=== PATIENT | male | born 1980 | race Caucasian/White ===

== ENCOUNTER 2023-04-14 09:21 | Emergency (ER) | payer MEDICAID, SELFPAY ==
--- NOTE | ~2023-04-14 | XR_ITS ---
EXAMINATION: XR ABDOMEN KUB CLINICAL INDICATION: Abdominal pain, constipation. COMPARISON: None available. TECHNIQUE: AP view of the abdomen. FINDINGS: There is scattered stool and gas seen throughout the colon without distention. The small bowel loops are normal caliber. There is no organomegaly. There is a 1 cm and is 0.61 cm radiopaque densities overlying the right kidney likely stones. Small cluster of stones grouped together measuring 8mm overlying the lower pole left kidney. There is mild degenerative disc changes L2-L3 disc level. No visible acute fracture or dislocation seen. SI joints are symmetrical and normal. XR/XR KUB IMPRESSION: 1. Mild constipation. No acute process seen. 2. Mild degenerative disc changes L2-L3 disc level. 3. Radiopaque densities overlying both kidneys likely calculi.
[2023-04-14 09:28] VITALS: BP 168/86; PULSE 62; RESP 21; TEMP 36.9; O2SAT 97; BMI 36.2
--- NOTE | 2023-04-14 09:50 | ECG_ITS ---
Test Reason : cp Blood Pressure : / mmHG Vent. Rate : 061 BPM Atrial Rate : 061 BPM P-R Int : 150 ms QRS Dur : 096 ms QT Int : 392 ms P-R-T Axes : 014 036 018 degrees QTc Int : 394 ms Normal sinus rhythm Nonspecific T wave abnormality Abnormal ECG When compared with ECG of 20-JUL-2012 14:36, RSR' pattern in V1 is no longer Present Referred By: Generic ED Physician Electronically Signed By:KIMBERLY SANCHEZ
[2023-04-14 11:11] LABS: MANUAL DIFF FLAG NO
[2023-04-14 11:13] LABS: Basophils Absolute Auto 0.1 X10*3/uL (0.0-0.2); Basophils Percent Auto 0.6 % (0-2); Eosinophils Percent Auto 0.2 % (0-4); Hematocrit 41.8 % (42.0-52.0); Hemoglobin 14.5 g/dl (14.0-18.0); Imm Gran Abs Auto 0.02 X10*3/uL (0.00-0.03); Imm Gran Pct Auto 0.2 % (0.0-0.4); Lymphocytes Absolute Auto 1.9 X10*3/uL (1.2-4.9); Lymphocytes Percent Auto 21.4 % (20-40); Mean Corpuscular HGB Conc 34.7 g/dl (31.0-36.0); Mean Corpuscular Hemoglobin 29.4 pg (27.0-33.0); Mean Corpuscular Volume 84.6 fL (80.0-98.0); Mean Platelet Volume 12.1 fL (9.4-12.4); Monocytes Absolute Auto 0.8 X10*3/uL (0.1-1.2); Monocytes Percent Auto 8.4 % (2-11); Neutrophils Absolute Auto 6.2 x10*3/uL (2.0-8.3); Neutrophils Percent Auto 69.2 % (45-73); Red Blood Count 4.94 X10*6/uL (4.60-5.80); Red Cell Distribution Width 12.8 % (11.0-16.0)
[2023-04-14 11:28] LABS: Anion Gap 13 (12-20); Blood Urea Nitrogen 14 mg/dL (9-16); Carbon Dioxide 20 mmol/L (22-29); Chloride 107 mmol/L (96-108); Creatinine Clr Calc Pharmacy 147.2; Estimated Glomerular Filt Rate > 60; Glucose Random 99 mg/dL (60-115); Magnesium 2.2 mg/dL (1.6-2.6); Potassium 3.8 mmol/L (3.3-5.1); Sodium 136 mmol/L (135-145)
[2023-04-14 11:31] LABS: Platelet Count 89 X10*3/uL (160-400)
--- NOTE | 2023-04-14 11:54 | ED_ITS ---
HPI - General Adult General Chief complaint: General Medical Stated complaint: Chest pain, insomnia Time Seen by Provider: 04/14/23 11:54 Source: patient and family (patient's sister and mother) Mode of arrival: ambulatory Limitations: no limitations History of Present Illness HPI narrative: Patient is a 42 year old assigned male at with a history of heroin use presenting to the emergency department today with general body aches and no energy. Patient states that he feels generally unwell and wants help detoxing from heroin. Patient states that he hasn't had a bowel movement in a week. Patient denies any dizziness, lightheadedness, abdominal pain, nausea, vomiting, fever, chills, blurry vision, double vision, loss of vision, chest pain, difficulty breathing, shortness of breath, back pain, night sweats, pain with urination, increased urinary frequency, increased urinary urgency, blood in his urine or stool, syncope or a near syncopal episode, recent trauma or falls, bowel incontinence, bladder incontinence, or any other complaints at this time. Relieving factors: none Exacerbating factors: none Treatments prior to arrival: none Related Data Previous Rx's Medication Instructions Recorded hydroxyzine HCl 25 mg tablet 25 mg PO BID PRN anxiety #14 tabs 04/14/23 Allergies Allergy/AdvReac Type Severity Reaction Status Date / Time No Known Allergies Allergy Unverified 04/14/23 14:45 Review of Systems 2 Constitutional: Constitutional: Reports no additional constitutional complaints, Reports body ache(s), Denies chills, Denies fever(s), Denies night sweats and Reports weakness Eyes: Eyes: Reports no additional eye complaints, Denies blurry vision, Denies change in vision, Denies diplopia, Denies eye discharge, Denies loss of vision and Denies eye pain ENT: Denies dizziness Cardiovascular: Cardiovascular: Reports no additional cardiovascular complaints, Denies chest pain, Denies lightheadedness, Denies Loss of Consciousness and Denies dyspnea Respiratory: Respiratory: Reports no additional respiratory complaints and Denies dyspnea Gastrointestinal: Gastrointestinal: Reports no additional gastrointestinal complaints, Denies abdominal pain, Denies melena, Denies hematochezia, Denies change in bowel habits, Denies change in stool character and Reports constipation Genitourinary: Genitourinary: Reports no additional male genitourinary complaints, Denies hematuria, Denies oliguria, Denies difficulty urinating, Denies dysuria, Denies urinary frequency, Denies urinary hesitancy, Denies urinary incontinence and Denies urinary urgency Musculoskeletal: Musculoskeletal: Reports no additional musculoskeletal complaints, Denies numbness and Denies tingling Neurologic: Denies dizziness, Denies loss of vision, Denies numbness, Denies tingling and Reports weakness Psychiatric: Psychiatric: Reports no additional psychiatric complaints Endocrine: Endocrine: Reports no additional endocrine complaints Hematologic/Lymphatic: Hematologic/Lymphatic: Reports no additional hematologic/lymphatic complaints Allergic/Immunologic: Allergic/Immunologic: Reports no additional allergic/immunologic complaints PMFSH Past Medical History Attestation statement: The following information was validated with the patient. (all information validated with the patient's mother and sister.) Source: old records reviewed, obtained from family (patient's sister and mother provided additional history and confirmed the history provided by the patient.) and nursing notes reviewed Onset Date is defined in the Problem List Problems that require an onset date and time if occurred within 24 hrs of arrival to the ED Aortic Dissection and Rupture; Neurologic impairment; Cardiopulmonary Arrest; Endotracheal Intubation; Insertion or Replacement of Mechanical Circulatory Assist Device Physical Exam ED Vital Signs: Vital Signs - 24 hr 04/14/23 09:28 04/14/23 12:20 04/14/23 14:22 Temperature 98.5 F 98.1 F Pulse Rate 62 54 59 Respiratory Rate 21 H 18 19 Blood Pressure 168/86 H 142/90 H 158/93 H Pulse Oximetry 97 97 98 Oxygen Delivery Method Room Air Room Air Room Air BMI result Body Mass Index 36.2 Const General: cooperative, no acute distress, alert and awake Nutritional Appearance: well nourished Orientation/consciousness: patient oriented x3 Limitations: no limitations [facility] Head: Yes normal to inspection and Yes atraumatic Ears: hearing grossly normal bilaterally and external ears normal General nose exam: Normal external nose present, no nasal discharge noted and no epistaxis Face and sinus: Yes normal facial exam, No abrasion and No laceration Mouth: Normal oral and palatal mucosa present, no drooling and no muffled voice Eyes General: appearance normal, both eyes and all related structures Periorbital: periorbital findings normal Eyelids: Yes eyelids normal Conjunctivae: conjunctivae normal Pupils: Equal, round and reactive pupils present EOM: EOMs intact bilaterally Neck Neck: Yes normal visual inspection, Yes full ROM and Yes no lymphadenopathy Chest Chest palpation & inspection: normal inspection of the chest Resp Effort & Inspection: normal respiratory effort and able to speak in complete sentences GI Inspection: Yes normal to inspection Palpation (GI): Soft to palpation, not firm, nontender and no guarding Neuro General: patient oriented x3 and moves all extremities Cranial nerves: Yes Equal, round and reactive pupils present Cognition (Neuro): normal cognition Motor exam (neuro): 5/5 motor strength present throughout Sensory Exam: Normal double simultaneous stimulation for sensation Coordination: [id number] test normal Extrem General: Yes normal to inspection, Yes full ROM and Yes capillary refill normal Psych Appearance: grossly normal Mental Status: mental status grossly normal Affect: normal affect Attitude: cooperative Thought process: Normal thought process present Thought content: Normal thought content present Insight: Good insight present (Psych) Medications Administered Discontinued Medications Generic Name Dose Route Start Last Admin Trade Name Freq PRN Reason Stop Dose Admin Sodium Chloride 1,000 mls @ 999 mls/hr 04/14/23 12:00 04/14/23 13:06 Ns IV 04/14/23 13:00 999 mls/hr .Q1H1M HELEN Administration Naloxone HCl 8 mg 04/14/23 14:03 04/14/23 14:21 Naloxone Hcl Nasal Take Home 4 Mg Bodfish NOSTRILALT 04/14/23 14:04 8 mg ONCE ONE Administration Medical Decision Making Medical Decision Making [facility] Narrative: Patient is a 42 year old assigned male at with a history of heroin use presenting to the emergency department today with increased anxiety and body aches. Patient's physical exam was unremarkable. Patient's blood work showed a mildly elevated total CK for which he was given IV fluids. Patient's EKG was unremarkable. Patient's KUB x-ray showed mild constipation. Addiction met with the patient and set him up with an outpatient appointment at the [facility]. I explained my physical exam findings as well as all test results to the patient, the patient's sister, and the patient's mother. I answered all questions asked by the patient, the patient's mother, and the patient's sister. I stressed the importance of the patient taking his medication as prescribed. I stressed the importance of the patient following up with his primary care provider and the [facility]. I stressed the importance of the patient returning to the emergency department immediately if his symptoms were to worsen or if he were to develop any dizziness, shortness of breath, difficulty breathing, chest pain, blurry vision, loss of vision, nausea, vomiting, abdominal pain, fever, chills, back pain, or any other complaints. Patient, the patient's sister, and the patient's mother verbalized agreement and understanding with this treatment plan and discharge. Differential Diagnosis Differential Diagnoses: The differential diagnosis associated with the presentation includes Opiate use Detox Constipation Anxiety Admission/Observation Consideration of admission/observation: Escalation of care including admission/observation considered Patient would have been admitted to the hospital had his work up had any findings where hospital admission was appropriate and his clinical presentation warranted hospital admission. Consult Healthcare Provider Management of the patient was discussed with: Behavioral Health Provider (spoke with addiction was noted in the MDM Rationale portion of this note) Lab Data [facility] Lab Attestation statement: I reviewed the patient's lab results. My interpretation of these results are in the MDM Rationale portion of this note. 04/14/23 11:06 04/14/23 11:06 Labs: Lab Results 04/14/23 04/14/23 04/14/23 Range/Units 11:06 12:19 13:30 WBC 9.0 (4.8-10.8) X10*3/uL RBC 4.94 (4.60-5.80) X10*6/uL Hgb 14.5 (14.0-18.0) g/dl Hct 41.8 L (42.0-52.0) % MCV 84.6 (80.0-98.0) fL MCH 29.4 (27.0-33.0) pg MCHC 34.7 (31.0-36.0) g/dl RDW 12.8 (11.0-16.0) % Plt Count 89 L (160-400) X10*3/uL MPV 12.1 (9.4-12.4) fL Immature Gran % (Auto) 0.2 (0.0-0.4) % Neut % (Auto) 69.2 (45-73) % Lymph % (Auto) 21.4 (20-40) % [place] % (Auto) 8.4 (2-11) % Eos % (Auto) 0.2 (0-4) % Baso % (Auto) 0.6 (0-2) % Lymph # (Auto) 1.9 (1.2-4.9) X10*3/uL [place] # (Auto) 0.8 (0.1-1.2) X10*3/uL Eos # (Auto) 0.0 (0.0-0.4) X10*3/uL Baso # (Auto) 0.1 (0.0-0.2) X10*3/uL Abs Immat Gran (auto) 0.02 (0.00-0.03) X10*3/uL Absolute Neuts (auto) 6.2 (2.0-8.3) x10*3/uL Absolute Nucleated RBC 0.000 (0.0-0.012) X10*3/uL Nucleated RBC % (auto) 0.0 (0.0-0.2) /100WBC Sodium 136 (135-145) mmol/L Potassium 3.8 (3.3-5.1) mmol/L Chloride 107 (96-108) mmol/L Carbon Dioxide 20 L (22-29) mmol/L Anion Gap 13 (12-20) BUN 14 (9-16) mg/dL Creatinine 0.86 (0.5-1.4) mg/dL Estim Creat Clear Calc 147.2 Estimated GFR > 60 Random Glucose 99 (60-115) mg/dL Calcium 12.0 H (8.4-10.2) mg/dL Magnesium 2.2 (1.6-2.6) mg/dL Total Creatine Kinase 406 H (38-174) U/L Troponin I High Sens 5.0 (<3.5-35.0) ng/L Vitamin B12 591 (200-900) pg/mL Urine Opiates Screen (Not Detect) Urine Fentanyl Screen (Not Detect) Ur Barbiturates Screen (Not Detect) Ur Phencyclidine Scrn (Not Detect) Ur Amphetamines Screen (Not Detect) U Benzodiazepines Scrn (Not Detect) Urine Cocaine Screen (Not Detect) U Marijuana (THC) Screen (Not Detect) COVID-19 (HELLEN) Negative (Negative) COVID-19 Clin Com See Note Influenza Type A (LUIS ANGEL) Negative (Negative) Influenza Type B (LUIS ANGEL) Negative (Negative) Influenza A & B Note See Note 04/14/23 Range/Units 13:45 WBC (4.8-10.8) X10*3/uL RBC (4.60-5.80) X10*6/uL Hgb (14.0-18.0) g/dl Hct (42.0-52.0) % MCV (80.0-98.0) fL MCH (27.0-33.0) pg MCHC (31.0-36.0) g/dl RDW (11.0-16.0) % Plt Count (160-400) X10*3/uL MPV (9.4-12.4) fL Immature Gran % (Auto) (0.0-0.4) % Neut % (Auto) (45-73) % Lymph % (Auto) (20-40) % [place] % (Auto) (2-11) % Eos % (Auto) (0-4) % Baso % (Auto) (0-2) % Lymph # (Auto) (1.2-4.9) X10*3/uL [place] # (Auto) (0.1-1.2) X10*3/uL Eos # (Auto) (0.0-0.4) X10*3/uL Baso # (Auto) (0.0-0.2) X10*3/uL Abs Immat Gran (auto) (0.00-0.03) X10*3/uL Absolute Neuts (auto) (2.0-8.3) x10*3/uL Absolute Nucleated RBC (0.0-0.012) X10*3/uL Nucleated RBC % (auto) (0.0-0.2) /100WBC Sodium (135-145) mmol/L Potassium (3.3-5.1) mmol/L Chloride (96-108) mmol/L Carbon Dioxide (22-29) mmol/L Anion Gap (12-20) BUN (9-16) mg/dL Creatinine (0.5-1.4) mg/dL Estim Creat Clear Calc Estimated GFR Random Glucose (60-115) mg/dL Calcium (8.4-10.2) mg/dL Magnesium (1.6-2.6) mg/dL Total Creatine Kinase (38-174) U/L Troponin I High Sens (<3.5-35.0) ng/L Vitamin B12 (200-900) pg/mL Urine Opiates Screen POSITIVE H (Not Detect) Urine Fentanyl Screen POSITIVE H (Not Detect) Ur Barbiturates Screen Not Detected (Not Detect) Ur Phencyclidine Scrn Not Detected (Not Detect) Ur Amphetamines Screen Not Detected (Not Detect) U Benzodiazepines Scrn Not Detected (Not Detect) Urine Cocaine Screen Not Detected (Not Detect) U Marijuana (THC) Screen Not Detected (Not Detect) COVID-19 (HELLEN) (Negative) COVID-19 Clin Com Influenza Type A (LUIS ANGEL) (Negative) Influenza Type B (LUIS ANGEL) (Negative) Influenza A & B Note Independent Interpretation I performed an independent interpretation of an: EKG and Plain X-Ray Interpretation: My interpretation is in agreement with the radiologist's impression of this imaging study. - EXAMINATION: XR ABDOMEN KUB CLINICAL INDICATION: Abdominal pain, constipation. COMPARISON: None available. TECHNIQUE: AP view of the abdomen. FINDINGS: There is scattered stool and gas seen throughout the colon without distention. The small bowel loops are normal caliber. There is no organomegaly. There is a 1 cm and is 0.61 cm radiopaque densities overlying the right kidney likely stones. Small cluster of stones grouped together measuring 8mm overlying the lower pole left kidney. There is mild degenerative disc changes L2-L3 disc level. No visible acute fracture or dislocation seen. SI joints are symmetrical and normal. XR/XR KUB IMPRESSION: 1. Mild constipation. No acute process seen. 2. Mild degenerative disc changes L2-L3 disc level. 3. Radiopaque densities overlying both kidneys likely calculi. Dictated By: Zoran Ingram MD Signed By: Electronically signed by Zoran Ingram MD 04/14/23 1257 Vent. Rate: 061 BPM Atrial Rate: 061 BPM P-R Int: 150 ms QRS Dur: 096 ms QT Int: 392 ms P-R-T Axes: 014 036 018 degrees QTc Int: 394 ms Normal sinus rhythm Nonspecific T wave abnormality Abnormal ECG When compared with ECG of 20-JUL-2012 14:36, RSR' pattern in V1 is no longer Present Electronically Signed By:BERT SANCHEZ Dictated By: Bert Sanchez MD Signed By: Electronically signed by Bert Sanchez MD 04/14/23 1408 Radiology Impression Discussion of test interpretation with radiology: I have reviewed the radiologist's reading. Independent Historian Clinical information obtained from an independent historian. History obtained from or confirmed by: Parent (patient's mother provided additional history and confirmed the history provided by the patient.) and Other (patient's sister provided additional history and confirmed the history provided by the patient.) Critical Care Time Critical Care Time Critical Care Time: Yes Total Critical Care Time: 35 Attestation: I spent 35 minutes of Critical Care Time with this patient. This does not include time spent on separately reported billable procedures. Discharge Plan Discharge Clinical Impression: Opiate use, Anxiety Patient Disposition: Home, Self-Care Instructions: Anxiety (ED), Opioid Use Disorder (ED) Additional Instructions: Follow up with your primary care provider and the addiction team. Return to the emergency department immediately if your symptoms worsen or if you develop any dizziness, shortness of breath, difficulty breathing, chest pain, blurry vision, loss of vision, nausea, vomiting, abdominal pain, fever, chills, back pain, or any other complaints. Prescriptions: New hydroxyzine HCl 25 mg tablet 25 mg PO BID PRN (Reason: anxiety) Qty: 14 0RF Referrals: Zeke Crow MD [Primary Care Provider] - Interventions: ED Discharge Assessment Last Done: 04/14/23 14:26 Discharge Date/Time: 04/14/23 14:26 Print Language: Greek
[2023-04-14 12:20] VITALS: BP 142/90; PULSE 54; RESP 18; TEMP 36.7; O2SAT 97
[2023-04-14 12:42] LABS: COVID-19 Test Negative (Negative); IDNOW Serial# 152EDE1D
[2023-04-14 12:43] LABS: IDNOW Serial# 08D9AD1C; Influenza A Negative (Negative); Influenza B2 Negative (Negative)
[2023-04-14] MEDS: 0.9 % Sodium Chloride 1,000 ML 999 ML IV (13:06)
[2023-04-14 14:05] LABS: Amphetamine Screen Urine Not Detected (Not Detect); Barbiturates, Urine Not Detected (Not Detect); Benzodiazepines Screen Urine Not Detected (Not Detect); Cannabinoid Screen Urine Not Detected (Not Detect); Cocaine Screen Urine Not Detected (Not Detect); Fentanyl, urine POSITIVE (Not Detect); Opiate Screen Urine POSITIVE (Not Detect); Phencyclidine Screen Urine Not Detected (Not Detect)
[2023-04-14] MEDS: Naloxone HCl Nasal TAKE HOME 4 MG SPRAY 8 MG NOSTRILALT (14:21)
[2023-04-14 14:22] VITALS: BP 158/93; PULSE 59; RESP 19; O2SAT 98
[2023-04-14 14:31] LABS: Vitamin B12 591 pg/mL (200-900)
--- NOTE | 2023-04-14 15:42 | MHC.RECOVRN ---
Met with pt in ED12 after provider request. Pt had presented to the ED this morning reporting no energy, swollen tongue, wekaness, general body aches, stressors of life, as well as substance use. Pt sitting in bed, awake, alert, easily engages in conversation. Pts mother and sister are present, pt gives permission for their presence during conversation. Pt reports using heroin/fentanyl x 10 years, currently IN. Pt reports hx IV, however, is now using IN due to not being able to find access. Pt reports he is currently using 2 bundles daily. Pt reports he began using opioids after a tooth extraction and receiving Percocet. Pt evenutally began using heroin for cost effectiveness. Pt denies hx tx. Pt reports he has been maintaining for 10 years. Does not have legal issues, has never sought treatment, no hx overdoses, no hx MOUD. Pt states I use to just not be sick, not to get high. 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 Pt reports he attempted to discontinue use shortly after I started for 2 weeks, however, persistent withdrawal symptoms lead to return to use. Pt reports that was the longest amount of time in recovery. Currently, pt is interested in Suboxone. Discussed different induction methods, educated pt on the medication. Pt is interested in initiating care at the [facility]. Pt denies other questions or concerns for t/w. Discussed with provider, pt to present as walk in to [facility] after dc from ED, t/w to escort.
== END 2023-04-14 14:26 | disposition home or self-care (01) ==
PROVIDERS: Physician Assistant Medical; Emergency Provider Emergency Medicine; PCP Family Medicine
DX: F11.20 Opioid dependence, uncomplicated (principal); F41.9 Anxiety disorder, unspecified; K59.09 Other constipation; Z11.52 Encounter for screening for COVID-19
CPT/HCPCS: 36415; 74018; 80048; 80307; 82550; 82607; 83735; 84484; 85025; 87502; 87635; 93005; 99212; 99284

== ENCOUNTER → 2023-04-14 09:50 | Outpatient (BNV) | payer SELFPAY | PROVIDERS: Emergency Provider Emergency Medicine; PCP Family Medicine; Visit Provider Internal Medicine | DX: R94.31 Abnormal electrocardiogram [ECG] [EKG] (principal) | CPT/HCPCS: 93010 ==

== ENCOUNTER 2023-04-14 14:45 | Outpatient (AMB) | payer MEDICAID, SELFPAY ==
--- NOTE | 2023-04-14 14:39 | MHC.AM.SUB ---
Intake Vital Signs 04/14/23 14:44 BP 134/76 Blood Pressure Location Lt radial Position Sitting Pulse 70 Pulse Source Pulse Oximeter Pulse Oximetry (%) 97 Oxygen Delivery Method Room Air Intake Visit Reasons: Walk in Intake Note: the patient presents for a mat intake Concession Attendant Required: No Allergies No Known Allergies Allergy (Unverified 04/14/23 14:45) HPI Walk in HPI Details Patient presents as a walk in to establish care with the [facility] after visit to the ED today He reports he has not slept or eating in the past 5 days due to anxiety over recent job loss, he was feeling weak which prompted the ED visit. He has been using opiates x 10 years and just disclosed this to his family PCP is Dr. Crow at [facility] whom he hasn't seen in years Patient is stably housed at this time Lives with his long time gf (20+ years) and two teenaged children (16 and 19yo) He identifies his entire family as a support system for him Substance Use Hx He began taking oxycodone 5mgs recreationally after a wisdom tooth extraction 10 years ago He took pills for 2 years and transitioned to heroin after that because it was cheaper His current use is 2-3 bundles daily intra-nasal He has tried to self detox x 1 and lasted 2 weeks before resuming use- 6 years ago He has never overdosed He occasionally will take THC gummies for anxiety He drinks alcohol socially He denies any other substance use He has used needles in the past to inject, denies ever sharing them and would only use the needle once before discarding He has never participated in substance use treatment HX He has no providers or formal diagnoses Denies hx of self harming thoughts or behaviors, has never been psychiatrically hospitalized Medical Hx NKA Denies any medical conditions or home meds Has not seen his PCP in years He is on probation but per self report has no pending court cases, DCF involvement or hx of incarceration Review of Systems Const Reports as per HPI, Reports anorexia and Reports poor appetite Psych Reports anxiety, Denies homicidal ideation and Denies suicidal ideation Physical Exam Vital Signs: Last Vital Signs Pulse 70 04/14/23 14:44 BP 134/76 04/14/23 14:44 Pulse Ox 97 04/14/23 14:44 Oxygen Delivery Method Room Air 04/14/23 14:44 Const General: cooperative and no acute distress Resp Effort & Inspection: normal respiratory effort Psych Appearance: grossly normal Mental Status: mental status grossly normal Speech and movement: Normal speech and movement present Affect: Irritable affect present Attitude: Guarded attititude/behavior present Thought process: Normal thought process present Thought content: Normal thought content present Assessment & Plan Assessment & Plan (1) Opiate use: Code(s): F11.90 - Opioid use, unspecified, uncomplicated Plan: -Plan to start bup with microinduction, this was reviewed at length with the patient, and he was provided written instructions -Offered Narcan, he reports he already has some -Offered swimming coach or instructor referral which he declined -Comfort medications sent to pharmacy, provided med education via telephone -Will follow up via phone tomorrow with patient to discuss any questions or concerns pt may have -He is to follow up with clinic in 1 week Orders: Orders Complete Blood Count Auto Diff Today Z76.89 - Persons encountering health services in other specified circumstances Comprehensive Met. Panel Today Z76.89 - Persons encountering health services in other specified circumstances Creatine Kinase Total Today Z76.89 - Persons encountering health services in other specified circumstances Magnesium Today Z76.89 - Persons encountering health services in other specified circumstances Hepatitis A,B,C Profile Today Z76.89 - Persons encountering health services in other specified circumstances Medications: New buprenorphine-naloxone 8-2 mg 1 film buccal DAILY 4 ea 0RF buprenorphine-naloxone 2-[address] 1 strip/tab under (each) side of tongue 1 film buccal DAILY 12 ea 0RF ondansetron 4 mg PO Q8H PRN 21 tabs 0RF nausea and vomiting clonidine HCl 0.1 mg PO BID 14 tabs 0RF dicyclomine 20 mg PO QID PRN 30 tabs 0RF abdominal pain cyclobenzaprine 10 mg PO TID PRN 21 tabs 0RF muscle spasm Coding Level of Care Code New Pt Level 4 (59336) Diagnoses Opiate use F11.90
[2023-04-14 14:44] VITALS: BP 134/76; PULSE 70; O2SAT 97
== END 2023-04-14 15:14 | disposition home or self-care (01) ==
PROVIDERS: PCP Family Medicine; Visit Provider Nurse Practitioner Family
DX: F11.90 Opioid use, unspecified, uncomplicated (principal)
CPT/HCPCS: 99204

== ENCOUNTER 2023-04-15 13:15 | Outpatient (REF) | payer MEDICAID, SELFPAY ==
[2023-04-15 13:39] LABS: MANUAL DIFF FLAG NO
[2023-04-15 14:15] LABS: Basophils Absolute Auto 0.1 X10*3/uL (0.0-0.2); Basophils Percent Auto 0.7 % (0-2); Eosinophils Percent Auto 0.4 % (0-4); Hematocrit 41.3 % (42.0-52.0); Hemoglobin 14.9 g/dl (14.0-18.0); Imm Gran Abs Auto 0.02 X10*3/uL (0.00-0.03); Imm Gran Pct Auto 0.2 % (0.0-0.4); Lymphocytes Absolute Auto 2.3 X10*3/uL (1.2-4.9); Lymphocytes Percent Auto 26.9 % (20-40); Mean Corpuscular HGB Conc 36.1 g/dl (31.0-36.0); Mean Corpuscular Hemoglobin 29.5 pg (27.0-33.0); Mean Corpuscular Volume 81.8 fL (80.0-98.0); Mean Platelet Volume 10.9 fL (9.4-12.4); Monocytes Absolute Auto 0.8 X10*3/uL (0.1-1.2); Monocytes Percent Auto 9.2 % (2-11); Neutrophils Absolute Auto 5.2 x10*3/uL (2.0-8.3); Neutrophils Percent Auto 62.6 % (45-73); Platelet Count 243 X10*3/uL (160-400); Red Blood Count 5.05 X10*6/uL (4.60-5.80); Red Cell Distribution Width 12.8 % (11.0-16.0); White Blood Count 8.4 X10*3/uL (4.8-10.8)
[2023-04-15 14:30] LABS: Alanine Aminotransferase 27 U/L (0-40); Albumin Level 4.6 g/dL (3.5-5.0); Alkaline Phosphatase 130 U/L (39-117); Anion Gap 10 (12-20); Aspartate Amino Transferase 20 U/L (5-37); Bilirubin Total 0.9 mg/dL (0.0-1.0); Blood Urea Nitrogen 13 mg/dL (9-16); Calcium 12.2 mg/dL (8.4-10.2); Carbon Dioxide 25 mmol/L (22-29); Chloride 108 mmol/L (96-108); Estimated Glomerular Filt Rate > 60; Glucose Random 155 mg/dL (60-115); Magnesium 2.1 mg/dL (1.6-2.6); Potassium 3.2 mmol/L (3.3-5.1); Sodium 140 mmol/L (135-145); Total Protein 7.5 g/dL (6.5-8.0)
[2023-04-16 04:22] LABS: HBS Num1 0.02 mIU/mL (0-7.99); HBc Num1 0.08 S/CO (0.00-0.79); HBsAGNum1 0.29 S/CO (0.00-0.99); Hepatitis A Antibody IgM 0.13 Index (0-0.79); Hepatitis B Core Antibody Nonreactive (Nonreactive); Hepatitis B Surface Antigen Negative (Negative); ~HepC Num1 0.15 S/CO (0.00-0.79); ~Hepatitis A Antibody IgM Nonreactive (Nonreactive); ~Hepatitis B Surface Antibody NONREACTIVE (Nonreactive); ~Hepatitis C Antibody Nonreactive (Nonreactive)
== END 2023-04-15 13:16 | disposition home or self-care (01) ==
LOC: HO.LAB 13:15
PROVIDERS: PCP Family Medicine; Visit Provider Nurse Practitioner Family
DX: Z76.89 Persons encountering health services in other specified circumstances (principal)
CPT/HCPCS: 36415; 80053; 82550; 83735; 85025; 86704; 86706; 86709; 86803; 87340

== ENCOUNTER 2023-04-17 09:43 | Inpatient (IN) | payer MEDICAID, SELFPAY ==
[2023-04-17] VITALS (7 sets, daily range): BP systolic 131–176; BP diastolic 80–115; PULSE 64–98; RESP 16–18; TEMP 36.4–36.9; O2SAT 95–99; BMI 35.1
--- NOTE | 2023-04-17 | ECG_ITS ---
Test Reason : ABNORMAL LABS Blood Pressure : / mmHG Vent. Rate : 070 BPM Atrial Rate : 070 BPM P-R Int : 150 ms QRS Dur : 086 ms QT Int : 366 ms P-R-T Axes : 014 058 033 degrees QTc Int : 395 ms Normal sinus rhythm with sinus arrhythmia Nonspecific T wave abnormality Borderline ECG When compared with ECG of 17-APR-2023 12:34, No significant change was found Referred By: Generic ED Physician Electronically Signed By:KIMBERLY SANCHEZ
[2023-04-17 11:36] LABS: MANUAL DIFF FLAG NO
[2023-04-17 11:38] LABS: Basophils Absolute Auto 0.1 X10*3/uL (0.0-0.2); Basophils Percent Auto 0.7 % (0-2); Eosinophils Absolute Auto 0.1 X10*3/uL (0.0-0.4); Eosinophils Percent Auto 0.8 % (0-4); Hematocrit 43.1 % (42.0-52.0); Hemoglobin 15.3 g/dl (14.0-18.0); Imm Gran Abs Auto 0.02 X10*3/uL (0.00-0.03); Imm Gran Pct Auto 0.3 % (0.0-0.4); Lymphocytes Absolute Auto 1.7 X10*3/uL (1.2-4.9); Lymphocytes Percent Auto 22.7 % (20-40); Mean Corpuscular HGB Conc 35.5 g/dl (31.0-36.0); Mean Corpuscular Hemoglobin 28.5 pg (27.0-33.0); Mean Corpuscular Volume 80.4 fL (80.0-98.0); Mean Platelet Volume 10.2 fL (9.4-12.4); Monocytes Absolute Auto 0.7 X10*3/uL (0.1-1.2); Monocytes Percent Auto 9.1 % (2-11); Neutrophils Absolute Auto 5.1 x10*3/uL (2.0-8.3); Neutrophils Percent Auto 66.4 % (45-73); Platelet Count 242 X10*3/uL (160-400); Red Blood Count 5.36 X10*6/uL (4.60-5.80); Red Cell Distribution Width 12.7 % (11.0-16.0); White Blood Count 7.6 X10*3/uL (4.8-10.8)
[2023-04-17 11:55] LABS: Alanine Aminotransferase 25 U/L (0-40); Albumin Level 4.5 g/dL (3.5-5.0); Alkaline Phosphatase 126 U/L (39-117); Anion Gap 9 (12-20); Aspartate Amino Transferase 16 U/L (5-37); Bilirubin Total 0.7 mg/dL (0.0-1.0); Blood Urea Nitrogen 10 mg/dL (9-16); Carbon Dioxide 26 mmol/L (22-29); Chloride 110 mmol/L (96-108); Creatinine Clr Calc Pharmacy 139.4; Estimated Glomerular Filt Rate > 60; Glucose Random 139 mg/dL (60-115); Potassium 3.9 mmol/L (3.3-5.1); Sodium 141 mmol/L (135-145); Total Protein 7.2 g/dL (6.5-8.0)
[2023-04-17 11:58] LABS: Calcium 12.5 mg/dL (8.4-10.2)
[2023-04-17 12:18] LABS: Phosphorus 1.4 mg/dL (2.7-4.5)
--- NOTE | 2023-04-17 12:21 | ECG_ITS ---
Test Reason : ABNORMAL LABS Blood Pressure : / mmHG Vent. Rate : 076 BPM Atrial Rate : 076 BPM P-R Int : 144 ms QRS Dur : 086 ms QT Int : 370 ms P-R-T Axes : 022 032 016 degrees QTc Int : 416 ms Normal sinus rhythm Nonspecific T wave abnormality Abnormal ECG When compared with ECG of 14-APR-2023 09:25, No significant change was found Referred By: Yari Hughes Electronically Signed By:KIMBERLY SANCHEZ
[2023-04-17 12:46] LABS: Magnesium 2.3 mg/dL (1.6-2.6)
--- NOTE | 2023-04-17 14:50 | PC.NURSE ---
Pt is currently under going harm reduction with micro dosing/suboxone through [facility] stating starting this morning he started to have dry heaving/vomiting. Reporting mild abdominal cramping. Awaiting provider at this time
[2023-04-17] MEDS: 0.9 % Sodium Chloride 1,000 ML 999 ML IV ×2 (15:46→17:24)
--- NOTE | 2023-04-17 15:51 | ED.GENADULT ---
HPI - General Adult General Chief complaint: Nausea/Vomiting/Diarrhea Stated complaint: Dehydration Time Seen by Provider: 04/17/23 15:37 History of Present Illness HPI narrative: 42 y/o M patient; PMH heroin use; presents from home reporting nausea/vomiting and decreased PO intake in the setting of detox from heroin. The patient was last seen in this ED on 04/16/2023 for generalized body aches and fatigue. He was evaluated by addiction medicine and given an appointment out-patient at the [facility]. The patient previously use 2 - 3 bundles of heroin daily via intra-nasal. He was started by addiction medicine on buprenorphine microinduction. He returns to the emergency department today due to symptomatic withdrawal. Incidentally during his last 3 ED/addiction medicine visits he has had laboratory studies with hypercalcemia noted. He reports diffuse forearm and calf cramps bilaterally, nausea/vomiting, constipation, insomnia within the last two weeks. Related Data Previous Rx's Medication Instructions Recorded buprenorphine 2 mg-naloxone 0.5 mg 1 film buccal DAILY #12 ea 04/14/23 sublingual film buprenorphine 8 mg-naloxone 2 mg 1 film buccal DAILY #4 ea 04/14/23 sublingual film hydroxyzine HCl 25 mg tablet 25 mg PO BID PRN anxiety #14 tabs 04/14/23 clonidine HCl 0.1 mg tablet 0.1 mg PO BID #14 tabs 04/15/23 cyclobenzaprine 10 mg tablet 10 mg PO TID PRN muscle spasm #21 04/15/23 tabs dicyclomine 20 mg tablet 20 mg PO QID PRN abdominal pain 04/15/23 #30 tabs ondansetron 4 mg disintegrating 4 mg PO Q8H PRN nausea and 04/15/23 tablet vomiting #21 tabs potassium chloride 20 mEq oral 20 meq PO BID #30 ea 04/15/23 packet Allergies Allergy/AdvReac Type Severity Reaction Status Date / Time No Known Allergies Allergy Verified 04/17/23 09:58 Review of Systems Review of Systems: Yes all other systems are reviewed and are negative Neurologic: Denies Sensory deficit (Neuro) PMFSH Past Medical History Attestation statement: The following information was validated with the patient. Source: old records reviewed Onset Date is defined in the Problem List Problems that require an onset date and time if occurred within 24 hrs of arrival to the ED Aortic Dissection and Rupture; Neurologic impairment; Cardiopulmonary Arrest; Endotracheal Intubation; Insertion or Replacement of Mechanical Circulatory Assist Device Social History Social History Use of substances other than those prescribed or required for medical reasons: Yes Substance Use Type: Heroin Substance Use Frequency: Daily Last Used Substance: Just Prior to Admission Advance Directives: No Advance Directives Information Provided: No Physical Exam ED Vital Signs: Vital Signs - 24 hr 04/17/23 09:54 04/17/23 14:43 04/17/23 15:30 Temperature 97.5 F 98.5 F Pulse Rate 98 76 74 Respiratory Rate 16 18 18 Blood Pressure 176/115 H 156/96 H 150/99 H Pulse Oximetry 98 99 Oxygen Delivery Method Room Air Room Air Room Air BMI result Body Mass Index 35.1 Patient is afebrile, mildly hypertensive. Const Orientation/consciousness: patient oriented x3 HENMT Head: Yes atraumatic Eyes General: appearance normal, both eyes and all related structures Neck Neck: Yes full ROM, Yes supple and No tender Chest Chest palpation & inspection: normal inspection of the chest and normal palpation of entire chest wall Resp Effort & Inspection: normal respiratory effort, able to speak in complete sentences, no cough and no respiratory distress Auscultation: clear to auscultation bilaterally Cardio Rate: regular rate Rhythm: regular rhythm Peripheral pulses: Peripheral pulses 2+ throughout GI Inspection: No Abdominal wall edema and No distended Palpation (GI): Soft to palpation, not firm, nontender, no guarding and not rigid Auscultation: normal bowel sounds Neuro General: patient oriented x3, moves all extremities, No no focal motor deficits and CN's II-XI intact bilaterally Sensory Exam: No Sensory deficit (Neuro) Course Course Course Narrative: Patient is afebrile and hypertensive. Reviewed labs - noted trend of worsening hypercalcemia. Added labs for PTH and TSH. Low TSH - added T3 and T4. Patient's HCO3 and albumin is appropriate - less likely patient's hypercalcemia is 2/2 to dehydration. Provided 2L IVF for hypercalcemia tx. Due to patient's worsening hypercalcemia, hypophosphatemia, and failure to thrive with significantly decreased PO intake - will discuss with hospitalist. Plan: Admit to hospitalist Medications Administered Discontinued Medications Generic Name Dose Route Start Last Admin Trade Name Freq PRN Reason Stop Dose Admin Sodium Chloride 1,000 mls @ 999 mls/hr 04/17/23 15:00 04/17/23 15:46 Ns IV 04/17/23 16:00 999 mls/hr .Q1H1M HELEN Administration Medical Decision Making Lab Data 04/17/23 11:30 04/17/23 11:30 Labs: Lab Results 04/17/23 Range/Units 11:30 WBC 7.6 (4.8-10.8) X10*3/uL RBC 5.36 (4.60-5.80) X10*6/uL Hgb 15.3 (14.0-18.0) g/dl Hct 43.1 (42.0-52.0) % MCV 80.4 (80.0-98.0) fL MCH 28.5 (27.0-33.0) pg MCHC 35.5 (31.0-36.0) g/dl RDW 12.7 (11.0-16.0) % Plt Count 242 (160-400) X10*3/uL MPV 10.2 (9.4-12.4) fL Immature Gran % (Auto) 0.3 (0.0-0.4) % Neut % (Auto) 66.4 (45-73) % Lymph % (Auto) 22.7 (20-40) % [place] % (Auto) 9.1 (2-11) % Eos % (Auto) 0.8 (0-4) % Baso % (Auto) 0.7 (0-2) % Lymph # (Auto) 1.7 (1.2-4.9) X10*3/uL [place] # (Auto) 0.7 (0.1-1.2) X10*3/uL Eos # (Auto) 0.1 (0.0-0.4) X10*3/uL Baso # (Auto) 0.1 (0.0-0.2) X10*3/uL Abs Immat Gran (auto) 0.02 (0.00-0.03) X10*3/uL Absolute Neuts (auto) 5.1 (2.0-8.3) x10*3/uL Absolute Nucleated RBC 0.000 (0.0-0.012) X10*3/uL Nucleated RBC % (auto) 0.0 (0.0-0.2) /100WBC Sodium 141 (135-145) mmol/L Potassium 3.9 D (3.3-5.1) mmol/L Chloride 110 H (96-108) mmol/L Carbon Dioxide 26 (22-29) mmol/L Anion Gap 9 L (12-20) BUN 10 (9-16) mg/dL Creatinine 0.92 (0.5-1.4) mg/dL Estim Creat Clear Calc 139.4 Estimated GFR > 60 Random Glucose 139 H (60-115) mg/dL Calcium 12.5 H* (8.4-10.2) mg/dL Phosphorus 1.4 L (2.7-4.5) mg/dL Magnesium 2.3 (1.6-2.6) mg/dL Total Bilirubin 0.7 (0.0-1.0) mg/dL AST 16 (5-37) U/L ALT 25 (0-40) U/L Alkaline Phosphatase 126 H (39-117) U/L Total Protein 7.2 (6.5-8.0) g/dL Albumin 4.5 (3.5-5.0) g/dL Lipase 15 (8-78) U/L TSH 0.25 L (0.32-4.0) uIU/mL Discharge Plan Discharge Clinical Impression: Hypercalcemia, Hypophosphatemia, Adult failure to thrive Patient Disposition: Admitted As Inpatient
[2023-04-17 16:30] LABS: Lipase 15 U/L (8-78)
[2023-04-17 16:51] LABS: Thyroid Stimulating Hormone 0.25 uIU/mL (0.32-4.0)
[2023-04-17 17:18] LABS: Parathyroid Hormone Intact 450.6 pg/mL (8.7-77.1)
--- NOTE | 2023-04-17 17:43 | P.HPHOSP_ITS ---
History of Present Illness Date of Service: 04/17/23 Chief Complaint: weakness, poor appetite 42M PMH mood disorder, opiate dependence, nephrolithiasis presented with 2-3 weeks of feeling unwell. Patient reports poor intake, body aches, dysphagia. has been having difficulty staying hydrated. went to opiate program after symptoms began and started on suboxone. symptoms ongoing. on 04/14/23 labs found to have hypercalcemia 12, with some signs of concentration. in ED calcium now 12.5, albumin 4.6, PTH 450.6, tsh 0.25. Review of Systems 2 Review of Systems: Yes all other systems are reviewed and are negative [facility] Medical History (Updated 04/17/23 @ 17:50 by Daron Owen MD) Nephrolithiasis Social History Use of substances other than those prescribed or required for medical reasons: Yes Substance Use Type: Heroin Substance Use Frequency: Daily Last Used Substance: Just Prior to Admission Advance Directives: No Advance Directives Information Provided: No Meds Allergies Allergy/AdvReac Type Severity Reaction Status Date / Time No Known Allergies Allergy Verified 04/17/23 09:58 Active Medications: Current Medications Enoxaparin Sodium (Enoxaparin Sodium 40 Mg/0.4 Ml Syringe) 40 mg SUBCUT Q24H HELEN Sodium Chloride (Ns) 1,000 mls @ 100 mls/hr IVCONT .Q10H HELEN Sodium Chloride (0.9 % Sodium Chloride Flush 3 Ml Syringe) 3 ml IVFLUSH QSHIFT [facility] Physical Exam 2 Vital Signs and Narrative: Vital Signs: Last Vital Signs Temp 98.5 F 04/17/23 15:30 Pulse 74 04/17/23 17:27 Resp 18 04/17/23 17:27 BP 163/97 H 04/17/23 17:27 Pulse Ox 99 04/17/23 17:27 O2 Del Method Room Air 04/17/23 17:27 BMI result Body Mass Index 35.1 General: AO X 3, no acute distress Resp: CTA bilateral, no accessory muscles used CVS: S1,S2,RRR GI: soft, non tender, non distended Neuro: motor grossly intact, alert Psych: appropriate affect, appropriate insight Results Labs 04/17/23 11:30 04/17/23 11:30 Labs: Laboratory Results - last 24 hr 04/17/23 04/17/23 11:30 16:50 MCV 80.4 MCH 28.5 MCHC 35.5 RDW 12.7 Plt Count 242 MPV 10.2 Immature Gran % (Auto) 0.3 Neut % (Auto) 66.4 Lymph % (Auto) 22.7 [place] % (Auto) 9.1 Eos % (Auto) 0.8 Baso % (Auto) 0.7 Lymph # (Auto) 1.7 [place] # (Auto) 0.7 Eos # (Auto) 0.1 Baso # (Auto) 0.1 Abs Immat Gran (auto) 0.02 Absolute Neuts (auto) 5.1 Absolute Nucleated RBC 0.000 Nucleated RBC % (auto) 0.0 Anion Gap 9 L Estim Creat Clear Calc 139.4 Estimated GFR > 60 Random Glucose 139 H Calcium 12.5 H* Phosphorus 1.4 L Magnesium 2.3 Total Bilirubin 0.7 AST 16 ALT 25 Alkaline Phosphatase 126 H Total Protein 7.2 Albumin 4.5 Lipase 15 TSH 0.25 L PTH Intact 450.6 H Assessment and Plan (1) Hypercalcemia: Status: Acute Plan 42M PMH mood disorder, opiate dependence, nephrolithiasis presented with 2-3 weeks of feeling unwell Diffuse body aches and dehydration due to hypercalcemia due to primary hyperparathyroidism IV fluids, monitor labs, Nephrology eval Low TSH Follow-up reflex T4 Opiate dependent Addiction eval Obesity Weight loss recommended DVT prophylaxis with Lovenox Full Code Patient with hypercalcemia causing significant fluid deficit and requiring IV hydration with close monitoring, therefore, expected to require at least 2 midnights inpatient. Quality Stroke Does the patient have a stroke diagnosis?: No VTE Prior VTE?: No VTE Risk Level:: Medical - moderate - high VTE Device Contraindication: Treatment Not Indicated VTE Drug Contraindication: N/A - Med Ordered
--- NOTE | 2023-04-17 18:01 | PHA.MEDREC ---
Pharmacy Consult ? Medication Reconciliation Pharmacy has completed the medication reconciliation Spoke to patient. Patient is on a suboxone taper at the moment. Patient is on day 3. Taper from day 3 to day 9 goes as follows; Current Taper: Patient is on day 3 currently. Day 3: 1mg= 1/2 film of 2 mg film, take 1 hour before methadone dose. Day 4: Take 1/2 film of the 2 mg film one hour before methadone and take second dose @5pm. Day 5: Take 2 mg film in the morning before methadone and another film @5pm. Day 6: take 2 of the 2 mg films 1 hour before methadone. Day 7: take 2 of the 2 mg films in the morning and at 5pm. Day 8: start 8 mg film and take once in the morning (last dose of methadone). Day 9: take 8 mg film twice, once in the morning and once at 5pm..
[2023-04-17 18:02] LABS: T4 Thyroxine 9.3 ug/dL (4.5-12.0)
[2023-04-17] MEDS: 0.9 % Sodium Chloride 1,000 ML 100 ML IVCONT (19:23)
--- NOTE | 2023-04-17 20:28 | PM.EVENT ---
Event Note Date of Service: 04/17/23 Event Note: Thank you for the consult. Hypercalcemia due to primary hyperparathyroidism. On IV NS. Get a Sestamibi scan please. Until surgery, could start on Sensipar 30 mg daily. Detailed consult note to follow. Luis Franco MD
[2023-04-17] MEDS: Melatonin 3 MG TABLET 6 MG PO (21:59)
[2023-04-18] MEDS: 0.9 % Sodium Chloride 1,000 ML 100 ML IVCONT ×2 (05:04→13:43)
[2023-04-18 05:52] LABS: Hematocrit 41.9 % (42.0-52.0); Hemoglobin 14.8 g/dl (14.0-18.0); Mean Corpuscular HGB Conc 35.3 g/dl (31.0-36.0); Mean Corpuscular Hemoglobin 28.6 pg (27.0-33.0); Mean Corpuscular Volume 80.9 fL (80.0-98.0); Mean Platelet Volume 10.4 fL (9.4-12.4); Platelet Count 241 X10*3/uL (160-400); Red Blood Count 5.18 X10*6/uL (4.60-5.80); Red Cell Distribution Width 12.7 % (11.0-16.0); White Blood Count 9.2 X10*3/uL (4.8-10.8)
[2023-04-18 06:08] LABS: Alanine Aminotransferase 20 U/L (0-40); Albumin Level 4.1 g/dL (3.5-5.0); Alkaline Phosphatase 118 U/L (39-117); Anion Gap 9 (12-20); Aspartate Amino Transferase 13 U/L (5-37); Bilirubin Direct 0.3 mg/dL (0.0-0.5); Bilirubin Total 0.7 mg/dL (0.0-1.0); Blood Urea Nitrogen 10 mg/dL (9-16); Calcium 11.5 mg/dL (8.4-10.2); Carbon Dioxide 24 mmol/L (22-29); Chloride 110 mmol/L (96-108); Creatinine Clr Calc Pharmacy 164.4; Estimated Glomerular Filt Rate > 60; Glucose Fasting 92 mg/dL (60-99); Magnesium 2.1 mg/dL (1.6-2.6); Potassium 3.4 mmol/L (3.3-5.1); Sodium 140 mmol/L (135-145); Total Protein 6.5 g/dL (6.5-8.0)
[2023-04-18 07:24] VITALS: BP 158/95; PULSE 63; RESP 18; TEMP 36.4; O2SAT 96
--- NOTE | 2023-04-18 08:23 | MHC.CM.PN ---
Patient is from home with parter and children. Functionally independent. No medical equipment. PCP Zeke Crow MD HCP : CM provided education and offered assistance. Patient will consider completing prior to dc. DP: Goal is home self care, family to transport. Does not anticipate needing services. CM will continue to follow.
[2023-04-18] MEDS: Buprenorphine/Naloxone 8/2 mg FILM 1 FILM BUCCAL (08:40)
--- NOTE | 2023-04-18 08:53 | P.PNIM_ITS ---
Subjective Subjective Date of Service: 04/18/23 Interval History: body cramps Physical Exam 2 Vital Signs: Vital Signs: Last Vital Signs Temp 97.6 F 04/18/23 07:24 Pulse 63 04/18/23 07:24 Resp 18 04/18/23 07:24 BP 158/95 H 04/18/23 07:24 Pulse Ox 96 04/18/23 07:24 O2 Del Method Room Air 04/18/23 07:24 BMI result Body Mass Index 35.1 General: AO X 3, no acute distress Resp: CTA bilateral, no accessory muscles used CVS: S1,S2,RRR GI: soft, non tender, non distended Neuro: motor grossly intact, alert Psych: appropriate affect, appropriate insight Objective Data Active Medications Acetaminophen (Acetaminophen 325 Mg Tablet) 650 mg PO Q6H PRN PRN Reason: mpain Buprenorphine/Naloxone (Buprenorphine/Naloxone 8/2 Mg Film) 1 film BUCCAL DAILY [facility] Last Admin: 04/18/23 08:40 Dose: 1 film Documented By: BEHZAD Clonidine HCl (Clonidine Hcl 0.1 Mg Tablet) 0.1 mg PO BID PRN; Protocol PRN Reason: Withdrawal Symptoms Enoxaparin Sodium (Enoxaparin Sodium 40 Mg/0.4 Ml Syringe) 40 mg SUBCUT Q24H [facility] Last Admin: 04/18/23 07:51 Dose: Not Given Documented By: BEHZAD Non-Admin Reason: Patient Refused Hydroxyzine HCl (Hydroxyzine Hcl 25 Mg Tablet) 25 mg PO BID PRN PRN Reason: anxiety Sodium Chloride (Ns) 1,000 mls @ 100 mls/hr IVCONT .Q10H HELEN Last Admin: 04/18/23 05:04 Dose: 100 mls/hr Documented By: JUAN Melatonin (Melatonin 3 Mg Tablet) 6 mg PO BEDTIME PRN PRN Reason: Insomnia Last Admin: 04/17/23 21:59 Dose: 6 mg Documented By: CLIFFORD Ondansetron HCl (Ondansetron Hcl 4 Mg/2 Ml Vial) 4 mg IVPUSH Q8H PRN PRN Reason: Nausea Potassium Phos/Sodium Phos (Sodium,Potassium Phosphates Powd.Pack) 1 packet PO ONCE ONE Stop: 04/18/23 08:51 Sodium Chloride (0.9 % Sodium Chloride Flush 3 Ml Syringe) 3 ml IVFLUSH QSHIFT [facility] Last Admin: 04/18/23 07:51 Dose: Not Given Documented By: BEHZAD Non-Admin Reason: IV Running Labs 04/18/23 05:13 04/18/23 05:13 Labs: Laboratory Results - last 24 hr 04/17/23 04/17/23 04/18/23 11:30 16:50 05:13 MCV 80.4 80.9 MCH 28.5 28.6 MCHC 35.5 35.3 RDW 12.7 12.7 Plt Count 242 241 MPV 10.2 10.4 Immature Gran % (Auto) 0.3 Neut % (Auto) 66.4 Lymph % (Auto) 22.7 [place] % (Auto) 9.1 Eos % (Auto) 0.8 Baso % (Auto) 0.7 Lymph # (Auto) 1.7 [place] # (Auto) 0.7 Eos # (Auto) 0.1 Baso # (Auto) 0.1 Abs Immat Gran (auto) 0.02 Absolute Neuts (auto) 5.1 Absolute Nucleated RBC 0.000 0.000 Nucleated RBC % (auto) 0.0 0.0 Anion Gap 9 L 9 L Estim Creat Clear Calc 139.4 164.4 Estimated GFR > 60 > 60 Random Glucose 139 H Fasting Glucose 92 Calcium 12.5 H* 11.5 H D Phosphorus 1.4 L 2.0 L Magnesium 2.3 2.1 Total Bilirubin 0.7 0.7 Direct Bilirubin 0.3 AST 16 13 ALT 25 20 Alkaline Phosphatase 126 H 118 H Total Protein 7.2 6.5 Albumin 4.5 4.1 Lipase 15 TSH 0.25 L Thyroxine (T4) 9.3 PTH Intact 450.6 H Assessment and Plan (1) Hypercalcemia: Status: Acute Plan 42M PMH mood disorder, opiate dependence, nephrolithiasis presented with 2-3 weeks of feeling unwell Diffuse body aches and dehydration due to hypercalcemia due to primary hyperparathyroidism IV fluids, monitor labs, Nephrology appreciated start sensipar 30mg outpatient sestamibi and follow up hypophosphatemia replace, monitor Opiate dependent Addiction eval, suboxone Obesity Weight loss recommended DVT prophylaxis with Lovenox Full Code reason for continued hospitalization:hypercalcemia Quality Stroke Does the patient have a stroke diagnosis?: No VTE Prior VTE?: No VTE Risk Level:: Medical - moderate - high VTE Device Contraindication: Treatment Not Indicated VTE Drug Contraindication: N/A - Med Ordered
[2023-04-18] MEDS: Sodium,Potassium Phosphates POWD.PACK 1 PACKET PO (09:56)
[2023-04-18] MEDS: Cinacalcet HCl 30 MG TABLET PO (09:58)
[2023-04-18] MEDS: cloNIDine HCL 0.1 MG TABLET PO ×2 (09:59→19:59)
[2023-04-18] MEDS: hydrOXYzine HCL 25 MG TABLET PO (09:59)
[2023-04-18] MEDS: Buprenorphine/Naloxone 12/3 mg FILM 2 FILM SUBLINGUAL (11:13)
[2023-04-18 11:56] VITALS: PULSE 105; RESP 20; TEMP 36.4; O2SAT 98
[2023-04-18] MEDS: Morphine Sulfate 4 MG/ML CARTRIDGE IVPUSH (12:04)
[2023-04-18] MEDS: HYDROmorphone HCl 1 MG/ML SYRINGE 2 MG IVPUSH ×3 (12:44→18:46)
[2023-04-18] MEDS: HYDROmorphone HCl 2 MG/ML VIAL IVPUSH (13:29)
[2023-04-18] MEDS: TiZANidine HCL 4 MG TABLET 8 MG PO (14:11)
[2023-04-18] MEDS: diazePAM 10 MG/2 ML CARTRIDGE 5 MG IVPUSH (15:21)
[2023-04-18 15:42] VITALS: BP 142/79; PULSE 70; RESP 18; TEMP 36.3; O2SAT 95
--- NOTE | 2023-04-18 15:48 | MHC.RECOVRN ---
Met with pt in 387 after consult placed to Addiction Medicine for OUD. Pt had presented to the ED reporting n/v/d, feeling dehydrated, withdrawal symptoms. Upon evaluation, pt admitted for hypercalcemia. Pt is currently a pt of the [facility] and is inducting Suboxone via microdosing. Today, pt should have received 1 mg Suboxone. Pt actually received 4 mg Suboxone at 0840. Met with pt at 0945, pt laying in bed, awake, alert, engages in conversation. Pt reports last opioid use 04/17 at 0630, one bundle, IN. Pt reports inability to sleep and muscle cramping. Encouraged pt to utilize prn medications including clonidine and hydroxyzine. At about 1030, t/w was notified by pts RN that withdrawal symptoms had suddenly worsened. Pt was experiencing rhinorrhea, piloerection, anxiety, restlessness, sweating. Discussed with Nancy Pearce APRN, as well as hospitalist, pt to receive additional Suboxone. Pt received 24 mg Suboxone at 1113. 1145- met with pt to assess withdrawal symptoms Pt experiencing extreme restlessness and anxiety, completely unable to stay still. Discussed with and hospitalist, pt to receive morphine. Pt received 4 mg morphine at 1204. 1230-no improvement in symptoms Received 2 mg dilaudid at 1244. 1305-no improvement in symptoms Received 2 mg dilaudid at 1329. Met with pt at 1357 to assess symptoms, pt reports feeling slightly better, however, continues to be extremely restless and unable to stay still. Discussed with . Pt received 5 mg valium at 1521. Will continue to follow.
[2023-04-18] MEDS: oxyCODONE HCl Immed Release 15 MG TABLET PO (19:19)
[2023-04-18 19:54] VITALS: BP 153/79; PULSE 59; RESP 18; TEMP 36.6; O2SAT 99
[2023-04-19] VITALS: BP 163/99; PULSE 67; RESP 16; TEMP 36.8; O2SAT 97
[2023-04-19] MEDS: 0.9 % Sodium Chloride 1,000 ML 100 ML IVCONT ×3 (01:17→21:09)
[2023-04-19 06:47] LABS: Alanine Aminotransferase 19 U/L (0-40); Albumin Level 4.2 g/dL (3.5-5.0); Alkaline Phosphatase 120 U/L (39-117); Anion Gap 13 (12-20); Aspartate Amino Transferase 15 U/L (5-37); Bilirubin Direct 0.4 mg/dL (0.0-0.5); Bilirubin Total 0.9 mg/dL (0.0-1.0); Blood Urea Nitrogen 9 mg/dL (9-16); Calcium 11.8 mg/dL (8.4-10.2); Carbon Dioxide 22 mmol/L (22-29); Chloride 109 mmol/L (96-108); Creatinine Clr Calc Pharmacy 150.9; Estimated Glomerular Filt Rate > 60; Glucose Fasting 92 mg/dL (60-99); Phosphorus 2.3 mg/dL (2.7-4.5); Potassium 3.2 mmol/L (3.3-5.1); Sodium 141 mmol/L (135-145); Total Protein 6.7 g/dL (6.5-8.0)
[2023-04-19 08:00] VITALS: BP 129/89; PULSE 64; RESP 18; TEMP 36.3; O2SAT 98
[2023-04-19] MEDS: Cinacalcet HCl 30 MG TABLET PO (08:47)
[2023-04-19] MEDS: Sodium,Potassium Phosphates POWD.PACK 2 PACKET PO (08:47)
--- NOTE | 2023-04-19 09:11 | P.PNIM_ITS ---
Subjective Subjective Date of Service: 04/19/23 Interval History: withdrawal symptoms improving Physical Exam 2 Vital Signs: Vital Signs: Last Vital Signs Temp 97.4 F 04/19/23 08:00 Pulse 64 04/19/23 08:00 Resp 18 04/19/23 08:00 BP 129/89 04/19/23 08:00 Pulse Ox 98 04/19/23 08:00 O2 Del Method Room Air 04/19/23 08:00 BMI result Body Mass Index 35.1 General: AO X 3, no acute distress Resp: CTA bilateral, no accessory muscles used CVS: S1,S2,RRR GI: soft, non tender, non distended Neuro: motor grossly intact, alert Psych: appropriate affect, appropriate insight Objective Data Active Medications Acetaminophen (Acetaminophen 325 Mg Tablet) 650 mg PO Q6H PRN PRN Reason: mpain Cinacalcet (Cinacalcet Hcl 30 Mg Tablet) 30 mg PO DAILY [facility] Last Admin: 04/19/23 08:47 Dose: 30 mg Documented By: BEHZAD Clonidine HCl (Clonidine Hcl 0.1 Mg Tablet) 0.1 mg PO QID PRN; Protocol PRN Reason: Withdrawal Symptoms Last Admin: 04/18/23 19:59 Dose: 0.1 mg Documented By: CRYSTAL Enoxaparin Sodium (Enoxaparin Sodium 40 Mg/0.4 Ml Syringe) 40 mg SUBCUT Q24H [facility] Last Admin: 04/19/23 08:31 Dose: Not Given Documented By: BEHZAD Non-Admin Reason: Patient Refused Hydromorphone HCl (Hydromorphone Hcl 1 Mg/Ml Syringe) 2 mg IVPUSH Q2H PRN; Protocol PRN Reason: withdrawal Last Admin: 04/18/23 18:46 Dose: 2 mg Documented By: BEHZAD Hydroxyzine HCl (Hydroxyzine Hcl 25 Mg Tablet) 25 mg PO QID PRN PRN Reason: anxiety Sodium Chloride (Ns) 1,000 mls @ 100 mls/hr IVCONT .Q10H [facility] Last Admin: 04/19/23 01:17 Dose: 100 mls/hr Documented By: JUAN Melatonin (Melatonin 3 Mg Tablet) 6 mg PO BEDTIME PRN PRN Reason: Insomnia Last Admin: 04/17/23 21:59 Dose: 6 mg Documented By: CLIFFORD Morphine Sulfate (Morphine Sulfate 4 Mg/Ml Cartridge) 4 mg IVPUSH Q3H PRN; Protocol PRN Reason: withdrawal Last Admin: 04/18/23 12:04 Dose: 4 mg Documented By: BEHZAD Ondansetron HCl (Ondansetron Hcl 4 Mg/2 Ml Vial) 4 mg IVPUSH Q8H PRN PRN Reason: Nausea Oxycodone HCl (Oxycodone Hcl Immed Release 15 Mg Tablet) 15 mg PO Q3H [facility] Last Admin: 04/19/23 08:27 Dose: Not Given Documented By: BEHZAD Non-Admin Reason: Patient Refused Sodium Chloride (0.9 % Sodium Chloride Flush 3 Ml Syringe) 3 ml IVFLUSH QSHIFT [facility] Last Admin: 04/19/23 07:39 Dose: Not Given Documented By: BEHZAD Non-Admin Reason: IV Running Labs 04/18/23 05:13 04/19/23 05:18 Labs: Laboratory Results - last 24 hr 04/19/23 05:18 Hold Purple Top SEE NOTE Anion Gap 13 Estim Creat Clear Calc 150.9 Estimated GFR > 60 Fasting Glucose 92 Calcium 11.8 H Phosphorus 2.3 L Total Bilirubin 0.9 Direct Bilirubin 0.4 AST 15 ALT 19 Alkaline Phosphatase 120 H Total Protein 6.7 Albumin 4.2 Assessment and Plan (1) Hypercalcemia: Status: Acute Plan 42M PMH mood disorder, opiate dependence, nephrolithiasis presented with 2-3 weeks of feeling unwell Diffuse body aches and dehydration due to hypercalcemia due to primary hyperparathyroidism IV fluids, monitor labs, Nephrology appreciated started sensipar 30mg outpatient sestamibi and follow up hypophosphatemia replace, monitor Opiate dependence with percipitated withdrawl Addiction team following Obesity Weight loss recommended DVT prophylaxis with Lovenox Full Code reason for continued hospitalization:hypercalcemia Quality Stroke Does the patient have a stroke diagnosis?: No VTE Prior VTE?: No VTE Risk Level:: Medical - moderate - high VTE Device Contraindication: Treatment Not Indicated VTE Drug Contraindication: N/A - Med Ordered
[2023-04-19 09:13] LABS: Triiodothyronine T3 Total 100 ng/dL (76-181)
[2023-04-19] MEDS: Loperamide HCl 2 MG CAPSULE PO (10:18)
[2023-04-19] MEDS: ondansetron HCL 4 MG/2 ML VIAL IVPUSH (12:53)
--- NOTE | 2023-04-19 13:35 | MHC.RECOVRN ---
Met with pt around 0900 to follow up after precipitated withdrawal yesterday. Pt sitting in bed, awake, alert, appears comfortable, easily engages in conversation, tearful at times. Pt reports feeling better than yesterday, did not receive opioids overnight. Pt experiencing nausea/loose stool, denies all other withdrawal symptoms. Pt adamantly declines further opioids. Discussed utilizing comfort medications, pt agreeable. Pt denies questions or concerns at this time.
[2023-04-19 14:18] VITALS: BP 161/100; PULSE 62; RESP 116; TEMP 37; O2SAT 99
[2023-04-19] MEDS: cloNIDine HCL 0.1 MG TABLET PO ×2 (14:23→21:10)
[2023-04-19 15:39] VITALS: BP 158/97; PULSE 78; RESP 18; TEMP 36.4; O2SAT 97
[2023-04-19] MEDS: TiZANidine HCL 4 MG TABLET 8 MG PO (17:05)
[2023-04-19] MEDS: hydrOXYzine HCL 25 MG TABLET PO (17:05)
[2023-04-19] MEDS: Acetaminophen 325 MG TABLET 650 MG PO (17:52)
[2023-04-19 23:49] VITALS: BP 154/80; PULSE 74; RESP 16; TEMP 36.1; O2SAT 98
[2023-04-20 05:49] LABS: Hematocrit 39.4 % (42.0-52.0); Mean Corpuscular HGB Conc 35.5 g/dl (31.0-36.0); Mean Corpuscular Hemoglobin 29.4 pg (27.0-33.0); Mean Corpuscular Volume 82.6 fL (80.0-98.0); Mean Platelet Volume 11.5 fL (9.4-12.4); Platelet Count 208 X10*3/uL (160-400); Red Blood Count 4.77 X10*6/uL (4.60-5.80); Red Cell Distribution Width 12.6 % (11.0-16.0); White Blood Count 8.5 X10*3/uL (4.8-10.8)
[2023-04-20 06:04] LABS: Alanine Aminotransferase 18 U/L (0-40); Albumin Level 3.8 g/dL (3.5-5.0); Alkaline Phosphatase 110 U/L (39-117); Anion Gap 11 (12-20); Aspartate Amino Transferase 18 U/L (5-37); Bilirubin Direct 0.2 mg/dL (0.0-0.5); Bilirubin Total 0.6 mg/dL (0.0-1.0); Blood Urea Nitrogen 10 mg/dL (9-16); Calcium 11.2 mg/dL (8.4-10.2); Carbon Dioxide 19 mmol/L (22-29); Chloride 113 mmol/L (96-108); Creatinine Clr Calc Pharmacy 164.4; Estimated Glomerular Filt Rate > 60; Glucose Fasting 99 mg/dL (60-99); Potassium 3.9 mmol/L (3.3-5.1); Sodium 139 mmol/L (135-145); Total Protein 6.3 g/dL (6.5-8.0)
[2023-04-20] MEDS: hydrOXYzine HCL 25 MG TABLET PO ×2 (06:09→18:36)
[2023-04-20] MEDS: cloNIDine HCL 0.1 MG TABLET PO ×2 (06:09→18:36)
[2023-04-20] MEDS: 0.9 % Sodium Chloride 1,000 ML 100 ML IVCONT (06:12)
[2023-04-20 07:06] VITALS: BP 132/72; PULSE 57; RESP 18; TEMP 37.1; O2SAT 97
[2023-04-20] MEDS: Cinacalcet HCl 30 MG TABLET PO (08:42)
[2023-04-20] MEDS: Enoxaparin Sodium 40 MG/0.4 ML SYRINGE SUBCUT (08:42)
[2023-04-20] MEDS: 0.9 % Sodium Chloride Flush 3 ML SYRINGE IVFLUSH (08:43)
[2023-04-20] MEDS: Lactated Ringers 1,000 ML 100 ML IVCONT ×2 (08:48→17:39)
--- NOTE | 2023-04-20 08:54 | HO.PM.IMPN ---
Subjective Subjective Date of Service: 04/20/23 Interval History: cramps, nausea and vomiting Physical Exam Vital Signs: Vital Signs: Last Vital Signs Temp 98.8 F 04/20/23 07:06 Pulse 57 04/20/23 07:06 Resp 18 04/20/23 07:06 BP 132/72 04/20/23 07:06 Pulse Ox 97 04/20/23 07:06 O2 Del Method Room Air 04/20/23 07:06 BMI result Body Mass Index 35.1 General: AO X 3, no acute distress Resp: CTA bilateral, no accessory muscles used CVS: S1,S2,RRR GI: soft, non tender, non distended Neuro: motor grossly intact, alert Psych: appropriate affect, appropriate insight Objective Data Active Medications Acetaminophen (Acetaminophen 325 Mg Tablet) 650 mg PO Q6H PRN PRN Reason: mpain Last Admin: 04/19/23 17:52 Dose: 650 mg Documented By: BEHZAD Cinacalcet (Cinacalcet Hcl 30 Mg Tablet) 30 mg PO DAILY [facility] Last Admin: 04/20/23 08:42 Dose: 30 mg Documented By: LIEN Clonidine HCl (Clonidine Hcl 0.1 Mg Tablet) 0.1 mg PO QID PRN; Protocol PRN Reason: Withdrawal Symptoms Last Admin: 04/20/23 06:09 Dose: 0.1 mg Documented By: CRYSTAL Enoxaparin Sodium (Enoxaparin Sodium 40 Mg/0.4 Ml Syringe) 40 mg SUBCUT Q24H [facility] Last Admin: 04/20/23 08:42 Dose: 40 mg Documented By: LIEN Hydromorphone HCl (Hydromorphone Hcl 1 Mg/Ml Syringe) 2 mg IVPUSH Q2H PRN; Protocol PRN Reason: withdrawal Last Admin: 04/18/23 18:46 Dose: 2 mg Documented By: BEHZAD Hydroxyzine HCl (Hydroxyzine Hcl 25 Mg Tablet) 25 mg PO QID PRN PRN Reason: anxiety Last Admin: 04/20/23 06:09 Dose: 25 mg Documented By: CRYSTAL Lactated Ringer's (Lr) 1,000 mls @ 100 mls/hr IVCONT .Q10H [facility] Last Admin: 04/20/23 08:48 Dose: 100 mls/hr Documented By: LIEN Loperamide HCl (Loperamide Hcl 2 Mg Capsule) 2 mg PO Q4H PRN PRN Reason: Diarrhea Last Admin: 04/19/23 10:18 Dose: 2 mg Documented By: BEHZAD Melatonin (Melatonin 3 Mg Tablet) 6 mg PO BEDTIME PRN PRN Reason: Insomnia Last Admin: 04/17/23 21:59 Dose: 6 mg Documented By: CLIFFORD Morphine Sulfate (Morphine Sulfate 4 Mg/Ml Cartridge) 4 mg IVPUSH Q3H PRN; Protocol PRN Reason: withdrawal Last Admin: 04/18/23 12:04 Dose: 4 mg Documented By: BEHZAD Ondansetron HCl (Ondansetron Hcl 4 Mg/2 Ml Vial) 4 mg IVPUSH Q8H PRN PRN Reason: Nausea Last Admin: 04/19/23 12:53 Dose: 4 mg Documented By: BEHZAD Oxycodone HCl (Oxycodone Hcl Immed Release 15 Mg Tablet) 15 mg PO Q3H [facility] Last Admin: 04/20/23 08:53 Dose: Not Given Documented By: LIEN Non-Admin Reason: Patient Refused Sodium Chloride (0.9 % Sodium Chloride Flush 3 Ml Syringe) 3 ml IVFLUSH [facility] Last Admin: 04/20/23 08:43 Dose: 3 ml Documented By: LIEN Labs 04/20/23 05:31 04/20/23 05:31 Labs: Laboratory Results - last 24 hr 04/17/23 04/20/23 07:10 05:31 MCV 82.6 MCH 29.4 MCHC 35.5 RDW 12.6 Plt Count 208 MPV 11.5 Absolute Nucleated RBC 0.000 Nucleated RBC % (auto) 0.0 Anion Gap 11 L Estim Creat Clear Calc 164.4 Estimated GFR > 60 Fasting Glucose 99 Calcium 11.2 H Total Bilirubin 0.6 Direct Bilirubin 0.2 AST 18 ALT 18 Alkaline Phosphatase 110 Total Protein 6.3 L Albumin 3.8 Total T3 100 Assessment and Plan (1) Hypercalcemia: Status: Acute Plan 42M PMH mood disorder, opiate dependence, nephrolithiasis presented with 2-3 weeks of feeling unwell Diffuse body aches and dehydration due to hypercalcemia due to primary hyperparathyroidism IV fluids - change to lr, monitor labs, Nephrology appreciated started sensipar 30mg outpatient sestamibi and follow up hypophosphatemia replace, monitor Opiate dependence with percipitated withdrawl Addiction team following Obesity Weight loss recommended DVT prophylaxis with Lovenox Full Code reason for continued hospitalization:hypercalcemia, withdrawal symptoms ongoing Quality Stroke Does the patient have a stroke diagnosis?: No VTE Prior VTE?: No VTE Risk Level:: Medical - moderate - high VTE Device Contraindication: Treatment Not Indicated VTE Drug Contraindication: N/A - Med Ordered
--- NOTE | 2023-04-20 10:43 | PM.CNNEP ---
History of Present Illness Reason for Consult Consult date: 04/20/23 Reason for consult: Hypercalcemia Chief Complaint Chief complaint: hypercalcemia History of Present Illness Narrative: 42M with mood disorder, opiate dependence, nephrolithiasis presented with 2-3 weeks of feeling unwell. Patient reports poor intake, body aches, dysphagia. has been having difficulty staying hydrated. went to opiate program after symptoms began and started on suboxone. symptoms ongoing. on 04/14/23 labs found to have hypercalcemia 12, with some signs of concentration. in ED calcium now 12.5, albumin 4.6, PTH 450.6, tsh 0.25. Review of Systems Constitutional: Denies anorexia, Denies fever(s) and Denies weakness Eyes: Denies blurry vision Cardiovascular: Denies no additional cardiovascular complaints and Denies dyspnea Respiratory: Reports no additional respiratory complaints, Reports cough and Denies dyspnea Gastrointestinal: Denies melena and Denies diarrhea Genitourinary: Denies hematuria Musculoskeletal: Denies tingling Skin/Breast: Denies rash Denies focal weakness, Denies tingling, Denies tremor(s) and Denies weakness PMFSH Past Medical History Medical History (Updated 04/17/23 @ 21:09 by Miranda Viera RN) Mood disorder Opiate addiction Nephrolithiasis Social History Social History Household Members: Children and Other Household Members Other:: girlfriend Housing: House Do you presently have visiting nurse or other home services: No Patient Tobacco Use Status: Never used Tobacco Use of substances other than those prescribed or required for medical reasons: Yes Substance Use Type: Heroin Substance Use Frequency: Daily Last Used Substance: Just Prior to Admission Last Used Substance Other:: today morning Currently Displaying Signs/Symptoms of Drug Intoxication Withdrawal: No Any prior treatment program specific to substance use: Yes Have you been hit, kicked, punched, or otherwise hurt by someone within the past year? If so, by whom?: No Do you feel safe in your current relationship?: Yes Is there a partner from a previous relationship who is making you feel unsafe now?: No Are you made to feel afraid or neglected: No Advance Directives: No Advance Directives Information Provided: No Do you have thoughts of harming others: None Do you have a plan to hurt others: No Plan Recently lost weight without trying: Yes How much weight loss: 24-33 pounds Eating poorly because of decreased appetite: Yes Nutrition screen score: 6 Nutrition Risks: No Nutritional Risk Poor oral hygiene: No service: No Meds Allergies Allergy/AdvReac Type Severity Reaction Status Date / Time No Known Allergies Allergy Verified 04/17/23 09:58 Active Medications: Current Medications Acetaminophen (Acetaminophen 325 Mg Tablet) 650 mg PO Q6H PRN PRN Reason: mpain Last Admin: 04/19/23 17:52 Dose: 650 mg Cinacalcet (Cinacalcet Hcl 30 Mg Tablet) 30 mg PO DAILY [facility] Last Admin: 04/20/23 08:42 Dose: 30 mg Clonidine HCl (Clonidine Hcl 0.1 Mg Tablet) 0.1 mg PO QID PRN; Protocol PRN Reason: Withdrawal Symptoms Last Admin: 04/20/23 06:09 Dose: 0.1 mg Enoxaparin Sodium (Enoxaparin Sodium 40 Mg/0.4 Ml Syringe) 40 mg SUBCUT Q24H [facility] Last Admin: 04/20/23 08:42 Dose: 40 mg Hydromorphone HCl (Hydromorphone Hcl 1 Mg/Ml Syringe) 2 mg IVPUSH Q2H PRN; Protocol PRN Reason: withdrawal Last Admin: 04/18/23 18:46 Dose: 2 mg Hydroxyzine HCl (Hydroxyzine Hcl 25 Mg Tablet) 25 mg PO QID PRN PRN Reason: anxiety Last Admin: 04/20/23 06:09 Dose: 25 mg Lactated Ringer's (Lr) 1,000 mls @ 100 mls/hr IVCONT .Q10H [facility] Last Admin: 04/20/23 08:48 Dose: 100 mls/hr Loperamide HCl (Loperamide Hcl 2 Mg Capsule) 2 mg PO Q4H PRN PRN Reason: Diarrhea Last Admin: 04/19/23 10:18 Dose: 2 mg Melatonin (Melatonin 3 Mg Tablet) 6 mg PO BEDTIME PRN PRN Reason: Insomnia Last Admin: 04/17/23 21:59 Dose: 6 mg Morphine Sulfate (Morphine Sulfate 4 Mg/Ml Cartridge) 4 mg IVPUSH Q3H PRN; Protocol PRN Reason: withdrawal Last Admin: 04/18/23 12:04 Dose: 4 mg Ondansetron HCl (Ondansetron Hcl 4 Mg/2 Ml Vial) 4 mg IVPUSH Q8H PRN PRN Reason: Nausea Last Admin: 04/19/23 12:53 Dose: 4 mg Oxycodone HCl (Oxycodone Hcl Immed Release 15 Mg Tablet) 15 mg PO Q3H [facility] Last Admin: 04/20/23 08:53 Dose: Not Given Sodium Chloride (0.9 % Sodium Chloride Flush 3 Ml Syringe) 3 ml IVFLUSH QSHIFT [facility] Last Admin: 04/20/23 08:43 Dose: 3 ml Home Medications Medication Instructions Recorded Confirmed Last Taken Type buprenorphine 2 mg-naloxone 0.5 mg 1 film buccal USEASDIRECTD 04/17/23 04/17/23 Unknown History sublingual film buprenorphine 8 mg-naloxone 2 mg 1 film buccal USEASDIRECTD 04/17/23 04/17/23 Unknown History sublingual film clonidine HCl 0.1 mg tablet 0.1 mg PO BID PRN Withdrawal 04/17/23 04/17/23 Unknown History Symptoms Physical Exam Vital Signs: Last Vital Signs Temp 98.8 F 04/20/23 07:06 Pulse 57 04/20/23 07:06 Resp 18 04/20/23 07:06 BP 132/72 04/20/23 07:06 Pulse Ox 97 04/20/23 07:06 O2 Del Method Room Air 04/20/23 07:06 BMI result Body Mass Index 35.1 Const General: comfortable Nutritional Appearance: well nourished Orientation/consciousness: patient oriented x3 HEENT Head: No normal to inspection Mouth: moist mucous membranes Neck Neck: Yes supple and Yes no JVD Resp Auscultation: clear to auscultation bilaterally, no rales and rub present Cardio Jugular venous distension: no JVD Palpation: no palpable S3 and no palpable S4 Heart sounds: no rubs GI Palpation (GI): Soft to palpation and nontender Percussion: No Fluid wave present General: Yes no CVA tenderness Back/Spine/Pelvis Back: no CVA tenderness Skin General skin exam: no rashes or lesions noted Neuro General: patient oriented x3 Extrem General: Yes no pedal edema and No clubbing Results Lab Results 04/20/23 05:31 04/20/23 05:31 Lab results: Chemistry 04/17/23 04/18/23 04/19/23 11:30 05:13 05:18 Sodium 141 140 141 Potassium 3.9 D 3.4 3.2 L Carbon Dioxide 22 BUN 10 10 9 Creatinine 0.92 0.78 0.85 Calcium 12.5 H* 11.5 H D 11.8 H Phosphorus 1.4 L 2.0 L 2.3 L 04/20/23 05:31 Sodium 139 Potassium 3.9 D Carbon Dioxide 19 L BUN 10 Creatinine 0.78 Calcium 11.2 H Phosphorus 2.0 L Hematology 04/17/23 04/18/23 04/20/23 11:30 05:13 05:31 WBC 7.6 9.2 8.5 Hgb 15.3 14.8 14.0 Plt Count 242 241 208 Assessment and Plan (1) Hypercalcemia: Status: Acute (2) Nephrolithiasis: Status: Acute Procedures Date of Service Date of Service: 04/20/23
--- NOTE | 2023-04-20 10:45 | PM.CNNEP ---
History of Present Illness Reason for Consult Consult date: 04/21/23 Chief Complaint Chief complaint: hypercalcemia History of Present Illness Narrative: 42M with mood disorder, opiate dependence, nephrolithiasis presented with 2-3 weeks of feeling unwell. Patient reports poor intake, body aches, dysphagia. has been having difficulty staying hydrated. went to opiate program after symptoms began and started on suboxone. symptoms ongoing. on 04/14/23 labs found to have hypercalcemia 12, with some signs of concentration. in ED calcium now 12.5, albumin 4.6, PTH 450.6, tsh 0.25. Review of Systems Constitutional: Denies anorexia, Denies fever(s) and Denies weakness Eyes: Denies blurry vision Cardiovascular: Denies no additional cardiovascular complaints and Denies dyspnea Respiratory: Reports no additional respiratory complaints, Reports cough and Denies dyspnea Gastrointestinal: Denies melena and Denies diarrhea Genitourinary: Denies hematuria Musculoskeletal: Denies tingling Skin/Breast: Denies rash Denies focal weakness, Denies tingling, Denies tremor(s) and Denies weakness PMF Past Medical History Medical History (Updated 04/17/23 @ 21:09 by Miranda Viera RN) Mood disorder Opiate addiction Nephrolithiasis Social History Social History Household Members: Children and Other Household Members Other:: girlfriend Housing: House Do you presently have visiting nurse or other home services: No Patient Tobacco Use Status: Never used Tobacco Use of substances other than those prescribed or required for medical reasons: Yes Substance Use Type: Heroin Substance Use Frequency: Daily Last Used Substance: Just Prior to Admission Last Used Substance Other:: today morning Currently Displaying Signs/Symptoms of Drug Intoxication Withdrawal: No Any prior treatment program specific to substance use: Yes Have you been hit, kicked, punched, or otherwise hurt by someone within the past year? If so, by whom?: No Do you feel safe in your current relationship?: Yes Is there a partner from a previous relationship who is making you feel unsafe now?: No Are you made to feel afraid or neglected: No Advance Directives: No Advance Directives Information Provided: No Do you have thoughts of harming others: None Do you have a plan to hurt others: No Plan Recently lost weight without trying: Yes How much weight loss: 24-33 pounds Eating poorly because of decreased appetite: Yes Nutrition screen score: 6 Nutrition Risks: No Nutritional Risk Poor oral hygiene: No service: No Meds Allergies Allergy/AdvReac Type Severity Reaction Status Date / Time No Known Allergies Allergy Verified 04/17/23 09:58 Active Medications: Current Medications Acetaminophen (Acetaminophen 325 Mg Tablet) 650 mg PO Q6H PRN PRN Reason: mpain Last Admin: 04/19/23 17:52 Dose: 650 mg Cinacalcet (Cinacalcet Hcl 30 Mg Tablet) 30 mg PO DAILY [facility] Last Admin: 04/20/23 08:42 Dose: 30 mg Clonidine HCl (Clonidine Hcl 0.1 Mg Tablet) 0.1 mg PO QID PRN; Protocol PRN Reason: Withdrawal Symptoms Last Admin: 04/20/23 06:09 Dose: 0.1 mg Enoxaparin Sodium (Enoxaparin Sodium 40 Mg/0.4 Ml Syringe) 40 mg SUBCUT Q24H [facility] Last Admin: 04/20/23 08:42 Dose: 40 mg Hydromorphone HCl (Hydromorphone Hcl 1 Mg/Ml Syringe) 2 mg IVPUSH Q2H PRN; Protocol PRN Reason: withdrawal Last Admin: 04/18/23 18:46 Dose: 2 mg Hydroxyzine HCl (Hydroxyzine Hcl 25 Mg Tablet) 25 mg PO QID PRN PRN Reason: anxiety Last Admin: 04/20/23 06:09 Dose: 25 mg Lactated Ringer's (Lr) 1,000 mls @ 100 mls/hr IVCONT .Q10H [facility] Last Admin: 04/20/23 08:48 Dose: 100 mls/hr Loperamide HCl (Loperamide Hcl 2 Mg Capsule) 2 mg PO Q4H PRN PRN Reason: Diarrhea Last Admin: 04/19/23 10:18 Dose: 2 mg Melatonin (Melatonin 3 Mg Tablet) 6 mg PO BEDTIME PRN PRN Reason: Insomnia Last Admin: 04/17/23 21:59 Dose: 6 mg Morphine Sulfate (Morphine Sulfate 4 Mg/Ml Cartridge) 4 mg IVPUSH Q3H PRN; Protocol PRN Reason: withdrawal Last Admin: 04/18/23 12:04 Dose: 4 mg Ondansetron HCl (Ondansetron Hcl 4 Mg/2 Ml Vial) 4 mg IVPUSH Q8H PRN PRN Reason: Nausea Last Admin: 04/19/23 12:53 Dose: 4 mg Oxycodone HCl (Oxycodone Hcl Immed Release 15 Mg Tablet) 15 mg PO Q3H [facility] Last Admin: 04/20/23 08:53 Dose: Not Given Sodium Chloride (0.9 % Sodium Chloride Flush 3 Ml Syringe) 3 ml IVFLUSH QSHIFT [facility] Last Admin: 04/20/23 08:43 Dose: 3 ml Home Medications Medication Instructions Recorded Confirmed Last Taken Type buprenorphine 2 mg-naloxone 0.5 mg 1 film buccal USEASDIRECTD 04/17/23 04/17/23 Unknown History sublingual film buprenorphine 8 mg-naloxone 2 mg 1 film buccal USEASDIRECTD 04/17/23 04/17/23 Unknown History sublingual film clonidine HCl 0.1 mg tablet 0.1 mg PO BID PRN Withdrawal 04/17/23 04/17/23 Unknown History Symptoms Physical Exam Vital Signs: Last Vital Signs Temp 98.8 F 04/20/23 07:06 Pulse 57 04/20/23 07:06 Resp 18 04/20/23 07:06 BP 132/72 04/20/23 07:06 Pulse Ox 97 04/20/23 07:06 O2 Del Method Room Air 04/20/23 07:06 BMI result Body Mass Index 35.1 Const General: comfortable Nutritional Appearance: well nourished Orientation/consciousness: patient oriented x3 HEENT Head: No normal to inspection Mouth: moist mucous membranes Neck Neck: Yes supple and Yes no JVD Resp Auscultation: clear to auscultation bilaterally, no rales and rub present Cardio Jugular venous distension: no JVD Palpation: no palpable S3 and no palpable S4 Heart sounds: no rubs GI Palpation (GI): Soft to palpation and nontender Percussion: No Fluid wave present General: Yes no CVA tenderness Back/Spine/Pelvis Back: no CVA tenderness Skin General skin exam: no rashes or lesions noted Neuro General: patient oriented x3 Extrem General: Yes no pedal edema and No clubbing Results Lab Results 04/21/23 05:36 04/21/23 05:36 Lab results: Chemistry 04/17/23 04/18/23 04/19/23 11:30 05:13 05:18 Sodium 141 140 141 Potassium 3.9 D 3.4 3.2 L Carbon Dioxide 24 22 BUN 10 10 9 Creatinine 0.92 0.78 0.85 Calcium 12.5 H* 11.5 H D 11.8 H Phosphorus 1.4 L 2.0 L 2.3 L 04/20/23 05:31 Sodium 139 Potassium 3.9 D Carbon Dioxide 19 L BUN 10 Creatinine 0.78 Calcium 11.2 H Phosphorus 2.0 L Hematology 04/17/23 04/18/23 04/20/23 11:30 05:13 05:31 WBC 7.6 9.2 8.5 Hgb 15.3 14.8 14.0 Plt Count 242 241 208 Assessment and Plan (1) Hypercalcemia: Status: Acute Plan Middle aged man with Hypercalcemia due tto primary hyperparathyroidism Suggest IV Hydration Sensipar 30 mcg QD Parathyroid scan- can bw done as out patient If Ca is < 11, can be dischraged and will follow as out pt Procedures Date of Service Date of Service: 04/21/23
--- NOTE | 2023-04-20 11:32 | MHC.CLN ---
NUTRITION CONSULT FOR REPORTED 30# WEIGHT LOSS. VISITED WITH PATIENT. STATED THAT LOST 30# IN ONE WEEK AND WAS IN FREAK OUT MODE . 30# WEIGHT LOSS X ONE WEEK UNLIKELY. NO WEIGHT HX VIEWED. PATIENT ADM FOR HEROIN DETOX. CURRENT INTAKE 100%. NO NEW NUTRITION INTERVENTIONS.
--- NOTE | 2023-04-20 12:27 | MHC.CM.PN ---
Per MD rounds no discharge today. Patient continues with s/s of WD. He has been seen by the recovery nurse. DP home self care with community resource information provided by the Recovery nurse. A family family member will provide transportation home.
[2023-04-20 16:00] VITALS: BP 128/92; PULSE 66; RESP 18; TEMP 36.4; O2SAT 98
[2023-04-20] MEDS: traZODone HCL 50 MG TABLET PO (20:02)
[2023-04-20 23:47] VITALS: BP 146/90; PULSE 82; RESP 16; TEMP 36.2; O2SAT 99
[2023-04-21] MEDS: LORazepam 1 MG TABLET PO (01:15)
[2023-04-21 05:47] LABS: Hematocrit 40.9 % (42.0-52.0); Hemoglobin 14.4 g/dl (14.0-18.0); Mean Corpuscular HGB Conc 35.2 g/dl (31.0-36.0); Mean Corpuscular Hemoglobin 28.5 pg (27.0-33.0); Mean Corpuscular Volume 80.8 fL (80.0-98.0); Mean Platelet Volume 10.4 fL (9.4-12.4); Platelet Count 227 X10*3/uL (160-400); Red Blood Count 5.06 X10*6/uL (4.60-5.80); Red Cell Distribution Width 12.6 % (11.0-16.0); White Blood Count 9.5 X10*3/uL (4.8-10.8)
[2023-04-21] MEDS: Lactated Ringers 1,000 ML 100 ML IVCONT ×2 (06:01→15:32)
[2023-04-21 06:13] LABS: Alanine Aminotransferase 17 U/L (0-40); Albumin Level 4.1 g/dL (3.5-5.0); Alkaline Phosphatase 110 U/L (39-117); Anion Gap 9 (12-20); Aspartate Amino Transferase 14 U/L (5-37); Bilirubin Direct 0.2 mg/dL (0.0-0.5); Bilirubin Total 0.5 mg/dL (0.0-1.0); Blood Urea Nitrogen 9 mg/dL (9-16); Calcium 11.6 mg/dL (8.4-10.2); Carbon Dioxide 26 mmol/L (22-29); Chloride 110 mmol/L (96-108); Creatinine Clr Calc Pharmacy 149.1; Estimated Glomerular Filt Rate > 60; Glucose Fasting 98 mg/dL (60-99); Phosphorus 1.9 mg/dL (2.7-4.5); Potassium 3.1 mmol/L (3.3-5.1); Sodium 142 mmol/L (135-145); Total Protein 6.5 g/dL (6.5-8.0)
[2023-04-21 07:15] VITALS: BP 149/94; PULSE 81; RESP 16; TEMP 36.4; O2SAT 96
[2023-04-21] MEDS: Sodium,Potassium Phosphates POWD.PACK 2 PACKET PO (09:03)
[2023-04-21] MEDS: Enoxaparin Sodium 40 MG/0.4 ML SYRINGE SUBCUT (09:05)
[2023-04-21] MEDS: Cinacalcet HCl 30 MG TABLET PO ×2 (09:12→17:37)
--- NOTE | 2023-04-21 09:37 | P.PNIM_ITS ---
Subjective Subjective Date of Service: 04/21/23 Interval History: continues to feel withdrawal, dehydration, cramps Physical Exam 2 Vital Signs: Vital Signs: Last Vital Signs Temp 97.5 F 04/21/23 07:15 Pulse 81 04/21/23 07:15 Resp 16 04/21/23 07:15 BP 149/94 H 04/21/23 07:15 Pulse Ox 96 04/21/23 07:15 O2 Del Method Room Air 04/21/23 07:15 BMI result Body Mass Index 35.1 Const: General: comfortable Nutritional Appearance: well nourished O rientation/consciousness: patient oriented x3 HEENT: Head: No normal to inspection Mouth: moist mucous membranes Neck: Neck: Yes supple and Yes no JVD Resp: Auscultation: clear to auscultation bilaterally, no rales and rub present Cardio: Jugular venous distension: no JVD Palpation: no palpable S3 and no palpable S4 Heart sounds: no rubs GI: Palpation (GI): Soft to palpation and nontender Percussion: No Fluid wave present : General: Yes no CVA tenderness Back/Spine/Pelvis: Back: no CVA tenderness Skin: General skin exam: no rashes or lesions noted Neuro: General: patient oriented x3 Extrem: General: Yes no pedal edema and No clubbing Objective Data Active Medications Acetaminophen (Acetaminophen 325 Mg Tablet) 650 mg PO Q6H PRN PRN Reason: mpain Last Admin: 04/19/23 17:52 Dose: 650 mg Documented By: BEHZAD Cinacalcet (Cinacalcet Hcl 30 Mg Tablet) 30 mg PO DAILY [facility] Last Admin: 04/21/23 09:12 Dose: 30 mg Documented By: MATTHIAS Clonidine HCl (Clonidine Hcl 0.1 Mg Tablet) 0.1 mg PO QID PRN; Protocol PRN Reason: Withdrawal Symptoms Last Admin: 04/20/23 18:36 Dose: 0.1 mg Documented By: SHUBHAM Enoxaparin Sodium (Enoxaparin Sodium 40 Mg/0.4 Ml Syringe) 40 mg SUBCUT Q24H [facility] Last Admin: 04/21/23 09:05 Dose: 40 mg Documented By: MATTHIAS Hydromorphone HCl (Hydromorphone Hcl 1 Mg/Ml Syringe) 2 mg IVPUSH Q2H PRN; Protocol PRN Reason: withdrawal Last Admin: 04/18/23 18:46 Dose: 2 mg Documented By: BEHZAD Hydroxyzine HCl (Hydroxyzine Hcl 25 Mg Tablet) 25 mg PO QID PRN PRN Reason: anxiety Last Admin: 04/20/23 18:36 Dose: 25 mg Documented By: SHUBHAM Lactated Ringer's (Lr) 1,000 mls @ 100 mls/hr IVCONT .Q10H [facility] Last Admin: 04/21/23 06:01 Dose: 100 mls/hr Documented By: ANTSHANNAN Loperamide HCl (Loperamide Hcl 2 Mg Capsule) 2 mg PO Q4H PRN PRN Reason: Diarrhea Last Admin: 04/19/23 10:18 Dose: 2 mg Documented By: BEHZAD Melatonin (Melatonin 3 Mg Tablet) 6 mg PO BEDTIME PRN PRN Reason: Insomnia Last Admin: 04/17/23 21:59 Dose: 6 mg Documented By: CLIFFORD Morphine Sulfate (Morphine Sulfate 4 Mg/Ml Cartridge) 4 mg IVPUSH Q3H PRN; Protocol PRN Reason: withdrawal Last Admin: 04/18/23 12:04 Dose: 4 mg Documented By: BEHZAD Ondansetron HCl (Ondansetron Hcl 4 Mg/2 Ml Vial) 4 mg IVPUSH Q8H PRN PRN Reason: Nausea Last Admin: 04/19/23 12:53 Dose: 4 mg Documented By: BEHZAD Oxycodone HCl (Oxycodone Hcl Immed Release 15 Mg Tablet) 15 mg PO Q3H [facility] Last Admin: 04/21/23 09:17 Dose: Not Given Documented By: MATTHIAS Non-Admin Reason: Patient Refused Sodium Chloride (0.9 % Sodium Chloride Flush 3 Ml Syringe) 3 ml IVFLUSH QSHIFT [facility] Last Admin: 04/21/23 09:06 Dose: Not Given Documented By: MATTHIAS Non-Admin Reason: IV Running Trazodone HCl (Trazodone Hcl 50 Mg Tablet) 50 mg PO BEDTIME [facility] Last Admin: 04/20/23 20:02 Dose: 50 mg Documented By: SHUBHAM Labs 04/21/23 05:36 04/21/23 05:36 Labs: Laboratory Results - last 24 hr 04/21/23 05:36 MCV 80.8 MCH 28.5 MCHC 35.2 RDW 12.6 Plt Count 227 MPV 10.4 Absolute Nucleated RBC 0.000 Nucleated RBC % (auto) 0.0 Anion Gap 9 L Estim Creat Clear Calc 149.1 Estimated GFR > 60 Fasting Glucose 98 Calcium 11.6 H Phosphorus 1.9 L Total Bilirubin 0.5 Direct Bilirubin 0.2 AST 14 ALT 17 Alkaline Phosphatase 110 Total Protein 6.5 Albumin 4.1 Assessment and Plan (1) Hypercalcemia: Status: Acute Plan 42M PMH mood disorder, opiate dependence, nephrolithiasis presented with 2-3 weeks of feeling unwell Diffuse body aches and dehydration due to hypercalcemia due to primary hyperparathyroidism IV fluids -LR, monitor labs, Nephrology appreciated started sensipar 30mg, will increase to 30mg bid outpatient sestamibi and follow up hypophosphatemia replace, monitor hypokalemia replace and monitor Opiate dependence with percipitated withdrawl Addiction team following continue clonidine, atarax opiates prn (patient not currently interested in any opiates or opiate replacement therapy) Obesity Weight loss recommended DVT prophylaxis with Lovenox Full Code reason for continued hospitalization:hypercalcemia, withdrawal symptoms ongoing Quality Stroke Does the patient have a stroke diagnosis?: No VTE Prior VTE?: No VTE Risk Level:: Medical - moderate - high VTE Device Contraindication: Treatment Not Indicated VTE Drug Contraindication: N/A - Med Ordered
--- NOTE | 2023-04-21 09:51 | P.PNNP_ITS ---
Subjective Subjective Date of Service: 04/21/23 Interval history: c/o increased urine out put Physical Exam 2 Vital Signs: Vital Signs: Last Vital Signs Temp 97.5 F 04/21/23 07:15 Pulse 81 04/21/23 07:15 Resp 16 04/21/23 07:15 BP 149/94 H 04/21/23 07:15 Pulse Ox 96 04/21/23 07:15 O2 Del Method Room Air 04/21/23 07:15 BMI result Body Mass Index 35.1 Const: General: comfortable Nutritional Appearance: well nourished O rientation/consciousness: patient oriented x3 HEENT: Head: No normal to inspection Mouth: moist mucous membranes Neck: Neck: Yes supple and Yes no JVD Resp: Auscultation: clear to auscultation bilaterally, no rales and rub present Cardio: Jugular venous distension: no JVD Palpation: no palpable S3 and no palpable S4 Heart sounds: no rubs GI: Palpation (GI): Soft to palpation and nontender Percussion: No Fluid wave present : General: Yes no CVA tenderness Back/Spine/Pelvis: Back: no CVA tenderness Skin: General skin exam: no rashes or lesions noted Neuro: General: patient oriented x3 Extrem: General: Yes no pedal edema and No clubbing Objective Data Labs 04/21/23 05:36 04/21/23 05:36 Labs: Laboratory Results - last 24 hr 04/21/23 05:36 WBC 9.5 RBC 5.06 Hgb 14.4 Hct 40.9 L MCV 80.8 MCH 28.5 MCHC 35.2 RDW 12.6 Plt Count 227 MPV 10.4 Absolute Nucleated RBC 0.000 Nucleated RBC % (auto) 0.0 Sodium 142 Potassium 3.1 L D Chloride 110 H Carbon Dioxide 26 Anion Gap 9 L BUN 9 Creatinine 0.86 Estim Creat Clear Calc 149.1 Estimated GFR > 60 Fasting Glucose 98 Calcium 11.6 H Phosphorus 1.9 L Total Bilirubin 0.5 Direct Bilirubin 0.2 AST 14 ALT 17 Alkaline Phosphatase 110 Total Protein 6.5 Albumin 4.1 Procedures Date of Service Date of Service: 04/21/23 Assessment & Plan Assessment and plan (1) Hypercalcemia: Status: Acute Plan Middle aged man with Hypercalcemia due tto primary hyperparathyroidism Suggest IV Hydration change IVF to NS instead of LR Sensipar 30 mcg QD Parathyroid scan- can be done as out patient Check Vit D levels If Ca is < 11, can be discharged and will follow as out pt Time Spent With Patient Time: Total time managing care of this patient today ____ minutes. Progress Note: Quality Stroke Does the patient have a stroke diagnosis?: No
[2023-04-21] MEDS: Potassium Chloride ER 20 MEQ TAB.ER.PRT 40 MEQ PO (10:46)
[2023-04-21] MEDS: cloNIDine HCL 0.1 MG TABLET PO (10:48)
[2023-04-21 11:22] LABS: Vitamin D 25-OH Total 14.9 ng/mL (>30)
[2023-04-21] MEDS: QUEtiapine Fumarate 25 MG TABLET PO (12:11)
[2023-04-21 15:26] VITALS: RESP 18
[2023-04-21 15:40] VITALS: BP 152/92; PULSE 87; RESP 18; TEMP 36.9; O2SAT 98
--- NOTE | 2023-04-21 15:51 | MHC.RECOVRN ---
Met with pt to follow up and assess for withdrawal. Pt sitting in bed, awake, alert, easily engages in conversation. Pt reports minimal withdrawal symptoms, however, is still unable to sleep. Pt would like to continue care with the [facility] upon discharge for relapse prevention. Appt to be made prior to dc. Pt denies other questions or concerns for t/w. Discussed with Nancy Pearce APRN.
--- NOTE | 2023-04-21 16:58 | P.PNADD_ITS ---
Subjective Subjective Date of Service: 04/20/23 Reason For Visit: hypercalcemia Interim History: Patient medically admitted with hypercalcemia. Notes reviewed from over thw wkend--precipitated withdrawal on Thursday. Some difficulty managing sx, however after some time sx improved. Since then, patient has declined all opiates. He reports want to be done with all of this . Reports feeling miserable . Denies loose stools, nausea or restlessness. Has not slept in days. Review of Systems Acute medical concerns: Yes Medical Review of Systems: unchanged Mental Status Exam Mental Status Exam Level of Consciousness: Awake and Appropriate Patient Behavior: Appropriate Mood Description: Calm Affect Description: Calm and Anxious Speech Pattern: Clear Diagnostics Vital Signs (24Hr): Vital Signs - 24 hr 04/20/23 23:47 04/21/23 07:15 04/21/23 15:26 Temperature 97.1 F 97.5 F Pulse Rate 82 81 Respiratory Rate 16 16 18 Blood Pressure 146/90 H 149/94 H Pulse Oximetry 99 96 Oxygen Delivery Method Room Air Room Air 04/21/23 15:40 Temperature 98.4 F Pulse Rate 87 Respiratory Rate 18 Blood Pressure 152/92 H Pulse Oximetry 98 Oxygen Delivery Method Room Air BMI result Body Mass Index 35.1 Labs 04/21/23 05:36 04/21/23 05:36 Labs: Laboratory Results - last 48 hr 04/20/23 04/21/23 05:31 05:36 WBC 8.5 9.5 RBC 4.77 5.06 Hgb 14.0 14.4 Hct 39.4 L 40.9 L MCV 82.6 80.8 MCH 29.4 28.5 MCHC 35.5 35.2 RDW 12.6 12.6 Plt Count 208 227 MPV 11.5 10.4 Absolute Nucleated RBC 0.000 0.000 Nucleated RBC % (auto) 0.0 0.0 Sodium 139 142 Potassium 3.9 D 3.1 L D Chloride 113 H 110 H Carbon Dioxide 19 L 26 Anion Gap 11 L 9 L BUN 10 9 Creatinine 0.78 0.86 Estim Creat Clear Calc 164.4 149.1 Estimated GFR > 60 > 60 Fasting Glucose 99 98 Calcium 11.2 H 11.6 H Phosphorus 2.0 L 1.9 L Total Bilirubin 0.6 0.5 Direct Bilirubin 0.2 0.2 AST 18 14 ALT 18 17 Alkaline Phosphatase 110 110 Total Protein 6.3 L 6.5 Albumin 3.8 4.1 25-OH Vitamin D Total 14.9 L Medications Medications Current Medications Acetaminophen (Acetaminophen 325 Mg Tablet) 650 mg PO Q6H PRN PRN Reason: mpain Last Admin: 04/19/23 17:52 Dose: 650 mg Cinacalcet (Cinacalcet Hcl 30 Mg Tablet) 30 mg PO BIDWM HELEN Clonidine HCl (Clonidine Hcl 0.1 Mg Tablet) 0.1 mg PO QID PRN; Protocol PRN Reason: Withdrawal Symptoms Last Admin: 04/21/23 10:48 Dose: 0.1 mg Enoxaparin Sodium (Enoxaparin Sodium 40 Mg/0.4 Ml Syringe) 40 mg SUBCUT Q24H [facility] Last Admin: 04/21/23 09:05 Dose: 40 mg Hydromorphone HCl (Hydromorphone Hcl 1 Mg/Ml Syringe) 2 mg IVPUSH Q2H PRN; Protocol PRN Reason: withdrawal Last Admin: 04/18/23 18:46 Dose: 2 mg Hydroxyzine HCl (Hydroxyzine Hcl 25 Mg Tablet) 25 mg PO QID PRN PRN Reason: anxiety Last Admin: 04/20/23 18:36 Dose: 25 mg Lactated Ringer's (Lr) 1,000 mls @ 100 mls/hr IVCONT .Q10H [facility] Last Admin: 04/21/23 15:32 Dose: 100 mls/hr Loperamide HCl (Loperamide Hcl 2 Mg Capsule) 2 mg PO Q4H PRN PRN Reason: Diarrhea Last Admin: 04/19/23 10:18 Dose: 2 mg Melatonin (Melatonin 3 Mg Tablet) 6 mg PO BEDTIME PRN PRN Reason: Insomnia Last Admin: 04/17/23 21:59 Dose: 6 mg Morphine Sulfate (Morphine Sulfate 4 Mg/Ml Cartridge) 4 mg IVPUSH Q3H PRN; Protocol PRN Reason: withdrawal Last Admin: 04/18/23 12:04 Dose: 4 mg Ondansetron HCl (Ondansetron Hcl 4 Mg/2 Ml Vial) 4 mg IVPUSH Q8H PRN PRN Reason: Nausea Last Admin: 04/19/23 12:53 Dose: 4 mg Sodium Chloride (0.9 % Sodium Chloride Flush 3 Ml Syringe) 3 ml IVFLUSH QSHIFT [facility] Last Admin: 04/21/23 09:06 Dose: Not Given Trazodone HCl (Trazodone Hcl 50 Mg Tablet) 50 mg PO BEDTIME [facility] Last Admin: 04/20/23 20:02 Dose: 50 mg Allergies Allergies Allergy/AdvReac Type Severity Reaction Status Date / Time No Known Allergies Allergy Verified 04/17/23 09:58 Assessment & Plan Assessment & Plan (1) Opioid use disorder: Status: Acute Code(s): F11.90 - Opioid use, unspecified, uncomplicated Assessment and Plan: * encouraged comfort medications * overdose prevention discussion as risk is much higher with no MOUD. * reminded that he can start suboxone at any time if he so wishes * added trazodone for sleep. Total time managing care of this patient today __35__ minutes.
[2023-04-21] MEDS: traZODone HCL 100 MG TABLET PO (21:27)
[2023-04-21] MEDS: hydrOXYzine HCL 25 MG TABLET PO (21:27)
[2023-04-21 23:51] VITALS: BP 136/86; PULSE 65; RESP 16; TEMP 36.4; O2SAT 97
[2023-04-22] MEDS: Lactated Ringers 1,000 ML 100 ML IVCONT (01:48)
[2023-04-22 06:33] LABS: Alanine Aminotransferase 21 U/L (0-40); Alkaline Phosphatase 107 U/L (39-117); Anion Gap 10 (12-20); Aspartate Amino Transferase 13 U/L (5-37); Bilirubin Direct 0.2 mg/dL (0.0-0.5); Bilirubin Total 0.4 mg/dL (0.0-1.0); Blood Urea Nitrogen 9 mg/dL (9-16); Calcium 11.2 mg/dL (8.4-10.2); Carbon Dioxide 24 mmol/L (22-29); Chloride 110 mmol/L (96-108); Creatinine Clr Calc Pharmacy 154.5; Estimated Glomerular Filt Rate > 60; Glucose Fasting 100 mg/dL (60-99); Magnesium 1.9 mg/dL (1.6-2.6); Phosphorus 2.1 mg/dL (2.7-4.5); Potassium 3.1 mmol/L (3.3-5.1); Sodium 141 mmol/L (135-145); Total Protein 6.3 g/dL (6.5-8.0)
[2023-04-22 06:36] LABS: Hemoglobin 14.1 g/dl (14.0-18.0); Mean Corpuscular HGB Conc 36.2 g/dl (31.0-36.0); Mean Corpuscular Hemoglobin 29.7 pg (27.0-33.0); Mean Corpuscular Volume 82.1 fL (80.0-98.0); Mean Platelet Volume 11.1 fL (9.4-12.4); Platelet Count 232 X10*3/uL (160-400); Red Blood Count 4.75 X10*6/uL (4.60-5.80); Red Cell Distribution Width 12.8 % (11.0-16.0); White Blood Count 9.7 X10*3/uL (4.8-10.8)
[2023-04-22 07:29] VITALS: BP 154/98; PULSE 72; RESP 18; TEMP 36; O2SAT 95
[2023-04-22] MEDS: 0.9 % Sodium Chloride 1,000 ML 125 ML IVCONT (08:22)
[2023-04-22] MEDS: Potassium Chloride Packet 20 MEQ PACKET 40 MEQ PO (08:23)
[2023-04-22] MEDS: Cinacalcet HCl 30 MG TABLET PO (08:23)
[2023-04-22] MEDS: hydrOXYzine HCL 25 MG TABLET PO ×2 (08:23→13:00)
[2023-04-22] MEDS: 0.9 % Sodium Chloride Flush 3 ML SYRINGE IVFLUSH (08:31)
--- NOTE | 2023-04-22 09:38 | P.PNNP_ITS ---
Subjective Subjective Date of Service: 06/04/23 Interval history: Patient medically admitted with hypercalcemia. Notes reviewed from over w wkend--precipitated withdrawal on Thursday. Some difficulty managing sx, however after some time sx improved. Since then, patient has declined all opiates. He reports want to be done with all of this . Reports feeling miserable . Denies loose stools, nausea or restlessness. Has not slept in days. Physical Exam 2 Vital Signs: Vital Signs: Last Vital Signs Temp 96.8 F 04/22/23 07:29 Pulse 72 04/22/23 07:29 Resp 18 04/22/23 07:29 BP 154/98 H 04/22/23 07:29 Pulse Ox 95 04/22/23 07:29 O2 Del Method Room Air 04/22/23 07:29 BMI result Body Mass Index 35.1 Const: General: comfortable Nutritional Appearance: well nourished O rientation/consciousness: patient oriented x3 HEENT: Head: No normal to inspection Mouth: moist mucous membranes Neck: Neck: Yes supple and Yes no JVD Resp: Auscultation: clear to auscultation bilaterally, no rales and rub present Cardio: Jugular venous distension: no JVD Palpation: no palpable S3 and no palpable S4 Heart sounds: no rubs GI: Palpation (GI): Soft to palpation and nontender Percussion: No Fluid wave present : General: Yes no CVA tenderness Back/Spine/Pelvis: Back: no CVA tenderness Skin: General skin exam: no rashes or lesions noted Neuro: General: patient oriented x3 Extrem: General: Yes no pedal edema and No clubbing Objective Data Labs 04/22/23 05:49 04/22/23 05:49 Labs: Laboratory Results - last 24 hr 04/21/23 04/22/23 05:36 05:49 WBC 9.7 RBC 4.75 Hgb 14.1 Hct 39.0 L MCV 82.1 MCH 29.7 MCHC 36.2 H RDW 12.8 Plt Count 232 MPV 11.1 Absolute Nucleated RBC 0.000 Nucleated RBC % (auto) 0.0 Sodium 141 Potassium 3.1 L Chloride 110 H Carbon Dioxide 24 Anion Gap 10 L BUN 9 Creatinine 0.83 Estim Creat Clear Calc 154.5 Estimated GFR > 60 Fasting Glucose 100 H Calcium 11.2 H Phosphorus 2.1 L Magnesium 1.9 Total Bilirubin 0.4 Direct Bilirubin 0.2 AST 13 ALT 21 Alkaline Phosphatase 107 Total Protein 6.3 L Albumin 4.0 25-OH Vitamin D Total 14.9 L Procedures Date of Service Date of Service: 06/04/23 Assessment & Plan Assessment and plan (1) Hypercalcemia: Status: Resolved (2) Hypophosphatemia: Status: Resolved Plan Work up in progress for Hyperparathyroidism Keep on Cinacalcet REpeat CA and PTH Time Spent With Patient Time: Total time managing care of this patient today ____ minutes. Progress Note: Quality Stroke Does the patient have a stroke diagnosis?: No
--- NOTE | 2023-04-22 11:47 | PM.DS ---
DS: Providers Provider Date of Service: 04/22/23 Date of admission: 04/17/23 17:36 Primary care physician: Zeke Crow MD Consults: 04/17/23 17:36 Addiction Medicine Routine Consulting Provider: [facility] Reason for consultation: opiate 04/17/23 17:42 Consult to Nephrology Routine Consulting Provider: [facility] Reason for consultation: hyperPTH DS: Diagnosis Discharge Diagnosis (1) Opioid use disorder: Status: Acute (2) Hypophosphatemia: Status: Acute (3) Hypercalcemia: Status: Acute (4) Hypokalemia: Status: Acute DS: Summary Hospital Course Hospital Course: Admission note HPI 42M PMH mood disorder, opiate dependence, nephrolithiasis presented with 2-3 weeks of feeling unwell. Patient reports poor intake, body aches, dysphagia. has been having difficulty staying hydrated. went to opiate program after symptoms began and started on suboxone. symptoms ongoing. on 04/14/23 labs found to have hypercalcemia 12, with some signs of concentration. in ED calcium now 12.5, albumin 4.6, PTH 450.6, tsh 0.25. Hospital course Admitted for evaluation of diffuse body aches and dehydration due to hypercalcemia due to primary hyperparathyroidism. Treated with IV fluids , CinaCalcet as he was evaluated by nephrology as he was found to have elevated PTH suggestive of primary hyperparathyroidism. He will need outpatient nuclear study and follow up with nephrology to assess his parathyroid glands function. hypophosphatemia a result of hypercalcemia. improved with replacement. Follow as outpatient. hypokalemia replaced. Had outpatient prescription. Opiate dependence with percipitated withdrawl Addiction team followed during hospital stay as he was kept on Suboxone. during hospital stay. along with Clonidine, Atarax. Started Trazodone as sleeping aid. Continue Cinacalcet as prescribed To repeat blood test next week To follow with dr James in office next week (please call office to confirm) Trazodone PRN bedtime to help with sleep. Time Attestation Discharge coordination time: Greater than 30 minutes Quality: Safe Use of Opioids Does Pt have an Active Cancer Diagnosis on the Problem List?: No Quality: Stroke Does the patient have a stroke diagnosis?: No Physical Exam Vital Signs: Vital Signs: Last Vital Signs Temp 96.8 F 04/22/23 07:29 Pulse 72 04/22/23 07:29 Resp 18 04/22/23 07:29 BP 154/98 H 04/22/23 07:29 Pulse Ox 95 04/22/23 07:29 O2 Del Method Room Air 04/22/23 07:29 BMI result Body Mass Index 35.1 Const: Other: Constitutional : Awake, interactive, not in distress Neck : Normal inspection, Supple Cardiovascular : RRR, no JVP, no lower extremity edema Respiratory : good bilateral air entry, no crackles, wheezes or rhonchi Gastrointestinal: soft, lax, Normal bowel sounds, Non tender Skin : Warm, Dry Neurological : Alert & oriented x3, No focal deficit DS: Data Data Completed and Pending Labs on day of discharge: Laboratory Results - last 24 hr 04/22/23 05:49 WBC 9.7 RBC 4.75 Hgb 14.1 Hct 39.0 L MCV 82.1 MCH 29.7 MCHC 36.2 H RDW 12.8 Plt Count 232 MPV 11.1 Absolute Nucleated RBC 0.000 Nucleated RBC % (auto) 0.0 Sodium 141 Potassium 3.1 L Chloride 110 H Carbon Dioxide 24 Anion Gap 10 L BUN 9 Creatinine 0.83 Estim Creat Clear Calc 154.5 Estimated GFR > 60 Fasting Glucose 100 H Calcium 11.2 H Phosphorus 2.1 L Magnesium 1.9 Total Bilirubin 0.4 Direct Bilirubin 0.2 AST 13 ALT 21 Alkaline Phosphatase 107 Total Protein 6.3 L Albumin 4.0 Discharge Plan Discharge Anticipated Discharge Date/Time: 04/22/23 11:40 Patient Disposition: Home, Self-Care Discharge Diagnosis: HYpercalcemia - Primary hyperparathyroidism Referrals: [facility] [Other] - 1 Week (You have an appointment scheduled 04/24/23 @ 2:30pm) Zeke Crow MD [Primary Care Provider] - 1 Week Discharge Medications: New cinacalcet [Sensipar] 30 mg Tablet 30 mg PO BIDWM Qty: 60 0RF trazodone 100 mg tablet 100 mg PO BEDTIME PRN (Reason: insomnia) Qty: 60 0RF Rx Instructions: Take 1 tab bedtime. increase to 2 tab if needed. Continued hydroxyzine HCl 25 mg tablet 25 mg PO BID PRN (Reason: anxiety) Qty: 14 0RF clonidine HCl 0.1 mg tablet 0.1 mg PO BID PRN (Reason: Withdrawal Symptoms) Rx Instructions: patient describes it as skin crawlies buprenorphine-naloxone 2-0.5 mg film 1 film buccal USEASDIRECTD Rx Instructions: Current Taper: Patient is on day 3 currently. Day 3: 1mg= 1/2 film of 2 mg film, take 1 hours before methadone dose. Day 4: Take 1/2 film of the 2 mg film one hour before methadone and take second dose @5pm. Day 5: Take 2 mg film in the morning before methadone and another film @5pm. Day 6: take 2 of the 2 mg films 1 hour before methadone. Day 7: take 2 of the 2 mg films in the morning and at 5pm. Day 8: start 8 mg film and take once in the morning. Day 9: take 8 mg film twice, once in the morning and once at 5pm. buprenorphine-naloxone 8-2 mg film 1 film buccal USEASDIRECTD Rx Instructions: Current Taper: Patient is on day 3 currently. Day 3: 1mg= 1/2 film of 2 mg film, take 1 hours before methadone dose. Day 4: Take 1/2 film of the 2 mg film one hour before methadone and take second dose @5pm. Day 5: Take 2 mg film in the morning before methadone and another film @5pm. Day 6: take 2 of the 2 mg films 1 hour before methadone. Day 7: take 2 of the 2 mg films in the morning and at 5pm. Day 8: start 8 mg film and take once in the morning. Day 9: take 8 mg film twice, once in the morning and once at 5pm. potassium chloride 20 mEq packet 20 meq PO BID Qty: 30 0RF ondansetron 4 mg tablet,disintegrating 4 mg PO Q8H PRN (Reason: nausea and vomiting) Qty: 21 0RF dicyclomine 20 mg tablet 20 mg PO QID PRN (Reason: abdominal pain) Qty: 30 0RF cyclobenzaprine 10 mg tablet 10 mg PO TID PRN (Reason: muscle spasm) Qty: 21 0RF Discharge Orders: Discharge Order (Routine); Ordered 04/22/23 Ordered By: Antonio Barraza Diet: Advance to usual diet Activity on Discharge: As tolerated Stand Alone Forms: Patient Portal Discharge page Other Ambulatory Orders: Basic Metabolic Panel (Routine) Timeframe: 5 Days Facility: [facility] - Location: Laboratory Ordered By: Antonio Barraza Calcium (Routine) Timeframe: 5 Days Facility: [facility] - Location: Laboratory Ordered By: Antonio Barraza Phosphorus (Routine) Timeframe: 5 Days Facility: [facility] - Location: Laboratory Ordered By: Antonio Barraza Care Plan Goals: Read below Health Concerns: Read below Plan of Treatment: Read below Assessment: You were admitted for evaluation of elevated Calcium levels. found to have elevated Parathyroid gland hormone which was treated with IV fluids and Cinacalcet with good response over the course of hospital stay as you were followed by [facility]. Continue Cinacalcet as prescribed To repeat blood test next week To follow with dr James in office next week (please call office to confirm) Discharge Date/Time: 04/22/23 13:20
--- NOTE | 2023-04-22 13:46 | MHC.CM.PN ---
Patient is discharged today to home self care. He will follow up with Addiction medicine Thursday04/24/23 2:23pm. He will be seen at the [facility]. He arranged for transportation home.
--- NOTE | 2023-04-22 15:30 | MHC.RECOVRN ---
Met with pt prior to discharge to discuss outpatient follow up. Pt continues to express interest in returning to the [facility]. Appt made for 04/24 at 2:30PM. Pt denies other questions or concerns. CM aware of [facility] appt.
== END 2023-04-22 13:20 | disposition home or self-care (01) | DRG 424 ==
LOC: HO.ED 16:38 → HO.EDOVER 18:17 → HO.S3 19:06
PROVIDERS: Internal Medicine Hypertension Specialist; Physician Assistant Medical; Admitting Provider Internal Medicine; Emergency Provider Emergency Medicine; PCP Family Medicine; Visit Provider Student in an Organized Health Care Education/Training Program
DX: E21.0 Primary hyperparathyroidism (principal); E66.9 Obesity, unspecified; E86.0 Dehydration; F11.23 Opioid dependence with withdrawal; Z68.35 Body mass index [BMI] 35.0-35.9, adult; E87.6 Hypokalemia; Z79.899 Other long term (current) drug therapy
CPT/HCPCS: 36415; 80048; 80053; 80076; 82306; 83690; 83735; 83970; 84100; 84436; 84443; 84480; 85025; 85027; 93005; 99285; J1170; J1650; J2270; J2405; J3360; J7120

== ENCOUNTER → 2023-04-17 11:32 | Outpatient (BNV) | payer MEDICAID, SELFPAY | PROVIDERS: Emergency Provider Emergency Medicine; PCP Family Medicine; Visit Provider Internal Medicine | DX: F11.23 Opioid dependence with withdrawal (principal); E83.39 Other disorders of phosphorus metabolism; E83.52 Hypercalcemia; E87.6 Hypokalemia | CPT/HCPCS: 99223; 99232; 99233; 99239 ==

== ENCOUNTER → 2023-04-17 12:21 | Outpatient (BNV) | payer MEDICAID, SELFPAY | PROVIDERS: Admitting Provider Internal Medicine; Emergency Provider Emergency Medicine; PCP Family Medicine; Visit Provider Internal Medicine | DX: R94.31 Abnormal electrocardiogram [ECG] [EKG] (principal) | CPT/HCPCS: 93010 ==

== ENCOUNTER → 2023-04-17 17:36 | Outpatient (BNV) | payer MEDICAID, SELFPAY | PROVIDERS: Admitting Provider Internal Medicine; Emergency Provider Emergency Medicine; PCP Family Medicine; Visit Provider Nurse Practitioner Psychiatric/Mental Health | DX: F11.90 Opioid use, unspecified, uncomplicated (principal) | CPT/HCPCS: 99232 ==

== ENCOUNTER → 2023-04-17 17:36 | Outpatient (BNV) | payer MEDICAID, SELFPAY | PROVIDERS: Admitting Provider Internal Medicine; Emergency Provider Emergency Medicine; PCP Family Medicine; Visit Provider Internal Medicine Nephrology | DX: E83.52 Hypercalcemia (principal); E83.39 Other disorders of phosphorus metabolism | CPT/HCPCS: 99222; 99231; 99232; 99499 ==

== ENCOUNTER 2023-04-24 14:19 | Outpatient (AMB) | payer MEDICAID, SELFPAY ==
--- NOTE | 2023-04-24 14:26 | MHC.AM.SUB ---
Intake Intake Visit Reasons: Follow up Allergies No Known Allergies Allergy (Verified 04/17/23 09:58) [facility] Medical History (Updated 04/23/23 @ 00:03 by Jairo Lopez) Opioid use disorder Mood disorder Opiate addiction Nephrolithiasis Social History Household Members: Children and Other Household Members Other:: girlfriend Housing: House Do you presently have visiting nurse or other home services: No Patient Tobacco Use Status: Never used Tobacco Substance Use Type: Heroin service: No Coding
[2023-04-24 14:50] VITALS: BP 160/100; PULSE 98; O2SAT 93
--- NOTE | 2023-04-24 16:05 | A.OFFVISCC_ITS ---
Intake Vital Signs 04/24/23 14:50 BP 160/100 H Blood Pressure Location Rt radial Position Sitting Pulse 98 Pulse Oximetry (%) 93 Intake Visit Reasons: Follow up Allergies No Known Allergies Allergy (Verified 04/17/23 09:58) HPI Follow up HPI Details Patient presents for follow up post hospital stay over the weekend He has a new diagnosis of hyperparathyroidism He has not taken any opiates since Thursday the Mar He has also not taken any comfor meds or suboxone up until this point, I am strong, I can get through this He is concerned about trading one addiction for another He is reporting poor sleep and continues to have poor PO intake, although he did confirm he is still taking his cinacalcet He reports much less muscle cramping than he previously was experiencing [facility] Medical History (Updated 04/27/23 @ 09:26 by Maritza Avalos NP) Opioid use disorder Mood disorder Opiate addiction Nephrolithiasis Social History Household Members: Children and Other Household Members Other:: girlfriend Housing: House Do you presently have visiting nurse or other home services: No Patient Tobacco Use Status: Never used Tobacco Substance Use Type: Heroin service: No Review of Systems Const Reports as per HPI, Reports difficulty sleeping, Reports lethargy and Reports p oor appetite Card Reports no additional complaints Resp Reports no additional complaints GI Reports as per HPI Physical Exam Vital Signs: Last Vital Signs Pulse 98 04/24/23 14:50 BP 160/100 H 04/24/23 14:50 Pulse Ox 93 04/24/23 14:50 Const General: cooperative and no acute distress Resp Effort & Inspection: normal respiratory effort and able to speak in complete sentences Skin General skin exam: no rashes or lesions noted Psych Appearance: grossly normal Mental Status: mental status grossly normal Speech and movement: Normal speech and movement present Affect: normal affect Attitude: Guarded attititude/behavior present Thought process: Normal thought process present Assessment & Plan Assessment & Plan (1) Opioid use disorder: Code(s): F11.90 - Opioid use, unspecified, uncomplicated Plan: 04/24 -Reviewed benefits to taking suboxone or comfort meds to relieve withdrawal symptoms -Discussed at length with patient that taking suboxone is not trading one addiction for another -Discussed with him to start drinking Ensure or Boost to address the nutritional deficit secondary to poor PO intake -Discussed with pt if he does decide to take his suboxone over the weekend, to take in 4mg increments until his symptoms subside 04/27 -Refill sent for 8mg films as he did begin to take his films over the weekend -Office nurse to follow up [facility] pt via phone -Follow up 1 week in clinic Medications: New buprenorphine-naloxone 8-2 mg 1 film buccal DAILY 14 ea 0RF Coding Level of Care Code Est Pt Level 3 (19977) Diagnoses Opioid use disorder F11.90
== END 2023-04-24 15:19 | disposition home or self-care (01) ==
PROVIDERS: PCP Family Medicine; Visit Provider Nurse Practitioner Family
DX: F11.90 Opioid use, unspecified, uncomplicated (principal)
CPT/HCPCS: 99213

== ENCOUNTER → 2023-04-24 14:19 | Outpatient (BNVA) | payer MEDICAID, SELFPAY | PROVIDERS: PCP Family Medicine | DX: F11.20 Opioid dependence, uncomplicated (principal) | CPT/HCPCS: 99212 ==

== ENCOUNTER 2023-04-27 13:38 | Outpatient (AMB) | payer MEDICAID, SELFPAY ==
[2023-04-27 13:40] VITALS: BP 124/86; PULSE 83; O2SAT 98; BMI 34.7
--- NOTE | 2023-04-27 13:40 | HO.NEPHOV_ITS ---
HPI HPI Comments History of Present Illness Details 42M with mood disorder, opiate dependen ce, nephrolithiasis presented to [facility] 2 weeks ago with 2-3 weeks of feeling unwell. Patient reported poor intake, body aches, dysphagia. has been having difficulty staying hydrated. went to opiate program after symptoms began and started on suboxone. symptoms ongoing. on 04/14/23 labs found to have hypercalcemia 12, with some signs of concentration. in ED calcium was 12.5, albumin 4.6, PTH 450.6, tsh 0.25. PTH was elevated Diagnosed woth PRimary hyperparathydism Discharged home on Cinacalcet - pending parathyroid scan Today he is feeling fine No issues h/o Renal stones x 2 in the past [facility] Medical History (Updated 04/27/23 @ 13:57 by Jamin James MD) Opioid use disorder Mood disorder Opiate addiction Nephrolithiasis Social History Household Members: Children and Other Household Members Other:: girlfriend Housing: House Do you presently have visiting nurse or other home services: No Patient Tobacco Use Status: Never used Tobacco Substance Use Type: Heroin service: No Vital Signs 04/27/23 13:40 Height 6 ft Weight 256 lb BMI 34.7 BP 124/86 Blood Pressure Location Lt brachial Position Sitting Pulse 83 Pulse Source Pulse Oximeter Pulse Oximetry (%) 98 Oxygen Delivery Method Room Air Physical Exam Vital Signs: Last Vital Signs Pulse 83 04/27/23 13:40 BP 124/86 04/27/23 13:40 Pulse Ox 98 04/27/23 13:40 Oxygen Delivery Method Room Air 04/27/23 13:40 BMI result Body Mass Index 34.7 Const General: comfortable Nutritional Appearance: well nourished Orientation/consciousness: patient oriented x3 HEENT Head: No normal to inspection Mouth: moist mucous membranes Neck Neck: Yes supple and Yes no JVD Resp Auscultation: clear to auscultation bilaterally, no rales and rub present Cardio Jugular venous distension: no JVD Palpation: no palpable S3 and no palpable S4 Heart sounds: no rubs GI Palpation (GI): Soft to palpation and nontender Percussion: No Fluid wave present General: Yes no CVA tenderness Back/Spine/Pelvis Back: no CVA tenderness Skin General skin exam: no rashes or lesions noted Neuro General: patient oriented x3 Extrem General: Yes no pedal edema and No clubbing Assessment & Plan Assessment & Plan (1) Hyperparathyroidism: Code(s): E21.3 - Hyperparathyroidism, unspecified (2) Nephrolithiasis: Code(s): N20.0 - Calculus of kidney Plan Middle aged man with hypercalcemia due to hyperparathyrodism Plan: Parathyroid scan Repeat serum calcium and PTH today Will resume Cinacalcet if PTH is elevated - pending scan Low salt diet Increase PO fluid intake/ Increase Citratre intake Orders: Orders Electrolytes Today N20.0 - Calculus of kidney Creatinine Today N20.0 - Calculus of kidney Parathyroid Hormone Intact Today N20.0 - Calculus of kidney NM parathyroid Today E21.3 - Hyperparathyroidism, unspecified Blood Urea Nitrogen Today N20.0 - Calculus of kidney Coding Level of Care Code Est Pt Level 4 (89727) Diagnoses Hyperparathyroidism E21.3 Nephrolithiasis N20.0 Results Reviewed Nephrology Results: Hgb 14.1 g/dl (14.0-18.0) 04/22/23 WBC 9.7 X10*3/uL (4.8-10.8) 04/22/23 Plt Count 232 X10*3/uL (160-400) 04/22/23 Sodium 141 mmol/L (135-145) 04/22/23 Potassium 3.1 mmol/L (3.3-5.1) L 04/22/23 Chloride 110 mmol/L (96-108) H 04/22/23 Carbon Dioxide 24 mmol/L (22-29) 04/22/23 BUN 9 mg/dL (9-16) 04/22/23 Creatinine 0.83 mg/dL (0.5-1.4) 04/22/23 Calcium 11.2 mg/dL (8.4-10.2) H 04/22/23 Phosphorus 2.1 mg/dL (2.7-4.5) L 04/22/23 PTH Intact 450.6 pg/mL (8.7-77.1) H 04/17/23
== END 2023-04-27 14:00 | disposition home or self-care (01) ==
PROVIDERS: PCP Family Medicine; Visit Provider Internal Medicine Hypertension Specialist
DX: E21.3 Hyperparathyroidism, unspecified (principal); N20.0 Calculus of kidney
CPT/HCPCS: 99214

== ENCOUNTER 2023-04-27 13:38 | Outpatient (REF) | payer MEDICAID, SELFPAY ==
[2023-04-27 15:37] LABS: Anion Gap 12 (12-20); Blood Urea Nitrogen 11 mg/dL (9-16); Carbon Dioxide 22 mmol/L (22-29); Chloride 107 mmol/L (96-108); Estimated Glomerular Filt Rate > 60; Sodium 138 mmol/L (135-145)
[2023-04-27 15:49] LABS: Parathyroid Hormone Intact 548.2 pg/mL (8.7-77.1)
== END 2023-04-27 13:39 | disposition home or self-care (01) ==
LOC: HO.LAB 13:38
PROVIDERS: PCP Family Medicine; Visit Provider Internal Medicine Hypertension Specialist
DX: N20.0 Calculus of kidney (principal); F11.24 Opioid dependence with opioid-induced mood disorder
CPT/HCPCS: 36415; 80051; 82565; 83970; 84520; 99212

== ENCOUNTER 2023-04-28 13:09 | Outpatient (REF) | payer MEDICAID, SELFPAY ==
[2023-04-28 14:43] LABS: Anion Gap 13 (12-20); Blood Urea Nitrogen 11 mg/dL (9-16); Calcium 11.8 mg/dL (8.4-10.2); Carbon Dioxide 24 mmol/L (22-29); Chloride 106 mmol/L (96-108); Estimated Glomerular Filt Rate > 60; Glucose Random 91 mg/dL (60-115); Potassium 3.2 mmol/L (3.3-5.1); Sodium 140 mmol/L (135-145)
[2023-05-02 01:28] LABS: VITAMIN D (1,25 OH) D3 83 pg/mL; Vit D (1,25-Dihydroxy) Total 83 pg/mL (18-72); Vitamin D (1,25 OH) D2 <8 pg/mL
== END 2023-04-28 13:10 | disposition home or self-care (01) ==
LOC: HO.LAB 13:09
PROVIDERS: Nurse Practitioner Family; Absent Provider Internal Medicine Hypertension Specialist; PCP Family Medicine; Visit Provider Student in an Organized Health Care Education/Training Program
DX: E83.52 Hypercalcemia (principal); E83.39 Other disorders of phosphorus metabolism; Z76.89 Persons encountering health services in other specified circumstances
CPT/HCPCS: 36415; 80048; 82652; 83970; 84100

== ENCOUNTER 2023-05-04 14:29 | Outpatient (REF) | payer MEDICAID, SELFPAY ==
[2023-05-04 16:10] LABS: Anion Gap 10 (12-20); Blood Urea Nitrogen 10 mg/dL (9-16); Calcium 11.9 mg/dL (8.4-10.2); Carbon Dioxide 24 mmol/L (22-29); Chloride 111 mmol/L (96-108); Estimated Glomerular Filt Rate > 60; Potassium 3.5 mmol/L (3.3-5.1); Sodium 141 mmol/L (135-145)
== END 2023-05-04 14:30 | disposition home or self-care (01) ==
LOC: HO.LAB 14:29
PROVIDERS: Absent Provider Internal Medicine Hypertension Specialist; PCP Family Medicine; Visit Provider Nurse Practitioner Family
DX: E87.6 Hypokalemia (principal); E21.3 Hyperparathyroidism, unspecified; F11.20 Opioid dependence, uncomplicated
CPT/HCPCS: 36415; 80051; 82310; 82565; 84520; 99212

== ENCOUNTER 2023-05-04 14:29 | Outpatient (AMB) | payer MEDICAID, SELFPAY ==
--- NOTE | 2023-05-04 14:31 | MHC.AM.SUB ---
Intake Vital Signs 05/04/23 14:36 BP 118/82 Blood Pressure Location Lt radial Position Sitting Pulse 84 Pulse Source Pulse Oximeter Pulse Oximetry (%) 97 Oxygen Delivery Method Room Air Intake Visit Reasons: mat visit Intake Note: the patient presents for a mat visit [employer] Required: No Allergies No Known Allergies Allergy (Verified 05/04/23 14:37) Do you need a note to return to daycare/school/sports/work: No HPI mat visit HPI Details Patient presents for MAT visit Reports he requested for refill on of last week so he would not become sick over the weekend He reports he was never called by the pharmacy that he had films available, so he was stretching his films through the weekend. Reports only film he took this morning was a 4mg and denies any symptoms of withdrawal at this time His hope is to begin weaning himself off his films. Mood seems elevated at this time, with bright affect [facility] Medical History (Updated 04/27/23 @ 13:57 by Jamin Jamse MD) Opioid use disorder Mood disorder Opiate addiction Nephrolithiasis Social History Household Members: Children and Other Household Members Other:: girlfriend Housing: House Do you presently have visiting nurse or other home services: No Patient Tobacco Use Status: Never used Tobacco Substance Use Type: Heroin service: No Review of Systems Const Reports as per HPI Physical Exam Vital Signs: Last Vital Signs Pulse 84 05/04/23 14:36 BP 118/82 05/04/23 14:36 Pulse Ox 97 05/04/23 14:36 Oxygen Delivery Method Room Air 05/04/23 14:36 Const General: cooperative and healthy appearing Resp Effort & Inspection: normal respiratory effort Psych Appearance: grossly normal Mental Status: mental status grossly normal Speech and movement: Normal speech and movement present Affect: normal affect Attitude: cooperative Thought process: Normal thought process present Assessment & Plan Assessment & Plan (1) Opioid use disorder: Code(s): F11.90 - Opioid use, unspecified, uncomplicated Plan: -Mass pat reviewed -Resent refill to pharmacy -Discussed with patient risks of weaning off his medication too soon or too quickly -DIscussed with patient that t/w would still like to see him regularly to support him in early recovery -Discussed relapse prevention -Follow up 1 week Medications: Refilled buprenorphine-naloxone 8-2 mg 1 film buccal BID 14 ea 0RF buprenorphine-naloxone 4-[address] 1 strip/tab under (each) side of tongue 1 film buccal Q24H 7 ea 0RF Coding Level of Care Code Est Pt Level 3 (65799) Diagnoses Opioid use disorder F11.90
[2023-05-04 14:36] VITALS: BP 118/82; PULSE 84; O2SAT 97
== END 2023-05-04 16:15 | disposition home or self-care (01) ==
PROVIDERS: PCP Family Medicine; Visit Provider Nurse Practitioner Family
DX: F11.90 Opioid use, unspecified, uncomplicated (principal)
CPT/HCPCS: 99213

== ENCOUNTER 2023-05-13 15:30 | Outpatient (AMB) | payer MEDICAID, SELFPAY ==
[2023-05-13 15:35] VITALS: BP 160/90; PULSE 63; O2SAT 96
--- NOTE | 2023-05-13 15:35 | MHC.AM.SUB ---
Intake Vital Signs 05/13/23 15:35 BP 160/90 H Blood Pressure Location Rt radial Position Sitting Pulse 63 Pulse Source Pulse Oximeter Pulse Oximetry (%) 96 Intake Visit Reasons: mat visit Allergies No Known Allergies Allergy (Verified 05/04/23 14:37) HPI mat visit HPI Details Patient presents for OUD treatment and follow up Reports no concerns about his suboxone dose at this time Denies side effects, cravings, dreams of using, or withdrawal symptoms Is concerned because his is still using Has been getting multiple job offers and feels as though things are looking up for him [facility] Medical History (Updated 04/27/23 @ 13:57 by Jamin James MD) Opioid use disorder Mood disorder Opiate addiction Nephrolithiasis Social History Household Members: Children and Other Household Members Other:: girlfriend Housing: House Do you presently have visiting nurse or other home services: No Patient Tobacco Use Status: Never used Tobacco Substance Use Type: Heroin service: No Review of Systems Const Reports as per HPI Physical Exam Vital Signs: Last Vital Signs Pulse 63 05/13/23 15:35 BP 160/90 H 05/13/23 15:35 Pulse Ox 96 05/13/23 15:35 Const General: cooperative Resp Effort & Inspection: normal respiratory effort Skin General skin exam: no rashes or lesions noted Psych Appearance: grossly normal Mental Status: mental status grossly normal Speech and movement: Normal speech and movement present Affect: normal affect Attitude: cooperative Assessment & Plan Assessment & Plan (1) Opioid use disorder: Code(s): F11.90 - Opioid use, unspecified, uncomplicated Plan: -Continue Suboxone same dose 8mg bid, 4mg daily -Mass pat reviewed -FOllow up 1 week Coding Level of Care Code Est Pt Level 3 (69137) Diagnoses Opioid use disorder F11.90
== END 2023-05-13 15:59 | disposition home or self-care (01) ==
PROVIDERS: PCP Family Medicine; Visit Provider Nurse Practitioner Family
DX: F11.90 Opioid use, unspecified, uncomplicated (principal)
CPT/HCPCS: 99213

== ENCOUNTER → 2023-05-13 15:30 | Outpatient (BNVA) | payer MEDICAID, SELFPAY | PROVIDERS: PCP Family Medicine; Visit Provider Nurse Practitioner Family | DX: F11.20 Opioid dependence, uncomplicated (principal) | CPT/HCPCS: 99212 ==

== ENCOUNTER 2023-05-19 16:01 | Outpatient (AMB) | payer MEDICAID, SELFPAY ==
--- NOTE | 2023-05-19 16:03 | A.OFFVISCC_ITS ---
Intake Vital Signs 05/19/23 16:10 BP 122/84 Blood Pressure Location Lt radial Position Sitting Pulse 84 Pulse Source Pulse Oximeter Pulse Oximetry (%) 97 Oxygen Delivery Method Room Air Intake Visit Reasons: mat visit Intake Note: the patient presents for a mat visit Route Service Manager Required: No Allergies No Known Allergies Allergy (Verified 05/19/23 16:11) Do you need a note to return to daycare/school/sports/work: No HPI mat visit HPI Details Patient presents for MAT visit Reports he has been taking 8mg suboxone in the morning, states he has not needed the 4mg midday or 8mg evening dose He denies experiencing withdrawal symptoms, has no cravings, or using dreams He is feeling good about prospective jobs coming up for him Has no concerns at this time COUNT INCLUDES [facility] Medical History (Updated 04/27/23 @ 13:57 by Jamin James MD) Opioid use disorder Mood disorder Opiate addiction Nephrolithiasis Social History Household Members: Children and Other Household Members Other:: girlfriend Housing: House Do you presently have visiting nurse or other home services: No Patient Tobacco Use Status: Never used Tobacco Substance Use Type: Heroin service: No Review of Systems Const Reports as per HPI Physical Exam Vital Signs: Last Vital Signs Pulse 84 05/19/23 16:10 BP 122/84 05/19/23 16:10 Pulse Ox 97 05/19/23 16:10 Oxygen Delivery Method Room Air 05/19/23 16:10 Const General: cooperative, healthy appearing and no acute distress Resp Effort & Inspection: normal respiratory effort Psych Appearance: grossly normal Mental Status: mental status grossly normal Speech and movement: Normal speech and movement present Affect: normal affect Attitude: cooperative Thought process: Normal thought process present Assessment & Plan Assessment & Plan (1) Opioid use disorder: Code(s): F11.90 - Opioid use, unspecified, uncomplicated Plan: -Suboxone refilled for 8mg daily -Discussed with him relapse prevention -Follow up 1 week Medications: Changed From buprenorphine-naloxone 8-2 mg 1 film buccal BID 14 ea 0RF To buprenorphine-naloxone 8-2 mg 1 film buccal DAILY 7 ea 0RF Discontinued buprenorphine-naloxone 4-[address] 1 strip/tab under (each) side of tongue Discontinued Reason: None 1 film buccal Q24H 7 ea 0RF Coding Level of Care Code Est Pt Level 3 (83241) Diagnoses Opioid use disorder F11.90
[2023-05-19 16:10] VITALS: BP 122/84; PULSE 84; O2SAT 97
== END 2023-05-19 16:26 | disposition home or self-care (01) ==
PROVIDERS: PCP Family Medicine; Visit Provider Nurse Practitioner Family
DX: F11.90 Opioid use, unspecified, uncomplicated (principal)
CPT/HCPCS: 99213

== ENCOUNTER → 2023-05-19 16:01 | Outpatient (BNVA) | payer MEDICAID, SELFPAY | PROVIDERS: PCP Family Medicine; Visit Provider Nurse Practitioner Family | DX: F11.20 Opioid dependence, uncomplicated (principal) | CPT/HCPCS: 99212 ==

== ENCOUNTER 2023-05-26 14:15 | Outpatient (AMB) | payer MEDICAID, SELFPAY ==
[2023-05-26 14:20] VITALS: BP 160/80; PULSE 65; RESP 18; O2SAT 98
--- NOTE | 2023-05-26 14:20 | A.OFFVISCC_ITS ---
Intake Vital Signs 05/26/23 14:20 BP 160/80 H Blood Pressure Location Lt brachial Position Sitting Respiration 18 Pulse 65 Pulse Oximetry (%) 98 Oxygen Delivery Method Room Air Intake Visit Reasons: mat visit Allergies No Known Allergies Allergy (Verified 05/19/23 16:11) HPI mat visit HPI Details Patient presents for OUD treatment and follow up He has been taking 8mg suboxone daily with good effect Reports his was still actively using and he gave her an ultimatum 5 days ago drugs or your family He states she walked out and has not been back since He has no concerns about recovery, denies cravings, withdrawal symptoms, or dreams of using [facility] Medical History (Updated 04/27/23 @ 13:57 by Jamin James MD) Opioid use disorder Mood disorder Opiate addiction Nephrolithiasis Social History Household Members: Children and Other Household Members Other:: girlfriend Housing: House Do you presently have visiting nurse or other home services: No Patient Tobacco Use Status: Never used Tobacco Substance Use Type: Heroin service: No Review of Systems Const Reports as per HPI Physical Exam Vital Signs: Last Vital Signs Pulse 65 05/26/23 14:20 Resp 18 05/26/23 14:20 BP 160/80 H 05/26/23 14:20 Pulse Ox 98 05/26/23 14:20 Oxygen Delivery Method Room Air 05/26/23 14:20 Const General: cooperative and healthy appearing Resp Effort & Inspection: normal respiratory effort Psych Appearance: grossly normal Mental Status: mental status grossly normal Speech and movement: Normal speech and movement present Affect: normal affect Attitude: cooperative Thought content: Normal thought content present Assessment & Plan Assessment & Plan (1) Opioid use disorder: Code(s): F11.90 - Opioid use, unspecified, uncomplicated Plan: -Mass pat reviewed -Continue suboxone 8mg daily -Follow up 2 weeks -Encouraged him to phone clinic if he needs to be seen Medications: Refilled buprenorphine-naloxone 8-2 mg 1 film buccal DAILY 7 ea 0RF Coding Level of Care Code Est Pt Level 3 (80081) Diagnoses Opioid use disorder F11.90
== END 2023-05-26 14:41 | disposition home or self-care (01) ==
PROVIDERS: PCP Family Medicine; Visit Provider Nurse Practitioner Family
DX: F11.90 Opioid use, unspecified, uncomplicated (principal)
CPT/HCPCS: 99213

== ENCOUNTER → 2023-05-26 14:15 | Outpatient (BNVA) | payer MEDICAID, SELFPAY | PROVIDERS: PCP Family Medicine; Visit Provider Nurse Practitioner Family | DX: F11.20 Opioid dependence, uncomplicated (principal) | CPT/HCPCS: 99212 ==

== ENCOUNTER 2023-05-30 21:06 | Emergency (ER) | payer MEDICAID, SELFPAY ==
--- NOTE | ~2023-05-30 | FL_ITS ---
EXAMINATION: XR FLUOROSCOPY WITH IMAGES CLINICAL INFORMATION: Stent placement COMPARISON: CT of abdomen from 05/30/2023 TECHNIQUE: Fluoroscopy Supervised By: Dr. Christopher Skelton. Fluoroscopy Time: 24.7 seconds. Cumulative Dose: 10.37 mGy.. Images: 2. FINDINGS: 2 images obtained by C-arm camera, showing left ureteral stent placement FL/FL guidance in OR IMPRESSION: Fluoroscopic assistance
--- NOTE | ~2023-05-30 | CT_ITS ---
EXAMINATION: CT ABDOMEN AND PELVIS WITHOUT CONTRAST CLINICAL INFORMATION: Left-sided abdominal pain, rule out kidney stone COMPARISON: None available. TECHNIQUE: Multidetector volumetric imaging was performed from the superior aspect of the liver through the pubic symphysis. Sagittal and coronal reformatted images were obtained on the technologist's workstation. This CT examination was performed using dose optimization techniques as appropriate, variously including the following: *Automated exposure control *Adjustment of mA and/or kV according to patient size (this includes techniques or standardized protocols for targeted exams where dose is matched to indication/reason for exam; i.e. extremities or head) *Use of iterative reconstruction technique DLP: 782 mGy-cm FINDINGS: LUNG BASES: The visualized lung bases are unremarkable. LIVER, GALLBLADDER, AND BILIARY TREE: The liver is normal in size, shape, and attenuation. No focal hepatic lesion or biliary ductal dilatation is identified on this noncontrast exam. Proximal gallstone is noted. No appreciable gallbladder wall thickening or surrounding inflammation. PANCREAS: Moderate fatty atrophy. SPLEEN: Unremarkable. ADRENAL GLANDS: Unremarkable. KIDNEYS AND URETERS: There are a few calculi in the distal left ureter just above the ureterovesicular junction, largest measuring up to 10 mm. There is associated left-sided moderate hydroureteronephrosis and perinephric stranding. Clustered small calcifications are present in the left lower pole. No right-sided hydronephrosis or obstructing calculus. There are several scattered calculi in the right kidney measuring up to 16 mm in the lower pole. BLADDER: Mildly distended and otherwise unremarkable. GASTROINTESTINAL TRACT: No evidence of bowel obstruction. Limited evaluation for colonic wall thickening in some segments due to luminal collapse. No free fluid or free air is seen. ABDOMINAL WALL: No significant hernia is appreciated. LYMPH NODES: Normal. VASCULAR: Unremarkable. PELVIC VISCERA: Unremarkable. OSSEOUS STRUCTURES: Mild scattered degenerative changes in the spine. CT/CT abdomen pelvis wo IV con IMPRESSION: 1. Few calculi in the distal left ureter just above the ureterovesicular junction, largest measuring up to 10 mm, with associated moderate hydroureteronephrosis. 2. Several right renal calculi measuring up to 16 mm in the lower pole. 3. Cholelithiasis.
[2023-05-30 21:14] VITALS: BP 152/105; PULSE 77; RESP 20; TEMP 37.1; O2SAT 96; BMI 34.7
[2023-05-30 21:36] LABS: MANUAL DIFF FLAG NO
[2023-05-30 21:39] LABS: Appearance Urine Clear; Basophils Absolute Auto 0.1 X10*3/uL (0.0-0.2); Basophils Percent Auto 0.5 % (0-2); Color Urine Yellow; Eosinophils Absolute Auto 0.2 X10*3/uL (0.0-0.4); Eosinophils Percent Auto 1.3 % (0-4); Glucose Urine UA Negative (Negative); Hematocrit 43.2 % (42.0-52.0); Imm Gran Abs Auto 0.04 X10*3/uL (0.00-0.03); Imm Gran Pct Auto 0.3 % (0.0-0.4); Leukocyte Esterase Urine Small (1+) (Negative); Lymphocytes Absolute Auto 3.2 X10*3/uL (1.2-4.9); Lymphocytes Percent Auto 27.2 % (20-40); Mean Corpuscular HGB Conc 34.7 g/dl (31.0-36.0); Mean Corpuscular Hemoglobin 28.3 pg (27.0-33.0); Mean Corpuscular Volume 81.5 fL (80.0-98.0); Mean Platelet Volume 10.5 fL (9.4-12.4); Monocytes Absolute Auto 1.2 X10*3/uL (0.1-1.2); Monocytes Percent Auto 10.1 % (2-11); Neutrophils Absolute Auto 7.1 x10*3/uL (2.0-8.3); Neutrophils Percent Auto 60.6 % (45-73); Nitrite Urine Negative (Negative); PH 6.5 (5.0-9.0); Platelet Count 214 X10*3/uL (160-400); Red Cell Distribution Width 12.6 % (11.0-16.0); Specific Gravity - Urine 1.015 (1.005-1.025); UMIC TRIGGER UACC YES; Urine Blood Small (1+) (Negative); Urine Ketones Negative (Negative); Urine Protein Negative (Neg-Trace); White Blood Count 11.7 X10*3/uL (4.8-10.8)
[2023-05-30 21:56] LABS: Alanine Aminotransferase 14 U/L (0-40); Albumin Level 4.2 g/dL (3.5-5.0); Alkaline Phosphatase 140 U/L (39-117); Anion Gap 11 (12-20); Aspartate Amino Transferase 12 U/L (5-37); Bilirubin Total 0.5 mg/dL (0.0-1.0); Blood Urea Nitrogen 12 mg/dL (9-16); Calcium 10.6 mg/dL (8.4-10.2); Carbon Dioxide 24 mmol/L (22-29); Chloride 111 mmol/L (96-108); Estimated Glomerular Filt Rate > 60; Glucose Random 95 mg/dL (60-115); Potassium 3.9 mmol/L (3.3-5.1); Sodium 142 mmol/L (135-145); Total Protein 6.7 g/dL (6.5-8.0)
[2023-05-30 22:08] LABS: Bacteria Urine None Seen (None Seen); Calcium Oxalate Crystals Urine Present; Hyaline Casts Urine 0-2 /LPF (0-2); Squamous Epithelial Cell Urine 0-2 /HPF (0-2); UACC Culture Trigger YES
--- NOTE | 2023-05-30 23:28 | ED_ITS ---
HPI - Abdominal Pain General Chief Complaint: Abdominal Pain Stated Complaint: abd and lower back pain ? kidney stone Time Seen by Provider: 05/30/23 23:16 Source: patient Mode of arrival: ambulatory Limitations: no limitations History of Present Illness HPI narrative: 42-year-old male history hyperparathyroidism, hypercalcemia, kidney stone presented with 1 day of left lower abdominal pain that radiates to the left flank area associated with nausea and vomiting since yesterday. Patient is a former drug abuse has been sober for 2 months. Related Data Previous Rx's Medication Instructions Recorded cyclobenzaprine 10 mg tablet 10 mg PO TID PRN muscle spasm #21 04/15/23 tabs dicyclomine 20 mg tablet 20 mg PO QID PRN abdominal pain 04/15/23 #30 tabs ondansetron 4 mg disintegrating 4 mg PO Q8H PRN nausea and 04/15/23 tablet vomiting #21 tabs buprenorphine 8 mg-naloxone 2 mg 1 film buccal DAILY #7 ea 05/26/23 sublingual film cinacalcet 30 mg tablet 30 mg PO BID 30 days #60 tabs 05/26/23 Allergies Allergy/AdvReac Type Severity Reaction Status Date / Time No Known Allergies Allergy Verified 05/30/23 21:17 Review of Systems Review of Systems All other systems are reviewed and are negative Constitutional: Reports as per HPI and Reports no additional constitutional complaints Eyes: Reports as per HPI and Reports no additional eye complaints Reports system reviewed and no additional complaints, except as documented Cardiovascular: Reports as per HPI and Reports no additional cardiovascular complaints Respiratory: Reports as per HPI and Reports no additional respiratory complaints Gastrointestinal: Reports as per HPI and Reports no additional gastrointestinal complaints Genitourinary: Reports no additional female genitourinary complaints Musculoskeletal: Reports no additional musculoskeletal complaints Skin/Breast: Reports system reviewed and no additional complaints, except as docu Psychiatric: Reports no additional psychiatric complaints Endocrine: Reports no additional endocrine complaints Hematologic/Lymphatic: Reports no additional hematologic/lymphatic complaints Allergic/Immunologic: Reports no additional allergic/immunologic complaints Reports system reviewed and no additional complaints, except as documented and Reports Abnormal speech present [facility] Past Medical History Medical History Opioid use disorder Mood disorder Opiate addiction Nephrolithiasis Social History Social History Household Members: Children and Other Household Members Other:: girlfriend Housing: House Do you presently have visiting nurse or other home services: No Patient Tobacco Use Status: Never used Tobacco Substance Use Type: Heroin Advance Directives: No Advance Directives Information Provided: No service: No Physical Exam ED Vital Signs: Vital Signs - 24 hr 05/30/23 21:14 05/31/23 00:19 Temperature 98.7 F 98.2 F Pulse Rate 77 70 Respiratory Rate 20 19 Blood Pressure 152/105 H 142/84 H Pulse Oximetry 96 97 Oxygen Delivery Method Room Air Room Air BMI result Body Mass Index 34.7 Vital signs have been reviewed and appear to be correct. Blood pressure elevated. Heart rate normal. Respiratory rate normal. Temperature normal. Oxygen saturation normal. Appearance: Alert. Oriented X3. No acute distress. Head: Normal external exam. Normocephalic. Atraumatic. No Kilpatrick signs noted. No raccoon eyes noted Eyes: PERRLA. EOMI. Conjunctiva and sclera normal. Eyelids normal. ENT: TM's Normal. Pharynx normal. Uvula midline. Moist mucous membranes. No trismus noted. No drooling noted. No muffled voice noted. Neck: Normal inspection. Neck supple. FROM. No adenopathy. Thyroid Normal. No meningeal signs. No neck mass noted. CVS: Normal heart rate and rhythm. Heart sound normal. No murmurs noted. Pulses normal throughout. Respiratory: No respiratory distress. Painless inspiration. Breath sounds normal. No wheezes/rales/rhonchi noted. Chest nontender. No accessory muscle usage noted or decreased air movement noted. Abdomen: Soft, left lower quadrant tenderness, no rebound tenderness. Bowel sounds normal in all 4 quadrants. No distention noted. No organomegaly noted. No visible injury noted. Back: Left CVA tenderness. Full range of motion noted. Skin: Skin warm and dry. Normal skin color. Normal skin turgor. No rashes/lesions/lacerations noted. Extremities: No lower extremity edema. Extremities exhibit normal range of motion. Extremities nontender. Neuro: Oriented X 3. Cranial nerve exam: II-XII are grossly intact No motor deficit. No sensory deficit. Reflexes normal. Course Reevaluation(s) Reevaluation #1: Former narcotic abuser with severe left-sided abdominal pain due to multiple kidney stones the biggest is 10 mm with hydronephrosis, still await for Dr. Skelton to call back, case signed out to Dr. Wallace. Time: 01:55 Medical Decision Making Differential Diagnosis Differential Diagnoses: The differential diagnosis associated with the presentation includes (Left renal colic, obstructive ureteric stone, pain management control, diverticulitis, colitis, electrolyte derangement, severe anemia.) Admission/Observation Consideration of admission/observation: Escalation of care including admission/observation considered Consult Healthcare Provider Management of the patient was discussed with: Flight Information Expediter (Dr. Skelton.) Lab Data MDM Lab Attestation statement: I reviewed the patient's lab results. 05/30/23 21:32 05/30/23 21:32 Labs: Lab Results 05/30/23 Range/Units 21:32 WBC 11.7 H (4.8-10.8) X10*3/uL RBC 5.30 (4.60-5.80) X10*6/uL Hgb 15.0 (14.0-18.0) g/dl Hct 43.2 (42.0-52.0) % MCV 81.5 (80.0-98.0) fL MCH 28.3 (27.0-33.0) pg MCHC 34.7 (31.0-36.0) g/dl RDW 12.6 (11.0-16.0) % Plt Count 214 (160-400) X10*3/uL MPV 10.5 (9.4-12.4) fL Immature Gran % (Auto) 0.3 (0.0-0.4) % Neut % (Auto) 60.6 (45-73) % Lymph % (Auto) 27.2 (20-40) % [place] % (Auto) 10.1 (2-11) % Eos % (Auto) 1.3 (0-4) % Baso % (Auto) 0.5 (0-2) % Lymph # (Auto) 3.2 (1.2-4.9) X10*3/uL [place] # (Auto) 1.2 (0.1-1.2) X10*3/uL Eos # (Auto) 0.2 (0.0-0.4) X10*3/uL Baso # (Auto) 0.1 (0.0-0.2) X10*3/uL Abs Immat Gran (auto) 0.04 H (0.00-0.03) X10*3/uL Absolute Neuts (auto) 7.1 (2.0-8.3) x10*3/uL Absolute Nucleated RBC 0.000 (0.0-0.012) X10*3/uL Nucleated RBC % (auto) 0.0 (0.0-0.2) /100WBC Sodium 142 (135-145) mmol/L Potassium 3.9 (3.3-5.1) mmol/L Chloride 111 H (96-108) mmol/L Carbon Dioxide 24 (22-29) mmol/L Anion Gap 11 L (12-20) BUN 12 (9-16) mg/dL Creatinine 0.98 (0.5-1.4) mg/dL Estim Creat Clear Calc 130.0 Estimated GFR > 60 Random Glucose 95 (60-115) mg/dL Calcium 10.6 H D (8.4-10.2) mg/dL Total Bilirubin 0.5 (0.0-1.0) mg/dL AST 12 (5-37) U/L ALT 14 (0-40) U/L Alkaline Phosphatase 140 H (39-117) U/L Total Protein 6.7 (6.5-8.0) g/dL Albumin 4.2 (3.5-5.0) g/dL Urine Color Yellow Urine Appearance Clear Urine pH 6.5 (5.0-9.0) Ur Specific [place] 1.015 (1.005-1.025) Urine Protein Negative (Neg-Trace) mg/dL Urine Glucose (UA) Negative (Negative) mg/dL Urine Ketones Negative (Negative) mg/dL Urine Blood Small (1+) H (Negative) Urine Nitrite Negative (Negative) Ur Leukocyte Esterase Small (1+) H (Negative) Urine RBC 3-5 H (0-2) /HPF Urine WBC 6-10 (0-5) /HPF Ur Squamous Epith Cells 0-2 (0-2) /HPF Calcium Oxalate Crystal Present Urine Bacteria None Seen (None Seen) Hyaline Casts 0-2 (0-2) /LPF Independent Interpretation I performed an independent interpretation of an: CT Scan (Abdomen and pelvis:1. Few calculi in the distal left ureter just above the ureterovesicular junction, largest measuring up to 10 mm, with associated moderate hydroureteronephrosis. 2. Several right renal calculi measuring up to 16 mm in the lower pole. 3. Cholelithiasis. ) Radiology Impression Discussion of test interpretation with radiology: I have reviewed the radiologist's reading. Chronic Conditions Patient?s care impacted by: Other (Hyperparathyroidism and hypercalcemia) Critical Care Time Critical Care Time Critical Care Time: Yes Total Critical Care Time: 45 Attestation: I spent 45 minutes providing critical care service to the patient, this including time spent at the bedside to evaluate the patient, reassess the patient, monitoring vital signs, review labs, and radiographic studies, counseling the patient/family, discussing the case with consultants, disposition the patient. Discharge Plan Discharge Clinical Impression: Renal colic, Calculus of left ureter Patient Disposition: Still a Patient Prescriptions: No Action cinacalcet 30 mg tablet 30 mg PO BID 30 Days Qty: 60 3RF ondansetron 4 mg tablet,disintegrating 4 mg PO Q8H PRN (Reason: nausea and vomiting) Qty: 21 0RF dicyclomine 20 mg tablet 20 mg PO QID PRN (Reason: abdominal pain) Qty: 30 0RF cyclobenzaprine 10 mg tablet 10 mg PO TID PRN (Reason: muscle spasm) Qty: 21 0RF buprenorphine-naloxone 8-2 mg film 1 film buccal DAILY Qty: 7 0RF
[2023-05-31] VITALS (11 sets, daily range): BP systolic 126–173; BP diastolic 72–96; PULSE 62–86; RESP 14–20; TEMP 36.2–37.2; O2SAT 97–100
--- NOTE | 2023-05-31 01:06 | PC.NURSE ---
Medication administration delayed due to failed multiple attempts at obtaining IV access. MD aware and at bedside with u/s machine.
--- NOTE | 2023-05-31 02:00 | PC.NURSE ---
EJ placed on the left side of the neck by following multiple failed attempts to obtain IV access including U/S. Pt tolerated well.
[2023-05-31] MEDS: Ketorolac Tromethamine 30 MG/ML VIAL IVPUSH (02:07)
[2023-05-31] MEDS: 0.9 % Sodium Chloride 1,000 ML 999 ML IV (02:07)
[2023-05-31] MEDS: ondansetron HCL 4 MG/2 ML VIAL IVPUSH (02:08)
--- NOTE | 2023-05-31 08:28 | PC.NURSE ---
pt is a/o x 4 no sob dameon noted speaks in full sentences. denies any pain/disc at this time. pt has an #20 ej on l neck. pt aware of plan of care for admission.
--- NOTE | 2023-05-31 08:40 | PC.NURSE ---
RN TO RN REPORT GIVEN TO JOSIANE IN SURGERY. PT AWARE OF PLAN OF CARE.
--- NOTE | 2023-05-31 08:46 | P.CNUR_ITS ---
History of Present Illness Consult details Consult date: 05/31/23 Narrative: CC: Left distal ureteric stone 42-year-old male Present with 24 hour history of left lower quadrant pain Associated with nausea and vomiting Pain till 8/10 with minimal relieving factors Prior history stone formation No prior intervention for stone passage CT - Few calculi in the distal left ureter just above the ureterovesicular junction, largest measuring up to 10 mm, with associated moderate hydroureteronephrosis WBC 11.7, calcium 10.6, creatinine 0.98 Had been undergoing evaluation with Nephrology for hyperparathyroidism PTH 482 Recommend surgical intervention for distal left ureteric stone with stent Will also need ESWL on right side Should complete 24 hour urine with referral to Endocrine surgery Review of Systems 2 Constitutional: Constitutional: Reports as per HPI and Reports no additional constitutional complaints Cardiovascular: Cardiovascular: Reports as per HPI and Reports no additional cardiovascular complaints Respiratory: Respiratory: Reports as per HPI and Reports no additional respiratory complaints Gastrointestinal: Gastrointestinal: Reports as per HPI and Reports no additional gastrointestinal complaints Genitourinary: Genitourinary: Reports as per HPI Musculoskeletal: Musculoskeletal: Reports no additional musculoskeletal complaints and Reports as per HPI Neurologic: Reports system reviewed and no additional complaints, except as documented and Reports as per HPI PMFSH Past Medical History Medical History Opioid use disorder Mood disorder Opiate addiction Nephrolithiasis Social History Social History Household Members: Children and Other Household Members Other:: girlfriend Housing: House Do you presently have visiting nurse or other home services: No Patient Tobacco Use Status: Never used Tobacco Smoked in Last 30 Days: No Use of substances other than those prescribed or required for medical reasons: No Substance Use Type: Heroin Advance Directives: No Advance Directives Information Provided: No service: No Meds Allergies Allergy/AdvReac Type Severity Reaction Status Date / Time No Known Allergies Allergy Verified 05/30/23 21:17 Active Medications: Current Medications Levofloxacin (Levaquin) 500 mg in 100 mls @ 100 mls/hr IV PREOP ONE Stop: 05/31/23 09:41 Acetaminophen (Ofirmev) 1,000 mg in 100 mls @ 400 mls/hr IV PREOP ONE Stop: 03/03/24 08:59 Physical Exam 2 Vital Signs: Vital Signs: Last Vital Signs Temp 98.0 F 05/31/23 08:00 Pulse 74 05/31/23 08:00 Resp 20 05/31/23 08:00 BP 143/96 H 05/31/23 08:00 Pulse Ox 98 05/31/23 08:00 O2 Del Method Room Air 05/31/23 08:00 BMI result Body Mass Index 34.7 Const: General: cooperative, healthy appearing, comfortable and no acute distress Orientation/consciousness: patient oriented x3 HEENT: Face and sinus: Yes normal facial exam Mouth: moist mucous membranes Neck: Neck: Yes normal visual inspection, Yes full ROM and Yes trachea midline Chest: Chest palpation & inspection: normal inspection of the chest Resp: Effort & Inspection: normal respiratory effort, able to speak in complete sentences and no respiratory distress GI: Inspection: Yes normal to inspection Back/Spine/Pelvis: Cervical Spine: normal cervical lordosis Thoracic/Lumbar Spine: thoracic and lumbar spine normal to inspection Skin: General skin exam: no rashes or lesions noted Neuro: General: patient oriented x3, tone normal and moves all extremities Extrem: General: Yes normal to inspection and Yes capillary refill normal Results Labs 05/30/23 21:32 05/30/23 21:32 Labs: Abnormal lab results 05/30/23 Range/Units 21:32 WBC 11.7 H (4.8-10.8) X10*3/uL Abs Immat Gran (auto) 0.04 H (0.00-0.03) X10*3/uL Chloride 111 H (96-108) mmol/L Anion Gap 11 L (12-20) Calcium 10.6 H D (8.4-10.2) mg/dL Alkaline Phosphatase 140 H (39-117) U/L Urine Blood Small (1+) H (Negative) Ur Leukocyte Esterase Small (1+) H (Negative) Urine RBC 3-5 H (0-2) /HPF Short CBC 05/30/23 Range/Units 21:32 WBC 11.7 H (4.8-10.8) X10*3/uL Hgb 15.0 (14.0-18.0) g/dl Hct 43.2 (42.0-52.0) % Plt Count 214 (160-400) X10*3/uL BMP 05/30/23 21:32 Sodium 142 Potassium 3.9 Chloride 111 H Carbon Dioxide 24 BUN 12 Creatinine 0.98 Calcium 10.6 H D Liver Function 05/30/23 Range/Units 21:32 Total Bilirubin 0.5 (0.0-1.0) mg/dL AST 12 (5-37) U/L ALT 14 (0-40) U/L Alkaline Phosphatase 140 H (39-117) U/L Albumin 4.2 (3.5-5.0) g/dL Urine 05/30/23 Range/Units 21:32 Urine Color Yellow Urine Appearance Clear Urine pH 6.5 (5.0-9.0) Ur Specific [place] 1.015 (1.005-1.025) Urine Protein Negative (Neg-Trace) mg/dL Urine Glucose (UA) Negative (Negative) mg/dL All other labs normal. Assessment and Plan (1) Calculus of left ureter: Status: Acute Plan Ureteroscopy We discussed the nature of the decision and reasonable alternatives for performing ureteroscopy. Options such as medical therapy were discussed. Interventions include chemical dissolution, ESWL, ureteroscopy with laser lithotripsy and stent placement, PCNL. The relative uncertainties and benefits related to each alternate procedure were adequately discussed. General surgical risks including, but not limited to - pain, bleeding, infection, myocardial infarction, pulmonary embolus, deep vein thrombosis and cerebrovascular accident which may result in further hospitalization were discussed. Full disclosure of the procedure as well as all major risks, benefits and complications were discussed including but not limited to damage to the urethra, bladder and kidney infection, damage to the ureter, stent migration or malposition, scarring to the renal pelvis, remnant stone fragments, subsequent stone passage with need for secondary procedures. The overall secondary procedure rate is approximately 10-15%. The overall clearance rate is approximately 90-95%. Success of the procedure in the short-term does not necessarily guarantee that long-term success will be maintained. Suitable follow up will need to be maintained. The patient showed understanding of discussion and wishes to proceed with - cystoscopy, retrograde, ureteroscopy, possible lithotripsy/stone basketing and stent on the left side Procedures Date of Service Date of Service: 05/31/23
--- NOTE | 2023-05-31 08:50 | PC.NURSE ---
PT REFUSED TO TAKE IN LOWER STRE[address] GARMENTS OFF UNTIL HE GET TRANSFERED TO THE OR.
--- NOTE | 2023-05-31 08:52 | MHC.SHP ---
Pre-Procedural Eval Section A - 24 Hr Update-Section A only Date of Service: 05/31/23 The patient is an INPATIENT: Yes Changes since office visit: No Cold of Flu in the past 2 weeks, No New Medical Problems, No Changes in Medication and No Patient answered all questions The patient has been examined within 24 hours of the surgical procedure. The History & Physical has been completed within 30 days and I have reviewed it.: Yes Section B - Complete if H&P > 30 days Chief Complaint: abd and lower back pain ? kidney stone Allergies: Allergies Allergy/AdvReac Type Severity Reaction Status Date / Time No Known Allergies Allergy Verified 05/30/23 21:17 Review of Systems Sugical H&P ROS: Negative: Constitution, Cardiovascular, Respiratory, Neurological, Psychiatric, Hem-Onc, Allergic/Immunologic, Gastrointestinal, Genitourinary, Musculoskeletal, Integumentary, Endocrine and Eyes/Ears/Nose/Throat Exam Surgical H&P Exam: Normal: HEENT, Normal: Heart, Normal: Lungs, Normal: Extremities, Normal: Abdomen, Normal: Skin and Normal: Neurological Plan Diagnosis/Plan: Unchanged (Cystoscopy, left retrograde, left ureteroscopy with laser lithotripsy and stent placed) I have reviewed the history and physical and performed a pertinent physical examination on my patient. No changes have occurred unless specified. Time Spent With Patient Time: Total time managing care of this patient today ____ minutes.
--- NOTE | 2023-05-31 09:25 | PHA.MEDREC ---
Pharmacy Consult ? Medication Reconciliation Pharmacy has completed the medication reconciliation. spoke to patient to confirm medication. 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 Patient reports that he uses a half film as needed and last had on May 28.
--- NOTE | 2023-05-31 09:54 | P.OP_ITS ---
Operative Note Operative Note Date of Service: 05/31/23 Narrative: PreOperative Diagnosis: Distal left ureteric stone Post Operative Diagnosis: Distal left ureteric stone with hydroureteronephrosis Procedure: - cystoscopy, left retrograde - left dilatation of ureteric orifice under fluoroscopy - left ureteroscopy, laser lithotripsy, stone basketing - left stent placement Surgeon: Dr Christopher Skelton Anesthesia: General Indications for procedure: Distal left ureteric stone presentation through emergency room. [address] scan with proximal left hydroureteronephrosis Procedure: After informed consent was verified patient was brought to the operating placed in supine position. Anesthesia was administered per protocol. Patient was placed in modified dorsal lithotomy position and prepped and draped in a sterile fashion. Safety pause time-out and side of surgery confirmed. Antibiotics confirmed. 22 [place] cystoscope was inserted per urethra. Bladder was normal in its entirety. Both ureteric orifices were in normal position. The left ureteric orifice was cannulated and a retrograde examination was performed. Filling defect distal left ureter with proximal hydroureteronephrosis. A Sensor guidewire was placed up to the level of the renal pelvis under fluoroscopy. The rigid cystoscope was removed a rigid ureteral scope was placed alongside the wire. Stones were encountered within 1 cm of the ureteric orifice. Using the holmium laser with a fiber 360 the stone was broken into small pieces. The pieces were then removed from the ureter using a flat wire basket At the completion of the stone procedure a Sensor wire was placed back into the renal pelvis. The rigid cystoscope was backloaded over the wire and advanced into the bladder. A 6 [place] by variable length cm double-J stent was placed into the renal pelvis and bladder under a combination of fluoroscopy and direct visualization. The bladder was emptied. The patient tolerated the procedure well and was extubated in the operating room, and transferred in stable condition to the recovery area. Pathology: Stones Drains: Stent as above
--- NOTE | 2023-05-31 10:08 | HO.ANESPROP2 ---
ON LICENSE OF [facility] Active Problems Active Problems: All Active Problems (Updated 05/31/23 @ 01:59 by Sherrell Poole MD) Calculus of left ureter (Acute) Renal colic (Acute) Hyperparathyroidism (Acute) Opioid use disorder (Acute) Hypokalemia (Acute) Establishing care with new doctor, encounter for (Acute) Nephrolithiasis (Acute) Past Medical History Medical History Opioid use disorder Mood disorder Opiate addiction Nephrolithiasis Family History Family history of problems with anesthesia: No Surgical History History of Problems with Anesthesia: No Social History Social History Household Members: Children and Other Household Members Other:: girlfriend Housing: House Do you presently have visiting nurse or other home services: No Patient Tobacco Use Status: Never used Tobacco Substance Use Type: Heroin service: No Meds Allergies Allergy/AdvReac Type Severity Reaction Status Date / Time No Known Allergies Allergy Verified 05/30/23 21:17 Home Medications Medication Instructions Recorded Confirmed Last Taken Type buprenorphine 8 mg-naloxone 2 mg 0.5 film buccal DAILY PRN 05/31/23 05/31/23 05/29/23 History sublingual film Withdrawal Symptoms Exam Height,Weight and Vital Signs: Height 6 ft 1 in Weight 119.2 kg Last Vital Signs Temp 98.0 F 05/31/23 08:00 Pulse 74 05/31/23 08:00 Resp 20 05/31/23 08:00 BP 143/96 H 05/31/23 08:00 Pulse Ox 98 05/31/23 08:00 O2 Del Method Room Air 05/31/23 08:00 Pertinent Lab Results Pertinent Lab Results: Laboratory Tests 05/30/23 21:32 WBC 11.7 H RBC 5.30 Hgb 15.0 Hct 43.2 MCV 81.5 MCH 28.3 MCHC 34.7 RDW 12.6 Plt Count 214 MPV 10.5 Immature Gran % (Auto) 0.3 Neut % (Auto) 60.6 Lymph % (Auto) 27.2 [place]le % (Auto) 10.1 Eos % (Auto) 1.3 Baso % (Auto) 0.5 Lymph # (Auto) 3.2 [place] # (Auto) 1.2 Eos # (Auto) 0.2 Baso # (Auto) 0.1 Abs Immat Gran (auto) 0.04 H Absolute Neuts (auto) 7.1 Absolute Nucleated RBC 0.000 Nucleated RBC % (auto) 0.0 Sodium 142 Potassium 3.9 Chloride 111 H Carbon Dioxide 24 Anion Gap 11 L BUN 12 Creatinine 0.98 Estim Creat Clear Calc 130.0 Estimated GFR > 60 Random Glucose 95 Calcium 10.6 H D Total Bilirubin 0.5 AST 12 ALT 14 Alkaline Phosphatase 140 H Total Protein 6.7 Albumin 4.2 Urine Color Yellow Urine Appearance Clear Urine pH 6.5 Ur Specific [place] 1.015 Urine Protein Negative Urine Glucose (UA) Negative Urine Ketones Negative Urine Blood Small (1+) H Urine Nitrite Negative Ur Leukocyte Esterase Small (1+) H Urine RBC 3-5 H Urine WBC 6-10 Ur Squamous Epith Cells 0-2 Calcium Oxalate Crystal Present Urine Bacteria None Seen Hyaline Casts 0-2 Airway Mallampati Class: III TM Dist: >3cm Neck ROM: Full Assessment and Plan Assessment Anesthesia Assessment: Anesthesia Plan Discussed and Chart Reviewed Final Anesthetic Review Family History of Problems with Anesthesia: No History of Problems with Anesthesia: No NPO: Yes ASA Class: III and Emergency Final Preanesthetic Review: No Changes in Pt Med Stat, Meds/Allgs Chart Reviewed, Consent Obtained/Reviewed and Anes Risks/Benef Reviewed Patient Risk: Intermediate Procedure Risk: Low Anesthetic Plan Anesthetic Plan: GA Disposition: Standard PACU
[2023-05-31] MEDS: Phenazopyridine HCL 100 MG TABLET PO (10:37)
[2023-06-10 19:48] LABS: Stone Source LEFT URETERAL STONE
== END 2023-05-31 10:30 | disposition home or self-care (01) ==
PROVIDERS: Emergency Medicine; Urology; Emergency Provider Internal Medicine; PCP Family Medicine
PROC: (CPT 52356; principal; 2023-05-31 08:00)
DX: N20.2 Calculus of kidney with calculus of ureter (principal); R10.32 Left lower quadrant pain; E21.3 Hyperparathyroidism, unspecified; R11.2 Nausea with vomiting, unspecified
CPT/HCPCS: 52356; 36415; 74176; 80053; 81001; 82365; 85025; 87086; 88300; 96361; 96374; 96375; 99285; C1758; C1769; J0131; J1100; J1885; J2250; J2405; J2704; J3010; Q9967

== ENCOUNTER → 2023-05-30 23:48 | Outpatient (BNV) | payer MEDICAID, SELFPAY | PROVIDERS: Emergency Provider Internal Medicine; PCP Family Medicine; Visit Provider Urology | DX: N20.1 Calculus of ureter (principal) | CPT/HCPCS: 52356; 99223 ==

== ENCOUNTER → 2023-06-04 07:50 | Outpatient (REF) | payer MEDICAID, SELFPAY ==
--- NOTE | 2023-06-01 13:52 | HO.POSTANES ---
Post Anesthesia Evaluation Post Anesthesia Evaluation Date of Service: 05/31/23 Vital Signs: Patient was discharged same day. Anesthesia: General Mental Status: Awake Pain Control: Satisfactory Nausea/Vomiting: None Hydration: Adequate Anesthesia-Related Issues: No Anes. Related Issues Comments: Patient was discharged same day.
== END ==
LOC: HO.NUCMED 07:50
PROVIDERS: PCP Family Medicine; Visit Provider Internal Medicine Hypertension Specialist
DX: Z13.89 Encounter for screening for other disorder (principal)

== ENCOUNTER 2023-06-22 14:37 | Outpatient (REF) | payer MEDICAID, SELFPAY ==
--- NOTE | ~2023-06-22 | US_ITS ---
EXAMINATION: US VENOUS ULTRASOUND WITH DOPPLER LOWER EXTREMITY, LEFT CLINICAL INFORMATION: Left leg swelling COMPARISON: None available. TECHNIQUE: Ultrasound of the deep veins is performed from the hip to the calf with compression sonography and color and pulse Doppler assessment. Spectral analysis with color-flow imaging is performed. FINDINGS: There is normal venous compression and respiratory variation and augmented flow. The visualized common femoral vein, superficial femoral vein, profunda femoral vein, popliteal vein, and the trifurcation region shows no evidence of deep venous thrombosis. There is no significant popliteal fossa cyst. There is superficial thrombophlebitis with noncompressible thrombus seen in the great saphenous vein in the mid calf significantly far from the saphenofemoral junction If the patient's symptoms persist, followup ultrasound in 5 days 7 days might be of value to exclude proximal propagation from a non-visualized calf vein. US/US venous duplex LE IMPRESSION: 1. No DVT demonstrated in the left lower extremity. 2. Superficial thrombophlebitis in the great saphenous vein in the mid calf.
== END 2023-06-22 14:38 | disposition home or self-care (01) ==
LOC: HO.US 14:37
PROVIDERS: PCP Family Medicine; Visit Provider Family Medicine
DX: M79.605 Pain in left leg (principal); R22.42 Localized swelling, mass and lump, left lower limb
CPT/HCPCS: 93971

== ENCOUNTER 2023-06-24 12:45 | Outpatient (AMB) | payer MEDICAID, SELFPAY ==
--- NOTE | 2023-06-24 12:46 | A.OFFVIS_ITS ---
Intake Intake Visit Reasons: Discuss next surgical procedure Intake Note: Patient presents today for a teleheath follow up to discuss surgical procedure Meds- None Allergies to Antibiotic- No Known Allergies Blood Thinner- Xarelto Patient stated he has not been taking his medications. Batch Analyst Required: No Allergies No Known Allergies Allergy (Verified 06/24/23 12:48) HPI HPI Comments History of Present Illness Details Score is a pleasant male. He is a patient of Dr. Gee. He seen for the following urologic conditions - nephrolithiasis - hyperparathyroidism Telemedicine Evaluation 15 min Consultation Doximity Rayo Video attempted Had initial presentation to the hospital 06/20 found with distal left ureteric stones and pain underwent stenting Discussed upcoming procedure for removal of left stent and distal and proximal ureteroscopy with laser lithotripsy Will need secondary procedure for right side Nephrolithiasis Bilateral stones Secondary to hyperparathyroidism with hypercalcemia 12, PTH 450 Has plan assessment for endocrine surgery On Cinacalcet Plan for sestamibi CT spect localization [facility] Medical History Opioid use disorder Mood disorder Opiate addiction Nephrolithiasis Social History Household Members: Children and Other Household Members Other:: girlfriend Housing: House Do you presently have visiting nurse or other home services: No Patient Tobacco Use Status: Never used Tobacco Substance Use Type: Heroin service: No Review of Systems Const All systems reviewed & are unremarkable except as noted in HPI and below Reports no additional complaints Resp Reports no additional complaints GI Reports no additional complaints Reports as per HPI Musc Reports no additional complaints Physical Exam Telemedicine evaluation Appropriate responses Regular breathing rate and rhythm HEENT Head: Yes normal to inspection Ears: hearing grossly normal bilaterally Eyes General: appearance normal, both eyes and all related structures Neck Neck: Yes normal visual inspection Chest Chest palpation & inspection: normal inspection of the chest Resp Effort & Inspection: normal respiratory effort and able to speak in complete sentences Assessment & Plan Assessment & Plan (1) Hyperparathyroidism: Code(s): E21.3 - Hyperparathyroidism, unspecified (2) Nephrolithiasis: Code(s): N20.0 - Calculus of kidney Plan Ureteroscopy We discussed the nature of the decision and reasonable alternatives for performing ureteroscopy. Options such as medical therapy were discussed. Interventions include chemical dissolution, ESWL, ureteroscopy with laser lithotripsy and stent placement, PCNL. The relative uncertainties and benefits related to each alternate procedure were adequately discussed. General surgical risks including, but not limited to - pain, bleeding, infection, myocardial infarction, pulmonary embolus, deep vein thrombosis and cerebrovascular accident which may result in further hospitalization were discussed. Full disclosure of the procedure as well as all major risks, benefits and complications were discussed including but not limited to damage to the urethra, bladder and kidney infection, damage to the ureter, stent migration or malposition, scarring to the renal pelvis, remnant stone fragments, subsequent stone passage with need for secondary procedures. The overall secondary procedure rate is approximately 10-15%. The overall clearance rate is approximately 90-95%. Success of the procedure in the short-term does not necessarily guarantee that long-term success will be maintained. Suitable follow up will need to be maintained. The patient showed understanding of discussion and wishes to proceed with - cystoscopy, retrograde, ureteroscopy, possible lithotripsy/stone basketing and stent on the left side Orders: Orders NM parathyroid SPECT w CT Today E21.3 - Hyperparathyroidism, unspecified Patient Instructions: Imaging studies, laboratory and physical exam results were discussed and reviewed in detail. No major barriers to patient understanding were identified. An opportunity to ask questions regarding the treatment plan was provided. All questions were answered. The patient expressed understanding and agreement with the above treatment plan. The patient is aware they should contact our office by phone for worsening of their current condition or the appearance of new urologic symptoms. Compliance is encouraged with any medications and followup testing that is ordered. It is a privilege to participate in the urologic care of your patient. If you have any questions or concerns regarding treatment for the above conditions, or other urologic issues, please do not hesitate to contact me. The office telephone contact is [phone]. This note is constructed using voice recognition software. While every effort has been made to ensure accuracy fare enforcement officer errors may have been included. Yours sincerely, Dr Christopher Skelton MD, [facility] - Urology Providers of Expert, Compassionate Care for the Genitourinary System Telehealth Telehealth Location of provider rendering services: practice address Location of patient: address on file Patient Identification confirmed using: Name, : Yes Telehealth method: video Patient verbally consented to treatment: Yes Patient verbally consented to billing insurance company: Yes Patient informed of any privacy concerns related to visit: Yes Coding Level of Care Code Tele Est Pt Level 4 (12178) Diagnoses Hyperparathyroidism E21.3 Nephrolithiasis N20.0
== END 2023-06-24 15:19 | disposition home or self-care (01) ==
LOC: HO.HUSH 12:45
PROVIDERS: PCP Family Medicine; Visit Provider Urology
DX: E21.3 Hyperparathyroidism, unspecified (principal); N20.0 Calculus of kidney
CPT/HCPCS: 99213

== ENCOUNTER → 2023-06-24 12:45 | Outpatient (BNVA) | payer MEDICAID, SELFPAY | PROVIDERS: PCP Family Medicine; Visit Provider Urology ==

== ENCOUNTER 2023-07-07 13:42 | Outpatient (REF) | payer MEDICAID, SELFPAY ==
[2023-07-07 13:57] LABS: MANUAL DIFF FLAG NO
[2023-07-07 14:17] LABS: Basophils Absolute Auto 0.1 X10*3/uL (0.0-0.2); Basophils Percent Auto 0.5 % (0-2); Eosinophils Absolute Auto 0.1 X10*3/uL (0.0-0.4); Eosinophils Percent Auto 1.3 % (0-4); Hematocrit 39.9 % (42.0-52.0); Hemoglobin 13.5 g/dl (14.0-18.0); Imm Gran Abs Auto 0.02 X10*3/uL (0.00-0.03); Imm Gran Pct Auto 0.2 % (0.0-0.4); Lymphocytes Absolute Auto 2.6 X10*3/uL (1.2-4.9); Lymphocytes Percent Auto 28.3 % (20-40); Mean Corpuscular HGB Conc 33.8 g/dl (31.0-36.0); Mean Corpuscular Hemoglobin 28.4 pg (27.0-33.0); Mean Platelet Volume 11.1 fL (9.4-12.4); Monocytes Absolute Auto 0.8 X10*3/uL (0.1-1.2); Monocytes Percent Auto 8.6 % (2-11); Neutrophils Absolute Auto 5.6 x10*3/uL (2.0-8.3); Neutrophils Percent Auto 61.1 % (45-73); Platelet Count 243 X10*3/uL (160-400); Red Blood Count 4.75 X10*6/uL (4.60-5.80); Red Cell Distribution Width 13.3 % (11.0-16.0); White Blood Count 9.2 X10*3/uL (4.8-10.8)
[2023-07-07 14:47] LABS: Parathyroid Hormone Intact 391.4 pg/mL (8.7-77.1)
[2023-07-07 14:52] LABS: Alanine Aminotransferase 24 U/L (0-40); Albumin Level 4.1 g/dL (3.5-5.0); Alkaline Phosphatase 138 U/L (39-117); Anion Gap 11 (12-20); Aspartate Amino Transferase 18 U/L (5-37); Bilirubin Total 0.3 mg/dL (0.0-1.0); Blood Urea Nitrogen 18 mg/dL (9-16); Calcium 10.5 mg/dL (8.4-10.2); Carbon Dioxide 25 mmol/L (22-29); Chloride 111 mmol/L (96-108); Cholesterol 157 mg/dL (<200); Estimated Glomerular Filt Rate > 60; Glucose Random 117 mg/dL (60-115); HDL Cholesterol 39 mg/dL (>40); LDL Cholesterol Calculated 83 mg/dL (<100); Magnesium 2.1 mg/dL (1.6-2.6); Potassium 4.1 mmol/L (3.3-5.1); Sodium 143 mmol/L (135-145); Total Protein 6.9 g/dL (6.5-8.0); Triglycerides 179 mg/dL (<150)
[2023-07-07 15:11] LABS: Vitamin D 25-OH Total 13.1 ng/mL (>30)
[2023-07-08 15:53] LABS: Calcium, Ionized 5.9 mg/dL (4.7-5.5)
== END 2023-07-07 13:43 | disposition home or self-care (01) ==
LOC: HO.LAB 13:42
PROVIDERS: Absent Provider Urology; PCP Family Medicine; Visit Provider Family Medicine
DX: R03.0 Elevated blood-pressure reading, without diagnosis of hypertension (principal); E21.3 Hyperparathyroidism, unspecified
CPT/HCPCS: 36415; 80053; 80061; 82306; 82330; 83735; 83970; 84443; 85025

== ENCOUNTER 2023-07-15 10:52 | Day surgery (SDC) | payer MEDICAID, SELFPAY ==
--- NOTE | ~2023-07-15 | XR_ITS ---
EXAMINATION: XR ABDOMEN KUB CLINICAL INDICATION: Right kidney stones, patient states she is having a procedure done today for kidney stones. COMPARISON: [facility] 04/14/2023. CT abdomen and pelvis 05/30/2023. TECHNIQUE: 3 AP views of the abdomen. FINDINGS: Left ureteral stent with proximal end overlying left kidney and distal end overlying pelvis. Multiple small pelvic calcifications are likely vascular. Redemonstration of 16 mm calculus overlying the right kidney. Redemonstration of clustered small calcifications overlying lower pole of left kidney. Visualization limited due to overlying bowel. Nonobstructive bowel gas pattern. Moderate amount of stool in the colon. Previously identified calculi at the level of the distal left ureter on prior CT scan are not clearly visualized. XR/XR K[facility] IMPRESSION: Bilateral nephrolithiasis. This study was presented today July 15, 2023 for interpretation. Stat results provided at this time as requested by referring provider.
[2023-07-15 11:30] VITALS: BMI 35.2
--- NOTE | 2023-07-15 11:56 | MHC.SHP ---
Pre-Procedural Eval Section A - 24 Hr Update-Section A only Date of Service: 07/15/23 The patient is an INPATIENT: No The patient has been examined within 24 hours of the surgical procedure. The History & Physical has been completed within 30 days and I have reviewed it.: No Section B - Complete if H&P > 30 days Chief Complaint: Calculus of kidney Details of Present Illness: took anticoagulation yesterday Relevant Social History: None Present Medications: None Medical History: No relevant PMH History of Previous Operations: Relevant previous surgery/procedure and date(s) Allergies: Allergies Allergy/AdvReac Type Severity Reaction Status Date / Time No Known Allergies Allergy Verified 07/15/23 11:31 Review of Systems Sugical H&P ROS: Negative: Constitution, Cardiovascular, Respiratory, Neurological, Psychiatric, Hem-Onc, Allergic/Immunologic, Gastrointestinal, Genitourinary, Musculoskeletal, Integumentary, Endocrine and Eyes/Ears/Nose/Throat Exam Surgical H&P Exam: Normal: HEENT, Normal: Heart, Normal: Lungs, Normal: Extremities, Normal: Abdomen, Normal: Skin and Normal: Neurological Plan Diagnosis/Plan: Unchanged (cystoscopy with left stent removal) I have reviewed the history and physical and performed a pertinent physical examination on my patient. No changes have occurred unless specified. Time Spent With Patient Time: Total time managing care of this patient today ____ minutes.
--- NOTE | 2023-07-15 12:03 | PC.NURSE ---
1150 Dr. Skelton and anesthesia at bedside, pt was recently started on Xarelto (06/21) for LLE DVT. Stopped only yesterday. He will be rescheduled for ESWL. Proceeding today with cysto/left stent removal, no anesthesia.
--- NOTE | 2023-07-15 12:11 | W.PM.OPN ---
Operative Note Operative Note Date of Service: 07/15/23 Narrative: PreOperative Diagnosis: Indwelling left ureteric stent Post Operative Diagnosis: Indwelling left ureteric stent Procedure: Cystoscopy, left stent removal Surgeon: Dr Christopher Skelton Anesthesia: Local Indications for procedure: Stent placed for prior stone. Initial presentation today for ESWL. Had been on blood thinners so stent to be removed only Procedure: After informed consent was verified the patient was brought to the operating room and placed in a supine position. The patient was prepped and draped in a sterile fashion. Safety pause time-out was performed. Cystoscopy performed after injection of lidocaine jelly to urethra. Stent seen emerging from left ureteric orifice grasped and removed. Patient tolerated procedure well and transferred in stable condition to recovery area. Pathology: [] Drains: []
[2023-07-15 12:15] VITALS: BP 150/91; PULSE 58; RESP 18; TEMP 36.3; O2SAT 100
[2023-07-15] MEDS: Phenazopyridine HCL 100 MG TABLET PO (12:29)
== END 2023-07-15 12:35 | disposition home or self-care (01) ==
PROVIDERS: PCP Family Medicine; Visit Provider Urology
PROC: (CPT 52310; 2023-07-15 12:30)
DX: Z46.6 Encounter for fitting and adjustment of urinary device (principal); N20.0 Calculus of kidney
CPT/HCPCS: 52310; 74018; J2250; J2704; J3010

== ENCOUNTER → 2023-07-15 10:52 | Outpatient (BNV) | payer MEDICAID, SELFPAY | PROVIDERS: PCP Family Medicine; Visit Provider Urology | DX: N20.0 Calculus of kidney (principal); Z96.0 Presence of urogenital implants | CPT/HCPCS: 52310 ==

== ENCOUNTER 2023-07-23 15:31 | Outpatient (REF) | payer MEDICAID, SELFPAY | END 2023-07-23 15:32 | disposition home or self-care (01) | LOC: HO.CHCLNP 15:31 | PROVIDERS: Visit Provider Family Medicine | DX: M25.562 Pain in left knee (principal); M25.462 Effusion, left knee | CPT/HCPCS: 87070; 87073; 87205; 89060 ==

== ENCOUNTER 2023-08-12 06:46 | Day surgery (SDC) | payer MEDICAID, SELFPAY ==
--- NOTE | 2023-08-11 10:09 | HO.ANESPROP2 ---
Documented by User: Francisca Murcia NP 08/11/23 10:12 HPI - Anesthesia Eval Consult details Narrative: 42yo M for Right ESWL s/p cysto, etc 05/2023 with GA-LMA 5 Xarelto for hx DVT Suboxone daily PMFSH Active Problems Active Problems: All Active Problems Hyperparathyroidism (Acute) Hypokalemia (Acute) Establishing care with new doctor, encounter for (Acute) Opioid use disorder (Acute) Nephrolithiasis (Acute) Past Medical History Medical History (Updated 08/11/23 @ 07:06 by Veronica Arenas RN) DVT (deep venous thrombosis) History of anticoagulant therapy Opioid use disorder Mood disorder Opiate addiction Nephrolithiasis Family History Family history of problems with anesthesia: No Surgical History History of Problems with Anesthesia: No Social History Social History Household Members: Children and Other Household Members Other:: girlfriend Housing: House Do you presently have visiting nurse or other home services: No Patient Tobacco Use Status: Never used Tobacco Use of substances other than those prescribed or required for medical reasons: Yes Substance Use Type: Heroin Substance Use Type Other:: gummy occas Are you DNR?: No Advance Directives: No Advance Directives Information Provided: Yes service: No Meds Allergies Allergy/AdvReac Type Severity Reaction Status Date / Time No Known Allergies Allergy Verified 07/15/23 11:31 Home Medications ?Medication ?Instructions ?Recorded ?Confirmed ?Last Taken ?Type rivaroxaban 10 mg tablet (Xarelto) 10 mg PO QAM 07/15/23 08/11/23 Unknown History buprenorphine 8 mg-naloxone 2 mg 0.25 film buccal DAILY PRN 08/11/23 08/11/23 Unknown History sublingual film Withdrawal Symptoms Assessment and Plan Assessment Anesthesia Assessment: Chart Reviewed Final Anesthetic Review Family History of Problems with Anesthesia: No History of Problems with Anesthesia: No Documented by User: Minoo Valenzuela MD 08/12/23 07:39 PMFSH Past Medical History Medical History (Updated 08/11/23 @ 07:06 by Veronica Arenas RN) DVT (deep venous thrombosis) History of anticoagulant therapy Opioid use disorder Mood disorder Opiate addiction Nephrolithiasis Social History Social History Household Members: Children and Other Household Members Other:: girlfriend Housing: House Do you presently have visiting nurse or other home services: No Patient Tobacco Use Status: Never used Tobacco Use of substances other than those prescribed or required for medical reasons: Yes Substance Use Type: Heroin Substance Use Type Other:: gummy occas Are you DNR?: No Advance Directives: No Advance Directives Information Provided: Yes service: No Meds Allergies Allergy/AdvReac Type Severity Reaction Status Date / Time No Known Allergies Allergy Verified 07/15/23 11:31 Home Medications ?Medication ?Instructions ?Recorded ?Confirmed ?Last Taken ?Type rivaroxaban 10 mg tablet (Xarelto) 10 mg PO QAM 07/15/23 08/11/23 Unknown History buprenorphine 8 mg-naloxone 2 mg 0.25 film buccal DAILY PRN 08/11/23 08/11/23 Unknown History sublingual film Withdrawal Symptoms Exam Airway Mallampati Class: III TM Dist: >3cm Neck ROM: Full Assessment and Plan Assessment Anesthesia Assessment: Anesthesia Plan Discussed Final Anesthetic Review NPO: Yes ASA Class: III Final Preanesthetic Review: No Changes in Pt Med Stat, Meds/Allgs Chart Reviewed, Consent Obtained/Reviewed and Anes Risks/Benef Reviewed Patient Risk: Intermediate Procedure Risk: Low Anesthetic Plan Anesthetic Plan: GA Disposition: Standard PACU
--- NOTE | ~2023-08-12 | XR_ITS ---
EXAMINATION: XR ABDOMEN KUB CLINICAL INDICATION: Renal stone. COMPARISON: Abdominal radiograph dated 07/15/2023. TECHNIQUE: AP views of the abdomen. FINDINGS: Redemonstration of a right-sided renal stone measuring up to 1.7 cm in greatest dimension, slightly decreased in size when compared to the prior examination. Removal of the previously seen left-sided ureteral stent. Pelvic phleboliths are unchanged. Nonobstructive bowel gas pattern. No acute osseous abnormality. XR/XR KUB IMPRESSION: 1. Right-sided renal stone measuring up to 1.7 cm, slightly decreased in size when compared to the prior examination. 2. Removal of the previously seen left-sided ureteral stent.
[2023-08-12 07:04] VITALS: BMI 34.6
[2023-08-12 07:08] VITALS: BP 149/88; PULSE 88; RESP 18; TEMP 36.1; O2SAT 98
--- NOTE | 2023-08-12 07:32 | MHC.SHP ---
Pre-Procedural Eval Section A - 24 Hr Update-Section A only Date of Service: 08/12/23 The patient is an INPATIENT: No Changes since office visit: No Cold of Flu in the past 2 weeks, No New Medical Problems, No Changes in Medication and No Patient answered all questions The patient has been examined within 24 hours of the surgical procedure. The History & Physical has been completed within 30 days and I have reviewed it.: No Section B - Complete if H&P > 30 days Chief Complaint: Calculus of kidney Details of Present Illness: here for right sided procedure - had left sided procedure previously Relevant Social History: None Medical History: No relevant PMH History of Previous Operations: No relevant previous surgery Allergies: Allergies Allergy/AdvReac Type Severity Reaction Status Date / Time No Known Allergies Allergy Verified 07/15/23 11:31 Review of Systems Sugical H&P ROS: Negative: Constitution, Cardiovascular, Respiratory, Neurological, Psychiatric, Hem-Onc, Allergic/Immunologic, Gastrointestinal, Genitourinary, Musculoskeletal, Integumentary, Endocrine and Eyes/Ears/Nose/Throat Exam Surgical H&P Exam: Normal: HEENT, Normal: Heart, Normal: Lungs, Normal: Extremities, Normal: Abdomen, Normal: Skin and Normal: Neurological Plan Diagnosis/Plan: Unchanged (right sided eswl) I have reviewed the history and physical and performed a pertinent physical examination on my patient. No changes have occurred unless specified. Time Spent With Patient Time: Total time managing care of this patient today ____ minutes.
[2023-08-12] MEDS: levoFLOXacin 500 MG TABLET PO (07:34)
[2023-08-12] MEDS: Lactated Ringers 1,000 ML 100 ML IVCONT (07:34)
--- NOTE | 2023-08-12 08:08 | W.PM.OPN ---
Operative Note Operative Note Date of Service: 08/12/23 Narrative: PreOperative Diagnosis: right Renal stones Post Operative Diagnosis: right Renal stones Procedure: righty ESWL Surgeon: Dr Christopher Skelton Anesthesia: mac/sedation Indications for procedure: The patient understands ESWL may be a staged procedure and subsequent intervention may be required based on imaging after ESWL. Quoted stone clearance rates for a solitary procedure are in the 70-80% range based primarily on stone location. They also understand there is a risk of bleeding to the kidney, infection, damage to adjacent organs, and stone migration following the procedure. - Imaging 15 mm right lower pole Procedure optimization has been performed with IV acetaminophen given in the holding area and 1 L of lactated Ringer's to be given in order to optimize the fluid-stone interface. 20 mg of IV Lasix will be given in the last 5 minutes of the procedure to optimize stone clearance. Procedure: After informed consent was verified the patient was brought to the operating room and placed in a supine position. Anesthesia was performed per protocol. Safety pause time-out was performed. Imaging was displayed in the room and laterality confirmed. ESWL was performed. The 1st 500 shocks were performed at 60 hertz. These were performed with increasing power. Once maximum power was reached the rate was increased to 180 hertz. A total of 2500 shocks were given. Targeted imaging with ultrasound/fluoroscopy showed stone smudging suggestive of disintegration. The patient tolerated the procedure well and was transferred to the recovery area upon completion. Post procedure imaging will be organized. There was no evidence for flank discoloration.
[2023-08-12 08:33] VITALS: BP 133/87; PULSE 62; RESP 16; TEMP 36.1; O2SAT 99
[2023-08-12 08:38] VITALS: BP 143/87; PULSE 60; RESP 16; O2SAT 96
[2023-08-12 08:43] VITALS: BP 140/87; PULSE 60; RESP 16; O2SAT 96
[2023-08-12 08:48] VITALS: BP 142/80; PULSE 58; RESP 16; O2SAT 96
[2023-08-12] MEDS: Phenazopyridine HCL 100 MG TABLET PO (08:56)
[2023-08-12 09:03] VITALS: BP 147/85; PULSE 60; RESP 16; TEMP 36.2; O2SAT 96
== END 2023-08-12 09:48 | disposition home or self-care (01) ==
PROVIDERS: PCP Family Medicine; Visit Provider Urology
PROC: (CPT 50590; principal; 2023-08-12 08:50)
DX: N20.0 Calculus of kidney (principal); E21.3 Hyperparathyroidism, unspecified
CPT/HCPCS: 50590; 74018; J0131; J1940; J2250; J2704; J3010

== ENCOUNTER → 2023-08-12 06:46 | Outpatient (BNV) | payer MEDICAID, SELFPAY | PROVIDERS: PCP Family Medicine; Visit Provider Urology | DX: N20.0 Calculus of kidney (principal) | CPT/HCPCS: 50590 ==

== ENCOUNTER 2023-09-07 14:58 | Outpatient (REF) | payer MEDICAID, SELFPAY ==
--- NOTE | ~2023-09-07 | US_ITS ---
EXAMINATION: US RETROPERITONEAL LIMITED (RENAL ONLY) CLINICAL INFORMATION: Calculus of kidney. COMPARISON: X-ray KUB 08/12/2023 and 07/15/2023. CT abdomen and pelvis 05/30/2023. TECHNIQUE: Real-time imaging of the kidneys. FINDINGS: RIGHT KIDNEY: 13.2 x 7.1 x 6.2 cm (SAG x AP x TRV). The kidney is normal in size, contour, and echogenicity. Renal cortical thickness is normal. No focal parenchymal lesions or hydronephrosis. Nonobstructing stones measuring up to 1.1 cm. LEFT KIDNEY: 12.0 x 6.2 x 7.0 cm (SAG x AP x TRV). The kidney is normal in size, contour, and echogenicity. Renal cortical thickness is normal. No calculi or focal parenchymal lesions. No hydronephrosis. US/US renal BI IMPRESSION: Nonobstructing right renal nephrolithiasis. No hydronephrosis.
== END 2023-09-07 14:59 | disposition home or self-care (01) ==
LOC: HO.HMGCX 14:58
PROVIDERS: PCP Family Medicine; Visit Provider Urology
DX: N20.0 Calculus of kidney (principal)
CPT/HCPCS: 76775

== ENCOUNTER → 2024-02-22 07:57 | Outpatient (REF) | payer MEDICAID, SELFPAY ==
--- NOTE | ~2024-02-22 | NM_ITS ---
EXAMINATION: NM PARATHYROID SCAN CLINICAL INFORMATION: Hyperparathyroidism, unspecified. COMPARISON: None available. TECHNIQUE: A double radionuclide study of the thyroid bed region and upper chest in multiple projections was performed 4 hours after the oral administration of 990 microcuries I-123 sodium iodide and immediately following the intravenous administration of 30.0 mCi Tc-99m sestamibi. Repeat imaging was performed 2 hours later. The iodide images were electronically subtracted from the sestamibi images using different weighting factors. FINDINGS: There is homogeneous uptake of radioiodine throughout both lobes. The thyroid gland appears to be normal in size and shape. There are no focal areas of increased or diminished uptake. Technetium 99m sestamibi images demonstrate homogeneous thyroid activity. Solitary focal asymmetric increased tracer activity is present corresponding to the region of the inferior pole of the right lobe of the thyroid gland. Computer-generated digital subtraction images reveal solitary focal area of excess sestamibi activity corresponding to the inferior pole of the right lobe of the thyroid gland. NM/LA parathyroid IMPRESSION: Evidence of solitary focal excess sestamibi activity suggestive of parathyroid adenoma or hyperplasia is seen at the inferior pole of the right lobe of the thyroid gland. There is homogeneous uptake of radioiodine in the thyroid gland which is also normal in size and shape. Electronically signed by: Cipriano Blair MD 02/23/2024 10:49 AM HERBER
== END ==
LOC: HO.NUCMED 07:57
PROVIDERS: PCP Family Medicine; Visit Provider Internal Medicine Hypertension Specialist
DX: E21.3 Hyperparathyroidism, unspecified (principal)
CPT/HCPCS: 78070; A9500; A9516